=== PATIENT | male | born 1960 | race Caucasian/White ===

== ENCOUNTER 2025-05-04 22:10 | Emergency (ER) | payer MEDICAID, SELFPAY ==
--- OUTSIDE RECORDS SUMMARY | 2025-04-23 20:11 | XMS_ITS | Encounter Summary ---
Author Organization [facility] Address [address] [place] [address] Care Team Providers Care Physician Ophthalmologist Name Role Phone Physician, No Pcp Primary Care Provider Unavaila ble Reason for Visit * Reason Comments Urinary Retention Left AMA from room 5 61 about 2 hours ago. Now back for same complaint. * Auth/Cert (Routine) Specialty Diagnoses / Procedures Referred By Ashlee alexandra Referred To Contact Diagnoses Urinary retention Obstructive uropathy Procedures . Cresencio Farias MD [address] [place] [id number] Phone: tel: fax: [facility] [address] [place] [phone] Phone: tel: Referral ID Status Reason Start Date Expiration Date Visits Re quested Visits Authorized [id number] 1 1 Encounter Details Date Type Department Care Team (Latest Contact Info) Description 04/23/2025 8:11 PM EST - 05/04/2025 5:00 PM [facility] Hospital Encounter [facility] [address] [place] [phone] Micki Hayes MD [address] [place] [phone] Cresencio Farias MD [address] [place] [phone] Chandan Law MD [address] [place] [address] Dave Sandra MD [address] [place] [phone] Rafita Contreras MD [address] [place] [phone] Ricardo Loredo MD [address] [place], [place] [phone] Urinary retention (Primary Dx); Obstructive uropathy; Gross hematuria; Bilateral leg edema [facility] Social History Tobacco Use Types Packs/Day Years Used Date Smoking Tobacco: Former Cigarettes Smokeless Tobacco: Never Alcohol Use Standard Drinks/Week Comments Not Currently 0 (1 standard drink = 0.6 oz pur e alcohol) Housing Instability Answer Date Recorde d Are you worried that in the next 2 months you may not have stable housing? Patient declined 03/22/2025 Food Access & Nutrition Answer Date Rec orded Do you have access to a vari ety of food including fruits and vegetables? Patient declined 03/22/2025 Health Literacy Answer Date Recorded How often do you need to hav e someone help you when you read instructions, pamphlets, or other written material from your doctor or pharmacy? Patient declined 03/22/2025 Caregiver: How often do you need to have someone help you when you read instructions, pamphlets, or other written material from your doctor or pharmacy? Not on file Financial Risk Answer Date Recorded How hard is it for you to pa y for the very basics like food, housing, medical care, and air conditioning / heating? Patient declined 03/22/2025 Transportation Answer Date Recorded Has the lack of transportati on kept you from meetings, work, or from getting things needed for daily living? Patient declined 03/22/2025 Has the lack of transportati on kept you from medical appointments or from getting medications? Patient declined 03/22/2025 Social Isolation Answer Date Recorded How often do you feel lonely or isolated from those around you? Patient declined 03/22/2025 Food Risk Answer Date Recorded Within the past 12 months we worried whether our food would run out before we got money to buy more. Patient declined 025 Within the past 12 months th e food we bought just didn't last and we didn't have money to get more. Patient declined 02/25 Dependent Care Answer Date Recorded Do you need help finding or paying for care for your loved ones. For example, child care associate or elderly care for an older adult? Patient declined 03/22/2025 Education Answer Date Recorded Do you think completing more education or training, like finishing a GED, going to college, or learning a trade, would be helpful for you? Patient declined 03/22/2025 Employment and Income Answer Date Recor ded During the last four weeks, have you been actively looking for work? Patient declined 03/22/2025 Living Situation Answer Date Recorded What is your living situation? Unrecognized valu e 03/22/2025 Interpersonal Safety Answer Date Record ed Physical Abuse Unrecognized value 04/24/2025 Verbal Abuse Unrecognized value 04/24/2025 Sex and Gender Information Value Date Recorded Sex Assigned at Not on file Legal Sex Male 11:44 PM EST Gender Identity Not on file Sexual Orientation Not on file documented as of this encounter Last Filed Vital Signs Vital Sign Reading Time Taken Comments Blood Pressure 97/66 05/04/2025 3:21 PM EST Pulse 81 05/04/2025 3:21 PM EST Temperature 36.5 C (97.7 F) 05/04/2025 3:21 PM EST Respiratory Rate 16 05/04/2025 3:21 PM EST Oxygen Saturation 100% 05/04/2025 3:21 PM EST Inhaled Oxygen Concentration - - Weight 85.9 kg (189 lb 4.8 oz) 05/03/2025 6:00 A M EST Height 177.8 cm (5' 10 ) 04/23/2025 6:42 PM EST Body Mass Index 27.16 04/23/2025 6:42 PM EST documented in this encounter Functional Status * Calculated C-SSRS Risk Score (Lifetime/Recent) Answer Date of Assessment Author No Risk Indicated 04/24/2025 2:02 AM Jaz Schmidt RN * [place] Suicide Severity Rating Scale (Screener/Recent Self-Report) Question Answer Date of Assessment Author 1. Wish to be (Past 1 Month) No 025 2:02 AM Jaz Schmidt, ROLY 2. Non-Specific Active Suici prema Thoughts (Past 1 Month) No 04/24/2025 2:02 AM Galina Schmidt RN 6. Suicidal Behavior (Lifetime) No 5 2:02 AM Jaz Schmidt RN documented as of this encounter Discharge Summaries * Ricardo Loredo MD - 05/04/2025 12:41 PM EST Images from the original note were not included. [place] DISCHARGE SUMMARY Patient Information [facility] : 1960 [64 y.o.] Admitting Provider Cresencio Farias MD Discharge Provider Ricardo Loredo MD, Ricardo Loredo MD Primary Care Physician No Pcp Physician Admission Date 04/23/2025 Discharge Date 05/04/2025 Summary of Hospital Problems Primary Discharge Diagnosis: Obstructive uropathy Complicated UTI Discharge Destination: SNF Code Status at Discharge: Full Code - Default Hospital Course Summary LOS: 9 days 63-year-old male with a past medical history as above who presented to the hospital secondary to obstructive uropathy with bilateral hydronephrosis, patient was initially seen in the ED and left AGAINST MEDICAL ADVICE but returned soon after due to persistent retention. # CKD stage IV. Patient has advanced CKD presumably due to chronic obstruction, patient has refusedFoley catheter, has a history of BPH for which urology has seen the patient, currently he has been compliant with self-catheterization 4 times a day, patient has been extensively counseled about importance of compliance with this approach. Renal function remains close to baseline no clear evidence of BALWINDER. Patient has concomitant metabolic acidosis due to tubular dysfunction. Renal function has been monitored given ongoing diuresis, remains stable, patient seen by PT and recommended rehab # Complicated UTI. Patient has evidence of acute cystitis, culture showing ESBL E. coli, ceftriaxone has been discontinued, start renally adjusted meropenem, discussed with ID, recommended 7 days of carbapenem, given poor renal function and mild QTc prolongation not a candidate for other therapies.He has completed his treatment on 05/02/2025 # Obstructive uropathy secondary to BPH, he has bilateral hydronephrosis, patient absolutely refuses Dill catheter, he was seen by urology, he will follow-up with them as an outpatient, recommended continue straight cath 4 times a day. # Acute on chronic congestive heart failure with severe systolic dysfunction. Patient presented with evidence of volume overload, adequate diuresis, weight coming down, . Limited options for guideline directed medical therapy, volume status has improved and he has no signs of pulmonary congestion, started low- dose beta-patrick. Peripheral edema improving. Patient is stable for discharge on bumetanide and low-dose carvedilol, treatment can be optimized as an outpatient, he appears to be close toeuvolemia # Right lower extremity DVT. Patient was on Eliquis for recurrent DVT, patient has evidence of right thigh hematoma and question of bleeding in the left kidney, patient has refused IVC filter. Patient is at high risk for venous thrombolic event, he refuses to consider workup for PE, encourage ambulation, patient has been made fully aware of the risk of catastrophic thromboembolic phenomena. # Thigh hematoma, stable, H&H without significant change. No signs of expansion. # Dyspnea. The patient reported an episode of dyspnea at rest on 04/27/25, he denies any chest pain or palpitations, he has some intermittent cough, no acute changes, he stated this shortness of breath has been going on and off intermittently, at that time symptoms worsened and he demanded to get some supplemental oxygen for comfort despite having normal O2 saturation on room air, despite nasal cannula he continued to have shortness of breath and requested a mask, he was provided a shovel mask by respiratory therapy and he felt better, the episode lasted about 2 or 3 hours. Resolved without intervention. EKG showed sinus tachycardia with PVCs and nonspecific ST-T wave changes, chest x-ray shows some nonspecific patchy opacities in the bases and possibly a small pleural effusion, no significant changes when compared to prior study. The patient was made aware of the risk of PE, he is not on anticoagulation, he has documented lower extremity DVT of his right popliteal and has multiple comorbidities putting him at risk for venous thromboembolism. He has been offered IVC filter that he declined. His anticoagulation was discontinued because of suspected left renal bleed and left thigh hematoma, the patient states he would not take anticoagulation anyway. He is confident that his symptoms are not associated to venous thromboembolism, the patient was offered VQ scan that he declined. .His symptoms after he had a shovel mask placed by respiratory therapy are resolved, patient insist that he does not want any further workup to rule out PE. No new symptoms after initial event resolved. # Goals of care discussion. During this admission, given the multiple refusal to interventions and his hesitancy to consider renal replacement therapy should renal function worsened as well as refusing chronic indwelling Dill catheter I offer him to discuss goals of care, he is not interested in changing his CODE STATUS, he continues to be a full code, patient is hopeful that his medical issues will eventually improve, he does not want to discuss palliative approach or hospice services at thistime. He states his healthcare proxy his brother Michel who is currently going through stressful lifeevents as he recently lost his house in a fire and his also recently . He does not want him to be contacted and did not provide contact information. Update 05/04/25 : Patient cleared for SNF discharge. Will likely less than 4 weeks SNF stay. Outpatient follow-up with PCP and nephrology upon discharge. Follow-Up Instructions and Recommendations [facility] [address] [facility] [phone] Primary care provider (PCP) No Pcp Physician Discharge Procedure Orders Discharge Diet: Cardiac Heart Healthy Diet (Low Cholesterol / Low Fat / No Added Salt) Order Specific Question Answer Comments Discharge diet you should follow at home Cardiac Heart Healthy Diet (Low Cholesterol / Low Fat / NoAdded Salt) No strenuous activity Primary care provider (PCP) Order Specific Question Answer Comments Follow-Up as Needed Follow-Up as Needed There are no outpatient Patient Instructions on file for this admission. Discharge Medications Your medication list START taking these medications Instructions Last Dose Given Next Dose Due bumetanide 1 mg tablet Commonly known as: BUMEX Start taking on: May 05, 2025 Take 1 tablet (1 mg total) by mouth 1 (one) time each day. carvediloL 3.125 mg tablet Commonly known as: COREG Take 1 tablet (3.125 mg total) by mouth 2 (two) times a day with meals. finasteride 5 mg tablet Commonly known as: PROSCAR Start taking on: May 05, 2025 Take 1 tablet (5 mg total) by mouth 1 (one) time each day. Do not crush, chew, or split. senna 8.6 mg tablet Commonly known as: SENOKOT Take 2 tablets (17.2 mg total) by mouth 2 (two) times a day. sodium bicarbonate 650 mg tablet Take 1 tablet (650 mg total) by mouth 2 (two) times a day. CONTINUE taking these medications Instructions Last Dose Given Next Dose Due apixaban 5 mg tablet Commonly known as: ELIQUIS Take 1 tablet (5 mg total) by mouth 2 (two) times a day. tamsulosin 0.4 mg 24 hr capsule Commonly known as: FLOMAX Take 2 capsules (0.8 mg total) by mouth 1 (one) time each day. Capsules should be taken 30 minutes following the same meal each day. STOP taking these medications furosemide 20 mg tablet Commonly known as: LASIX Where to Get Your Medications Information about where to get these medications is not yet available Ask your nurse or doctor about these medications bumetanide 1 mg tablet carvediloL 3.125 mg tablet finasteride 5 mg tablet senna 8.6 mg tablet sodium bicarbonate 650 mg tablet Vitals Visit Vitals BP 109/77 Pulse 67 Temp 36.1 ??C (97 ??F) Resp 18 Temp (24hrs), Av.1 ??C (97 ??F), Min:35.9 ??C (96.6 ??F), Max:36.3 ??C (97.3 ??F) Body mass index is 27.16 kg/m??. No results found for: PTWT , PTHT Greater than 30 minutes spent preparing this discharge, evaluating patient, discussing care plan with nursing and ICC. documented in this encounter Medications at Time of Discharge apixaban (ELIQUIS) 5 mg tabletIndications :deep venous thrombosis Take 1 tablet (5 mg total) by mouth 2 (two) times a day. bumetanide (BUMEX) 1 mg tablet Take 1 tablet (1 mg total) by mouth 1 (one) time each day. 05/05/2025 6 carvediloL (COREG) 3.125 mg tablet Take 1 tablet (3.125 mg total) by mouth 2 (two) times a day with meals. 05/04/2025 6 finasteride (PROSCAR) 5 mg tablet Take 1 tablet (5 mg total) by mouth 1 (one) time each day. Do not crush, chew, or split. 05/05/2025 6 senna (SENOKOT) 8.6 mg tablet Take 2 tablets (17.2 mg total) by mouth 2 (two) times a day. 05/04/2025 sodium bicarbonate 650 mg tablet Take 1 tablet (650 mg total) by mouth 2 (two) times a day. 05/04/2025 tamsulosin (FLOMAX) 0.4 mg 24 hr capsule Take 2 capsules (0.8 mg total) by mouth 1 (one) time each day. Capsules should be taken 30 minutes following the same meal each day. documented as of this encounter Ordered Prescriptions Prescription Sig Dispense Quantity Refills Last Filled Start Date End Date sodium bicarbonate 650 mg tablet Take 1 tablet (650 mg total) by mouth 2 (two) times a day. 05/04/2025 senna (SENOKOT) 8.6 mg tablet Take 2 tablets (17.2 mg total) by mouth 2 (two) times a day. 05/04/2025 finasteride (PROSCAR) 5 mg tablet Take 1 tablet (5 mg total) by mouth 1 (one) time each day. Do not crush, chew, or split. 05/05/2025 6 carvediloL (COREG) 3.125 mg tablet Take 1 tablet (3.125 mg total) by mouth 2 (two) times a day with meals. 05/04/2025 6 bumetanide (BUMEX) 1 mg tablet Take 1 tablet (1 mg total) by mouth 1 (one) time each day. 05/05/2025 6 documented in this encounter Discharge Disposition Disposition Code Departure Means Destination Comment s [facility] documented in this encounter Progress Notes * YASSINE Romo - 05/04/2025 3:09 PM EST Secondary to documentation on 04-30-25 it was this writers understanding MDS was forwarded to [facility]/ Nursing Screening Unit. Today determined MDS not completed/forwarded. This social service assistant completed MDS and presented to ICC/RN for signature as required. Spoke with [facility], nursing reviewer who is informed we await approval enabling patient to dc to next level of care. [facility] arranged for 5pm in the event approval received. Unit /ICC updated. Message forwarded to liaison --await response. * Jean Claude Ford MD - 05/04/2025 10:35 AM EST Images from the original note were not included. Progress Note CHIEF COMPLAINT F/u CKD SUBJECTIVE Seen and examined MEDICAL HISTORY Medical History[1] MEDICATIONS MEDSSCHEDULED[2] MEDSPRN[3] MEDSCONTINUOUS[4] OBJECTIVE Vital signs in last 24 hours: Visit Vitals BP 109/77 Pulse 67 Temp 36.1 ??C (97 ??F) Resp 18 Intake/Output last 24 hours: Intake/Output Summary (Last 24 hours) at 05/04/2025 1035 Last data filed at 05/04/2025 0800 Gross per 24 hour Intake 960 ml Output 600 ml Net 360 ml Weights: Admission Weight: Weight: 86.6 kg (191 lb) Wt Readings from Last 3 Encounters: 05/03/25 85.9 kg (189 lb 4.8 oz) 04/23/25 86.7 kg (191 lb 3.2 oz) 04/16/25 83.9 kg (185 lb) Physical Exam: General: No acute distress HEENT: Normocephalic, atraumatic, anicteric Cardiovascular: S1 S2 normal Respiratory: unlabored Gl: soft non-distended Extremities: No cyanosis Neurological: Alert Integumentary: no rash Psych: Calm, cooperative LABS Results from last 7 days Lab Units 05/03/25 0553 05/02/25 0622 05/01/25 0711 WBC AUTO K/mcL 9.1 10.8 9.5 HEMOGLOBIN g/dL 10.4* 10.6* 10.7* HEMATOCRIT % 33.1* 33.7* 34.7* MCV FL 81.7 82.4 82.4 PLATELETS K/mcL 301 302 301 Results from last 7 days Lab Units 05/02/25 0622 05/01/25 0711 04/30/25 0704 CREATININE mg/dL 3.48* 3.47* 3.35* BUN mg/dL 98* 95* 92* SODIUM mmol/L 131* 134 135 POTASSIUM mmol/L 4.8 4.6 4.2 CHLORIDE mmol/L 99 102 102 CO2 mmol/L 18* 18* 19* Phosphorus Date Value Ref Range Status 05/02/2025 6.9 (H) 2.5 - 4.5 mg/dL Final 05/01/2025 6.1 (H) 2.5 - 4.5 mg/dL Final 04/30/2025 5.9 (H) 2.5 - 4.5 mg/dL Final No results found for: IRON , TIBC , FERRITIN No results found for: COLORUA , CLARITYUA , SPECGRAVUA , PHUA , PROTUA , GLUCOSEUA , KETONESUA , BILIRUBINUA , BLOODUA , UROBILINOGUA , NITRITEUA IMPRESSION and PLAN CKD 4 Metabolic acidosis Hydronephrosis HFrEF Scr stable at baseline CKD due to obstructive uropathy in the setting of outlet obstruction of the urinary bladder secondary to prostatomegaly CT scan of the abdomen had previously showed marked urinary bladder distention with associated severe hydronephrosis and moderate hydroureter Unknown baseline kidney function although suspect chronic obstructive uropathy Back in 2022 he had presented with difficulty passing urine and hematuria Per urology prior note: unwilling to have any testing, catheterization, workup, or discussion Patient refuses Dill and agreeable to straight cath himself Metabolic acidosis due to tubular dysfunction HFrEF with LVEF 28% REC Sodium bicarbonate 650 mg bid C/w bumetanide C/w tamsulosin Straight cath per patient Follow kidney function and electrolytes Jean Claude Ford MD [1] Past Medical History: Diagnosis Date DVT (deep venous thrombosis) ([facility] V24, [facility] V28) Hypertension [2] bumetanide, 1 mg, oral, Daily carvediloL, 3.125 mg, oral, BID with meals finasteride, 5 mg, oral, Daily polyetheylene glycol, 17 g, oral, Nightly senna, 2 tablet, oral, BID sodium bicarbonate, 650 mg, oral, BID sodium chloride, 10 mL, intravenous, BID tamsulosin, 0.8 mg, oral, Nightly [3] PRN medications: acetaminophen, LORazepam, naloxone, ondansetron (ZOFRAN- ODT) disintegrating tablet OR ondansetron, Insert peripheral IV AND Maintain IV access AND Saline lock IV AND sodium chloride AND sodium chloride [4] * YASSINE Romo - 05/04/2025 9:34 AM EST Per attending patient stable for transfer at 2pm to [facility]. Transport arrangedwith [place] liaison and confirmed. Transfer is contingent on [facility] MDS approval submitted 05-03-25. Liaison communicated with [facility] whose intention it was to review screen this am allowing pt to be considered for next level of care. Nursing and ICC to be informed of plan at am rounds. It is noted patient has declined family communication. Social work to verify with patient chooses destination be shared with family. To follow. * YASSINE Romo - 05/03/2025 2:[address] Parish [facility] Per Gabby acosta; MDS approval anticipated in am per her conversation with [facility]/ nursing. To follow. * Linda Hatch PT - 05/03/2025 11:30 AM EST [facility] Physical Therapy Treatment PT Discharge Recommendations: longterm facility placement Staff Recommendations for safe patient handling: stand by assist, rwalker Precautions Medical Precautions: Fall Risk, Contact Safety Interventions: Call agrawal within reach RUE Weight Bearing Status: Full LUE Weight Bearing Status: Full RLE Weight Bearing Status: Full LLE Weight Bearing Status: Full History of Present Illness: Patient is a 64 y.o. male admitted to [facility] on 04/23/2025 with: Problem List[1] Modified Woods Scale: 3=Moderate disability. Requires some help, but able to walk unassisted. Fall prevention education provided including use of call light in hospital, use of appropriate assistive device, safe mobility techniques, and safety measures at home. Continue PT as per POC. Subjective You dont have to worry about my balance Objective 05/03/25 1130 PT Last Visit PT Received On 05/03/25 General Family/Caregiver Present No PT Time Calculation PT Start Time 1130 PT Stop Time 1200 PT Time Calculation (min) 30 min Precautions Medical Precautions Fall Risk;Contact Safety Interventions Call agrawal within reach RUE Weight Bearing Status Full LUE Weight Bearing Status Full RLE Weight Bearing Status Full LLE Weight Bearing Status Full Vital Signs Heart Rate 72 SpO2 100 % Oxygen Therapy O2 Flow Rate (L/min) 1.5 L/min Pain Assessment Pain Assessment No/denies pain Cognition Overall Cognitive Status WFL Activity Tolerance Endurance Tolerates 10 - 20 min exercise with multiple rests Activity Tolerance Comments pt fatigued quickly after ambulating 20 ft Static Sitting Balance Static Sitting-Level of Assistance Independent Static Standing Balance Static Standing-Level of Assistance Standby assistance Static Standing-Balance Support Right upper extremity supported;Left upper extremity supported Dynamic Standing Balance Dynamic Standing-Level of Assistance Standby assistance Dynamic Standing-Balance Ambulation Dynamic Standing-Balance Support Right upper extremity supported;Left upper extremity supported Transfers Sit to Stand Assistance Close supervision Chair/Bed to Chair/Bed Transfer Assistance Standby assistance Ambulation Walking Assistance Standby assistance Device Rolling walker Distance Ambulated (ft) 20 Comments pt completed ambulating 20 ft, but stated that was enough exercise for now Procedures Procedures Therapeutic Activity Therapeutic Activity Therapeutic Activity Time Entry 30 Therapeutic Activity 1 pt in bed at outset of visit; moved supine-sitting independently , and movedsit to stand without difficulty; assistance given to manage long 02 tubing; pt ambulated with rwalker x 20 f t in room before sitting down; sba given and occasional assistance with 02 tubing ; offered to place commode over toilet to raise the seat height but pt prefers using commode. Pt not interested in further actiivty , stating fatigue PT Assessment PT Assessment Results Decreased endurance;Decreased mobility;Impaired gait;Impaired balance Prognosis Good Evaluation/Treatment Tolerance Patient limited by fatigue Medical Staff Made Aware Yes Plan Treatment/Interventions Functional transfer training;LE strengthening/ROM;Endurance training;Patient/family training;Equipment eval/education;Gait training;Compensatory technique education;Continued e valuation;Balance training PT Plan Skilled PT PT Frequency 2-5 days per week PT Discharge Recommendations longterm facility placement PT - Evaluation Status Complete Procedure/Treatment: Procedures Procedures: Therapeutic Activity Therapeutic Activity Therapeutic Activity Time Entry: 30 Therapeutic Activity 1: pt in bed at outset of visit; moved supine-sitting independently , and moved sit to stand without difficulty; assistance given to manage long 02 tubing; pt ambulated with rwalker x 20 f t in room before sitting down; sba given and occasional assistance with 02 tubing ; offered to place commode over toilet to raise the seat height but pt prefers using commode. Pt not interested in further actiivty , stating fatigue Patient left sitting up in bed. RN notified of pt. status, location, response to treatment, and therapy recommendations. Physical Therapy Assessment/Plan PT Assessment PT Assessment Results: Decreased endurance, Decreased mobility, Impaired gait, Impaired balance Prognosis: Good Evaluation/Treatment Tolerance: Patient limited by fatigue Medical Staff Made Aware: Yes Plan Treatment/Interventions: Functional transfer training, LE strengthening/ROM, Endurance training, Patient/family training, Equipment eval/education, Gait training, Compensatory technique education, Continued evaluation, Balance training PT Plan: Skilled PT PT Frequency: 2-5 days per week PT Duration of Sessions: 15-30 min per session PT Treatments per day: 1 time per day PT Discharge Recommendations: longterm facility placement PT - Evaluation Status: Complete Physical Therapy Goals/Education Encounter Problems Encounter Problems (Active) Template: Physical Therapy Problem: PT Short Term Goals Dates: Start: 04/29/25 Goal: Pt will ambulate up to 100ft with RW with Supervision Dates: Start: 04/29/25 Expected End: 05/06/25 Encounter Problems (Resolved) There are no resolved problems. Education Documentation Home Exercise Program, taught by Linda Hatch PT at 05/03/2025 2:55 PM. Learner: Patient Readiness: Acceptance Method: Explanation Response: Verbalizes Understanding Comment: pt educated in importance of physical actiivty Mobility Training, taught by Linda Hatch PT at 05/03/2025 2:55 PM. Learner: Patient Readiness: Acceptance Method: Explanation Response: Verbalizes Understanding Comment: pt educated in importance of physical actiivty Education Comments No comments found. Linda Hatch PT [1] Patient Active Problem List Diagnosis ARF (acute renal failure) (CMS/[facility] V24) Left leg pain Urinary retention Obstructive uropathy * Ricardo Loredo MD - 05/03/2025 11:29 AM EST Images from the original note were not included. ROSS PROGRESS NOTE Date: 05/03/2025 Author: Ricardo Loredo MD Patient ID: Gallito Heart is a 64 y.o. male : 1960 MR#: [id number] SUBJECTIVE Subjective Patient seen and examined by bedside Remains non compliant Nephrology following - appreciate recommendations Allergies Patient has no known allergies. Current Medications: MEDSSCHEDULED[1] MEDSCONTINUOUS[2] MEDSPRN[3] OBJECTIVE Vitals: 05/02/25201205/03/25 0315 05/03/25 0600 05/03/25 08 BP: 98/84 105/86 111/87 BP Location: Right arm Right arm Right arm Patient Position: Sitting Sitting Pulse: 78 75 72 Resp: 16 18 16 Temp: 36.4 ??C (97.5 ??F) 36.5 ??C (97.7 ??F) 36.5 ??C (97.7 ??F) TempSrc: Oral Oral Oral SpO2: 100% 100% 100% Weight: 85.9 kg (189 lb 4.8 oz) Height: Physical Exam General : Pt lying in bed in no acute distress Head : NC/AT Resp : CTA B/L, no audible wheezing CVS : RRR, no audible murmurs GI : Abd distended, NT Neuro : Alert and oriented x 3 LABS HEMATOLOGY Lab Results Component Value Date WBC 9.1 05/03/2025 HGB 10.4 (L) 05/03/2025 HCT 33.1 (L) 05/03/2025 MCV 81.7 05/03/2025 PLT 301 05/03/2025 CHEMISTRY Lab Results Component Value Date GLUCOSE 95 05/02/2025 NA 131 (L) 05/02/2025 K 4.8 05/02/2025 CO2 18 (L) 05/02/2025 CL 99 05/02/2025 BUN 98 (H) 05/02/2025 CREATININE 3.48 (H) 05/02/2025 EGFR 19 (L) 05/02/2025 CALCIUM 7.7 (L) 05/02/2025 MG 1.9 05/02/2025 PHOS 6.9 (H) 05/02/2025 ANIONGAP 14 (H) 05/02/2025 Imaging: XR Chest 1 View Narrative: PROCEDURE: AP chest radiograph. HISTORY: SOB, pulmonary edema suspected. COMPARISON: 04/15/2025. FINDINGS: Mildly hypoventilatory inspiratory effort. Patchy linear opacities at the bases, left greater than right, more extensive than on the previous study. Slight blunting of the right costophrenic angle, pleural thickening versus a trace pleural effusion. Stable mild cardiac enlargement. Mild degenerative changes of the spine and shoulders. Impression: Patchy opacities at both bases appears slightly more prominent than on the previous study. Trace right pleural effusion or pleural thickening. -------- FINAL REPORT -------- Dictated By: Uche Ham Dictated Date: 04/27/2025 12:51 ET Assigned Physician: Uche Ham Reviewed and Electronically Signed By: Uche Ham Signed Date: 04/27/2025 12:56 ET Workstation ID: [id number] Transcribed By: Self Edit Transcribed Date: 04/27/2025 12:51 ET ASSESSMENT & PLAN 63-year-old male with a past medical history as above who presented to the hospital secondary to obstructive uropathy with bilateral hydronephrosis, patient was initially seen in the ED and left AGAINST MEDICAL ADVICE but returned soon after due to persistent retention. # CKD stage IV. Patient has advanced CKD presumably due to chronic obstruction, patient has refusedFoley catheter, has a history of BPH for which urology has seen the patient, currently he has been compliant with self-catheterization 4 times a day, patient has been extensively counseled about importance of compliance with this approach. Renal function remains close to baseline no clear evidence of BALWINDER. Patient has concomitant metabolic acidosis due to tubular dysfunction. Renal function has been monitored given ongoing diuresis, remains stable, patient seen by PT and recommended rehab, awaiting placement. # Complicated UTI. Patient has evidence of acute cystitis, culture showing ESBL E. coli, ceftriaxone has been discontinued, start renally adjusted meropenem, discussed with ID, recommended 7 days of carbapenem, given poor renal function and mild QTc prolongation not a candidate for other therapies.He has completed his treatment on 05/02/2025 # Obstructive uropathy secondary to BPH, he has bilateral hydronephrosis, patient absolutely refuses Dill catheter, he was seen by urology, he will follow-up with them as an outpatient, recommended continue straight cath 4 times a day. # Acute on chronic congestive heart failure with severe systolic dysfunction. Patient presented with evidence of volume overload, adequate diuresis, weight coming down, . Limited options for guideline directed medical therapy, volume status has improved and he has no signs of pulmonary congestion, started low- dose beta-patrick. Peripheral edema improving. Patient is stable for discharge on bumetanide and low-dose carvedilol, treatment can be optimized as an outpatient, he appears to be close toeuvolemia # Right lower extremity DVT. Patient was on Eliquis for recurrent DVT, patient has evidence of right thigh hematoma and question of bleeding in the left kidney, patient has refused IVC filter. Patient is at high risk for venous thrombolic event, he refuses to consider workup for PE, encourage ambulation, patient has been made fully aware of the risk of catastrophic thromboembolic phenomena. # Thigh hematoma, stable, H&H without significant change. No signs of expansion. # Dyspnea. The patient reported an episode of dyspnea at rest on 04/27/25, he denies any chest pain or palpitations, he has some intermittent cough, no acute changes, he stated this shortness of breath has been going on and off intermittently, at that time symptoms worsened and he demanded to get some supplemental oxygen for comfort despite having normal O2 saturation on room air, despite nasal cannula he continued to have shortness of breath and requested a mask, he was provided a shovel mask by respiratory therapy and he felt better, the episode lasted about 2 or 3 hours. Resolved without intervention. EKG showed sinus tachycardia with PVCs and nonspecific ST-T wave changes, chest x-ray abe ws some nonspecific patchy opacities in the bases and possibly a small pleural effusion, no significant changes when compared to prior study. The patient was made aware of the risk of PE, he is not on anticoagulation, he has documented lower extremity DVT of his right popliteal and has multiple comorbidities putting him at risk for venous thromboembolism. He has been offered IVC filter that he declined. His anticoagulation was discontinued because of suspected left renal bleed and left thigh hematoma, the patient states he would not take anticoagulation anyway. He is confident that his symptoms are not associated to venous thromboembolism, the patient was offered VQ scan that he declined. .His symptoms after he had a shovel mask placed by respiratory therapy are resolved, patient insist that he does not want any further workup to rule out PE. No new symptoms after initial event resolved. # Goals of care discussion. During this admission, given the multiple refusal to interventions and his hesitancy to consider renal replacement therapy should renal function worsened as well as refusing chronic indwelling Dill catheter I offer him to discuss goals of care, he is not interested in changing his CODE STATUS, he continues to be a full code, patient is hopeful that his medical issues will eventually improve, he does not want to discuss palliative approach or hospice services at thistime. He states his healthcare proxy his brother Michel who is currently going through stressful lifeevents as he recently lost his house in a fire and his also recently . He does not want him to be contacted and did not provide contact information. This dictation was performed using voice recognition software. Word substitution may have occurred and may have gone unnoticed and uncorrected. [1] bumetanide, 1 mg, oral, Daily carvediloL, 3.125 mg, oral, BID with meals finasteride, 5 mg, oral, Daily polyetheylene glycol, 17 g, oral, Nightly senna, 2 tablet, oral, BID sodium bicarbonate, 650 mg, oral, BID sodium chloride, 10 mL, intravenous, BID tamsulosin, 0.8 mg, oral, Nightly [2] [3] PRN medications: acetaminophen, LORazepam, naloxone, ondansetron (ZOFRAN- ODT) disintegrating tablet OR ondansetron, Insert peripheral IV AND Maintain IV access AND Saline lock IV AND sodium chloride AND sodium chloride * Jean Claude Ford MD - 05/03/2025 11:12 AM EST Images from the original note were not included. Progress Note CHIEF COMPLAINT F/u CKD SUBJECTIVE Seen and examined He is upset about his food MEDICAL HISTORY Medical History[1] MEDICATIONS MEDSSCHEDULED[2] MEDSPRN[3] MEDSCONTINUOUS[4] OBJECTIVE Vital signs in last 24 hours: Visit Vitals BP 111/87 (BP Location: Right arm) Pulse 72 Temp 36.5 ??C (97.7 ??F) (Oral) Resp 16 Intake/Output last 24 hours: Intake/Output Summary (Last 24 hours) at 05/03/2025 1112 Last data filed at 05/03/2025 1000 Gross per 24 hour Intake 605 ml Output 875 ml Net -270 ml Weights: Admission Weight: Weight: 86.6 kg (191 lb) Wt Readings from Last 3 Encounters: 05/03/25 85.9 kg (189 lb 4.8 oz) 04/23/25 86.7 kg (191 lb 3.2 oz) 04/16/25 83.9 kg (185 lb) Physical Exam: General: No acute distress HEENT: Normocephalic, atraumatic, anicteric Cardiovascular: S1 S2 normal Respiratory: unlabored Gl: soft non-distended Extremities: No cyanosis Neurological: Alert Integumentary: no rash Psych: Calm, cooperative LABS Results from last 7 days Lab Units 05/03/25 0553 05/02/25 0622 05/01/25 0711 WBC AUTO K/mcL 9.1 10.8 9.5 HEMOGLOBIN g/dL 10.4* 10.6* 10.7* HEMATOCRIT % 33.1* 33.7* 34.7* MCV FL 81.7 82.4 82.4 PLATELETS K/mcL 301 302 301 Results from last 7 days Lab Units 05/02/25 0622 05/01/25 0711 04/30/25 0704 CREATININE mg/dL 3.48* 3.47* 3.35* BUN mg/dL 98* 95* 92* SODIUM mmol/L 131* 134 135 POTASSIUM mmol/L 4.8 4.6 4.2 CHLORIDE mmol/L 99 102 102 CO2 mmol/L 18* 18* 19* Phosphorus Date Value Ref Range Status 05/02/2025 6.9 (H) 2.5 - 4.5 mg/dL Final 05/01/2025 6.1 (H) 2.5 - 4.5 mg/dL Final 04/30/2025 5.9 (H) 2.5 - 4.5 mg/dL Final No results found for: IRON , TIBC , FERRITIN No results found for: COLORUA , CLARITYUA , SPECGRAVUA , PHUA , PROTUA , GLUCOSEUA , KETONESUA , BILIRUBINUA , BLOODUA , UROBILINOGUA , NITRITEUA IMPRESSION and PLAN CKD 4 Metabolic acidosis Hydronephrosis HFrEF Scr stable probably his baseline CKD due to obstructive uropathy in the setting of outlet obstruction of the urinary bladder secondary to prostatomegaly CT scan of the abdomen had previously showed marked urinary bladder distention with associated severe hydronephrosis and moderate hydroureter Unknown baseline kidney function although suspect chronic obstructive uropathy Back in 2022 he had presented with difficulty passing urine and hematuria Per urology prior note: unwilling to have any testing, catheterization, workup, or discussion Patient refuses Dill and agreeable to straight cath himself Metabolic acidosis due to tubular dysfunction HFrEF with LVEF 28% REC Sodium bicarbonate 650 mg bid C/w bumetanide C/w tamsulosin Straight cath Follow kidney function and electrolytes Jean Claude Ford MD [1] Past Medical History: Diagnosis Date DVT (deep venous thrombosis) ([facility] V24, [facility] V28) Hypertension [2] bumetanide, 1 mg, oral, Daily carvediloL, 3.125 mg, oral, BID with meals finasteride, 5 mg, oral, Daily polyetheylene glycol, 17 g, oral, Nightly senna, 2 tablet, oral, BID sodium chloride, 10 mL, intravenous, BID tamsulosin, 0.8 mg, oral, Nightly [3] PRN medications: acetaminophen, LORazepam, naloxone, ondansetron (ZOFRAN- ODT) disintegrating tablet OR ondansetron, Insert peripheral IV AND Maintain IV access AND Saline lock IV AND sodium chloride AND sodium chloride [4] * Cari Norman RN - 05/03/2025 10:17 AM EST This RN provided straight catheterization kit to patient , Patient refused to straight catheterize himself. This RN provided education to patient and offered to straight catheterize , patient refused. Patient states : I'll do it when I'm ready. Additional education provided on Q6 hour straight catheterization. * Jean Claude Garrett RN - 05/02/2025 6:26 PM EST Goals: Identify possible barriers to meeting goals/advancing plan of care: Awaiting rehab placement Stability of the patient: Moderately Stable - Low risk of patient condition declining or worsening End of Shift Summary: Patient breathing mor comfortably this shift. Encouraged q6h straight cathing, encouraged patient to chose the interval of times that work best for him d/t fatigue after meals. Remains uninterested in F/C option despite frequency of straight caths. * YASSINE Briscoe - 05/02/2025 4:16 PM EST Rim Technician- CM Progress Note Patient continues to require acute level hospital care. HELADIO: 05/03-05/04 Barriers: [place] Medicaid screen Disposition: SNF- [facility] and network systems analyst requested that this investigative writer discuss discharge disposition and process with patient. Patient awareand voiced understanding, no questions and appreciated information. Case management social media manager will remain available to assess, support, provide advocacy and assist with discharge planning as appropriate. * Rafita Contreras MD - 05/02/2025 3:06 PM EST Gallito Reganestrada [birth year] 64 y.o. [id number] Rafita Contreras, * INTERVAL HISTORY: No events overnight PAST MEDICAL HISTORY:Hypertension, CKD stage IV, BPH, history of lower extremity cellulitis, history of DVT of the lower extremity x 2, chronic systolic heart failure, severe mitral regurgitation, anemia of chronic disease, history of alcohol abuse, noncompliance. ED TRIAGE REPORT: He was inpatient here for urinary retention due to BPH but left AMA today because he wanted chap stick and some inhaler and couldn't get any. He has checked back in to continue histreatment. He states that he was getting catheterized every 6 hours. He states that he doesn't feellike his bladder is full. A bladder scan was just done and he has greater than 499 currently. He isrefusing to be straight cathed. ASSESSMENT/PLAN: 63-year-old male with a past medical history as above who presented to the hospital secondary to obstructive uropathy with bilateral hydronephrosis, patient was initially seen in theED and left AGAINST MEDICAL ADVICE but returned soon after due to persistent retention. # CKD stage IV. Patient has advanced CKD presumably due to chronic obstruction, patient has refusedFoley catheter, has a history of BPH for which urology has seen the patient, currently he has been compliant with self-catheterization 4 times a day, patient has been extensively counseled about importance of compliance with this approach. Renal function remains close to baseline no clear evidence of BALWINDER. Patient has concomitant metabolic acidosis due to tubular dysfunction. Renal function has been monitored given ongoing diuresis, remains stable, patient seen by PT and recommended rehab, awaiting placement. # Complicated UTI. Patient has evidence of acute cystitis, culture showing ESBL E. coli, ceftriaxone has been discontinued, start renally adjusted meropenem, discussed with ID, recommended 7 days of carbapenem, given poor renal function and mild QTc prolongation not a candidate for other therapies.He has completed his treatment on 05/02/2025 # Obstructive uropathy secondary to BPH, he has bilateral hydronephrosis, patient absolutely refuses Dill catheter, he was seen by urology, he will follow-up with them as an outpatient, recommended continue straight cath 4 times a day. # Acute on chronic congestive heart failure with severe systolic dysfunction. Patient presented with evidence of volume overload, adequate diuresis, weight coming down, . Limited options for guideline directed medical therapy, volume status has improved and he has no signs of pulmonary congestion, started low- dose beta-patrick. Peripheral edema improving. Patient is stable for discharge on bumetanide and low-dose carvedilol, treatment can be optimized as an outpatient, he appears to be close toeuvolemia # Right lower extremity DVT. Patient was on Eliquis for recurrent DVT, patient has evidence of right thigh hematoma and question of bleeding in the left kidney, patient has refused IVC filter. Patient is at high risk for venous thrombolic event, he refuses to consider workup for PE, encourage ambulation, patient has been made fully aware of the risk of catastrophic thromboembolic phenomena. # Thigh hematoma, stable, H&H without significant change. No signs of expansion. # Dyspnea. The patient reported an episode of dyspnea at rest on 04/27/25, he denies any chest pain or palpitations, he has some intermittent cough, no acute changes, he stated this shortness of breath has been going on and off intermittently, at that time symptoms worsened and he demanded to get some supplemental oxygen for comfort despite having normal O2 saturation on room air, despite nasal cannula he continued to have shortness of breath and requested a mask, he was provided a shovel mask by respiratory therapy and he felt better, the episode lasted about 2 or 3 hours. Resolved without intervention. EKG showed sinus tachycardia with PVCs and nonspecific ST-T wave changes, chest x-ray abe ws some nonspecific patchy opacities in the bases and possibly a small pleural effusion, no significant changes when compared to prior study. The patient was made aware of the risk of PE, he is not on anticoagulation, he has documented lower extremity DVT of his right popliteal and has multiple comorbidities putting him at risk for venous thromboembolism. He has been offered IVC filter that he declined. His anticoagulation was discontinued because of suspected left renal bleed and left thigh hematoma, the patient states he would not take anticoagulation anyway. He is confident that his symptoms are not associated to venous thromboembolism, the patient was offered VQ scan that he declined. .His symptoms after he had a shovel mask placed by respiratory therapy are resolved, patient insist that he does not want any further workup to rule out PE. No new symptoms after initial event resolved. # Goals of care discussion. During this admission, given the multiple refusal to interventions and his hesitancy to consider renal replacement therapy should renal function worsened as well as refusing chronic indwelling Dill catheter I offer him to discuss goals of care, he is not interested in changing his CODE STATUS, he continues to be a full code, patient is hopeful that his medical issues will eventually improve, he does not want to discuss palliative approach or hospice services at thistime. He states his healthcare proxy his brother Michel who is currently going through stressful lifeevents as he recently lost his house in a fire and his also recently . He does not want him to be contacted and did not provide contact information. Disposition: Social work following, RESULTS: CBC. Results from last 7 days Lab Units 05/02/25 0622 05/01/25 0711 04/30/25 0704 WBC AUTO K/mcL 10.8 9.5 8.3 HEMOGLOBIN g/dL 10.6* 10.7* 9.8* HEMATOCRIT % 33.7* 34.7* 30.2* MCV FL 82.4 82.4 80.7 PLATELETS K/mcL 302 301 271 LYMPHS PCT AUTO % 19.1 20.2 20.3 MONO PCT AUTO % 11.9 12.9 12.0 EOS PCT AUTO % 1.2 1.6 0.8 Coag Results from last 7 days Lab Units 04/26/25 0649 INR 1.4 Anti-Xa Hematology No lab exists for component: LACTATEDEHYD BMP Results from last 7 days Lab Units 05/02/25 0622 05/01/25 0711 04/30/25 0704 SODIUM mmol/L 131* 134 135 POTASSIUM mmol/L 4.8 4.6 4.2 CHLORIDE mmol/L 99 102 102 CO2 mmol/L 18* 18* 19* ANION GAP 14* 14* 14* BUN mg/dL 98* 95* 92* CREATININE mg/dL 3.48* 3.47* 3.35* CALCIUM mg/dL 7.7* 8.3* 7.9* MAGNESIUM mg/dL 1.9 2.0 1.8* PHOSPHORUS mg/dL 6.9* 6.1* 5.9* Cardiac LFT/other Metabolic No lab exists for component: FREET3 , SEDRATEESR , CRPHIGHLYSEN , LDLCHOL Glucose. Results from last 7 days Lab Units 05/02/25 0622 05/01/25 0711 04/30/25 0704 04/29/25 0718 04/28/25 0557 04/27/25 0644 04/26/25 0649 GLUCOSE mg/dL 95 92 89 94 89 89 95 Scheduled Medications PRN Medications IV Medications bumetanide, 1 mg, Daily carvediloL, 3.125 mg, BID with meals finasteride, 5 mg, Daily meropenem, 500 mg, q12h polyetheylene glycol, 17 g, Nightly senna, 2 tablet, BID sodium chloride, 10 mL, BID tamsulosin, 0.8 mg, Nightly acetaminophen, 650 mg, q6h PRN LORazepam, 0.5 mg, q12h PRN naloxone, 0.04 mg, PRN ondansetron (ZOFRAN-ODT) disintegrating tablet, 4 mg, q8h PRN Or ondansetron, 4 mg, q8h PRN sodium chloride, 10 mL, PRN SUBJECTIVE : Shortness of breath with activity which is his baseline, no other complaints, he reports he has ambulated in the room. Having regular bowel movements including today. No overt bleeding. OBJECTIVE: Vitals: 05/02/25 0437 05/02/25 0600 05/02/25 0749 05/02/25 1453 BP: 98/81 106/88 (!) 111/90 BP Location: Right arm Patient Position: Lying Pulse: 65 69 78 Resp: 18 18 20 Temp: 36.3 ??C (97.4 ??F) 36 ??C (96.8 ??F) 36.2 ??C (97.2 ??F) TempSrc: Temporal SpO2: 100% 100% 100% Weight: 86.1 kg (189 lb 14.4 oz) Height: Temp (24hrs), Av.3 ??C (97.3 ??F), Min:36 ??C (96.8 ??F), Max:36.4 ??C (97.6 ??F) Intake/Output Summary (Last 24 hours) at 05/02/2025 1507 Last data filed at 05/02/2025 1207 Gross per 24 hour Intake 600 ml Output 1275 ml Net -675 ml Wt Readings from Last 1 Encounters: 05/02/25 0600 86.1 kg (189 lb 14.4 oz) 04/30/25 0600 85.6 kg (188 lb 12.8 oz) 04/30/25 0500 85.6 kg (188 lb 12.8 oz) 04/29/25 0500 84.2 kg (185 lb 9.6 oz) 04/27/25 0600 82.9 kg (182 lb 12.8 oz) 04/26/25 06 84.5 kg (186 lb 3.2 oz) 04/25/25 06 85.7 kg (189 lb) 04/24/25 0600 86.8 kg (191 lb 6.4 oz) 04/23/25 1842 86.6 kg (191 lb) PHYSICAL EXAM: Gen: Alert,, anxious. Not in acute distress CV -RRR no MGR Lungs -CTAB, good air movement, no increased work of breathing Abd - Soft, non-tender, non-distended Extremities - No LE edema, left thigh palpable hematoma, stable, ecchymosis present. Neuro - AO x3, speech is clear, face is symmetric Imaging: XR Chest 1 View Narrative: PROCEDURE: AP chest radiograph. HISTORY: SOB, pulmonary edema suspected. COMPARISON: 04/15/2025. FINDINGS: Mildly hypoventilatory inspiratory effort. Patchy linear opacities at the bases, left greater than right, more extensive than on the previous study. Slight blunting of the right costophrenic angle, pleural thickening versus a trace pleural effusion. Stable mild cardiac enlargement. Mild degenerative changes of the spine and shoulders. Impression: Patchy opacities at both bases appears slightly more prominent than on the previous study. Trace right pleural effusion or pleural thickening. -------- FINAL REPORT -------- Dictated By: Uche Ham Dictated Date: 04/27/2025 12:51 ET Assigned Physician: Uche Ham Reviewed and Electronically Signed By: Uche Ham Signed Date: 04/27/2025 12:56 ET Workstation ID: [id number] Transcribed By: Self Edit Transcribed Date: 04/27/2025 12:51 ET [x] Code status: Full Code - Default [x] VTE Prophylaxis: Pharmacological contraindicated given hematoma and renal bleed. [x] Lines, tubes, drains: Straight catheterization intermittently Health Care proxy with Phone number: Patient refused to provide contact information for his brotherwho he states he is the healthcare proxy. * Jean Claude Ford MD - 05/02/2025 3:05 PM EST Images from the original note were not included. Progress Note CHIEF COMPLAINT F/u CKD SUBJECTIVE Seen and examined MEDICAL HISTORY Medical History[1] MEDICATIONS MEDSSCHEDULED[2] MEDSPRN[3] MEDSCONTINUOUS[4] OBJECTIVE Vital signs in last 24 hours: Visit Vitals BP (!) 111/90 Pulse 78 Temp 36.2 ??C (97.2 ??F) Resp 20 Intake/Output last 24 hours: Intake/Output Summary (Last 24 hours) at 05/02/2025 1505 Last data filed at 05/02/2025 1207 Gross per 24 hour Intake 600 ml Output 1275 ml Net -675 ml Weights: Admission Weight: Weight: 86.6 kg (191 lb) Wt Readings from Last 3 Encounters: 05/02/25 86.1 kg (189 lb 14.4 oz) 04/23/25 86.7 kg (191 lb 3.2 oz) 04/16/25 83.9 kg (185 lb) Physical Exam: General: No acute distress HEENT: Normocephalic, atraumatic, anicteric Cardiovascular: S1 S2 normal Respiratory: unlabored Gl: soft non-distended Extremities: No cyanosis Neurological: Alert Integumentary: no rash Psych: Calm, cooperative LABS Results from last 7 days Lab Units 05/02/25 0622 05/01/25 0711 04/30/25 0704 WBC AUTO K/mcL 10.8 9.5 8.3 HEMOGLOBIN g/dL 10.6* 10.7* 9.8* HEMATOCRIT % 33.7* 34.7* 30.2* MCV FL 82.4 82.4 80.7 PLATELETS K/mcL 302 301 271 Results from last 7 days Lab Units 05/02/25 0622 05/01/25 0711 04/30/25 0704 CREATININE mg/dL 3.48* 3.47* 3.35* BUN mg/dL 98* 95* 92* SODIUM mmol/L 131* 134 135 POTASSIUM mmol/L 4.8 4.6 4.2 CHLORIDE mmol/L 99 102 102 CO2 mmol/L 18* 18* 19* Phosphorus Date Value Ref Range Status 05/02/2025 6.9 (H) 2.5 - 4.5 mg/dL Final 05/01/2025 6.1 (H) 2.5 - 4.5 mg/dL Final 04/30/2025 5.9 (H) 2.5 - 4.5 mg/dL Final No results found for: IRON , TIBC , FERRITIN No results found for: COLORUA , CLARITYUA , SPECGRAVUA , PHUA , PROTUA , GLUCOSEUA , KETONESUA , BILIRUBINUA , BLOODUA , UROBILINOGUA , NITRITEUA IMPRESSION and PLAN CKD 4 Metabolic acidosis Hydronephrosis HFrEF Scr stable CKD due to obstructive uropathy in the setting of outlet obstruction of the urinary bladder secondary to prostatomegaly CT scan of the abdomen had previously showed marked urinary bladder distention with associated severe hydronephrosis and moderate hydroureter Unknown baseline kidney function although suspect chronic obstructive uropathy Back in 2022 he had presented with difficulty passing urine and hematuria Per urology prior note: unwilling to have any testing, catheterization, workup, or discussion Patient refuses Dill and agreeable to straight cath himself Metabolic acidosis due to tubular dysfunction HFrEF with LVEF 28% REC C/w bumetanide C/w tamsulosin Educate patient he will end up on dialysis in the next 6-12 months if he refuses intervention Follow kidney function and electrolytes Jean Claude Ford MD [1] Past Medical History: Diagnosis Date DVT (deep venous thrombosis) ([facility] V24, [facility] V28) Hypertension [2] bumetanide, 1 mg, oral, Daily carvediloL, 3.125 mg, oral, BID with meals finasteride, 5 mg, oral, Daily meropenem, 500 mg, intravenous, q12h polyetheylene glycol, 17 g, oral, Nightly senna, 2 tablet, oral, BID sodium chloride, 10 mL, intravenous, BID tamsulosin, 0.8 mg, oral, Nightly [3] PRN medications: acetaminophen, LORazepam, naloxone, ondansetron (ZOFRAN- ODT) disintegrating tablet OR ondansetron, Insert peripheral IV AND Maintain IV access AND Saline lock IV AND sodium chloride AND sodium chloride [4] * Nevin García - 05/02/2025 1:15 PM EST SPIRITUAL CARE Date/Time:05/02/2025 at 1:15 PM EST 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 of Visit: 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 Reason for Visit: Spiritual/Emotional Support and Spiritual Assessment Time Spent: 15 Minutes Location: [address] [place] [address] Sacramental Encounters: Sacrament of Sick-Anointing: Anointed Spiritual Distress Assessment: Spiritual Distress Assessment at beginning of visit Meaning - Overall Life Balance: Some evidence of unmet spiritual need Transcendence: No evidence of unmet spiritual need Values - Acknowledgement: No evidence of unmet spiritual need Values - Control: No evidence of unmet spiritual need Psycho-Social Identity: No evidence of unmet spiritual need SDAT Beginning of Visit Average Score: 0.2 Spiritual Distress Assessment at end of visit Meaning - Overall Life Balance: Some evidence of unmet spiritual need Transcendence: No evidence of unmet spiritual need Values - Acknowledgement: No evidence of unmet spiritual need Values - Control: No evidence of unmet spiritual need Psycho-Social Identity: No evidence of unmet spiritual need SDAT End of Visit Average Score: 0.2 Spiritual Assessment/Distress Spiritual Care Assessment: Assessment: [place], was awake, alert, lying down in the bed resting at the time of visit. Voiced feeling much better compared to time of admission. Voiced being well care for by caregiver and well supported by his brother. Hopeful thing continue to go well. Shayla hindu is Jewish, expressed desire to receive sacrament of anointing of the sick, prayed for good health. Thankful for the visit. Intervention: NE Spiritual Care Interventions : provided support, explored hope, listened empathically, and provided prayer Outcomes: expressed gratitude and expressed peace Plan of Care: Visit as needed *Reference: Spiritual Distress Assessment Tool: The SDAT is a clinical tool used by chaplains to identify unmet spiritual and emotional needs that can impact Goals of Care in the following categories: Spiritual Distress Assessment Legend Spiritual Needs Related Questions Meaning Are you having difficulties coping with what is happening to your now? Does your hospitalization have any repercussions on the way you live usually? Transcendence Do you have a particular hindu, shayla, or spirituality? Is your hindu/spirituality/shayla challenged by what is happening to you now? Values Do you think that the health professionals caring for you know you well enough? Do you feel that you are participating in the decisions made about your care? Psycho-Social Identity Do you have any worries or difficulties regarding your family or other persons close to you? Do you feel lonely? Do you have links to your shayla community? SCALE 0= no evidence of unmet spiritual needs 1= some evidence of unmet spiritual needs 2= substantial evidence of unmet spiritual needs 3= evidence of severe unmet spiritual needs * Rafita Contreras MD - 05/01/2025 5:13 PM EST [facility] 04/23/2025 1960 64 y.o. [id number] Rafita Contreras, * INTERVAL HISTORY: No events overnight PAST MEDICAL HISTORY:Hypertension, CKD stage IV, BPH, history of lower extremity cellulitis, history of DVT of the lower extremity x 2, chronic systolic heart failure, severe mitral regurgitation, anemia of chronic disease, history of alcohol abuse, noncompliance. ED TRIAGE REPORT: He was inpatient here for urinary retention due to BPH but left AMA today because he wanted chap stick and some inhaler and couldn't get any. He has checked back in to continue histreatment. He states that he was getting catheterized every 6 hours. He states that he doesn't feellike his bladder is full. A bladder scan was just done and he has greater than 499 currently. He isrefusing to be straight cathed. ASSESSMENT/PLAN: 63-year-old male with a past medical history as above who presented to the hospital secondary to obstructive uropathy with bilateral hydronephrosis, patient was initially seen in theED and left AGAINST MEDICAL ADVICE but returned soon after due to persistent retention. # CKD stage IV. Patient has advanced CKD presumably due to chronic obstruction, patient continues to refuse Dill catheter, has a history of BPH for which urology has seen the patient, currently he has been compliant with self- catheterization 4 times a day, patient has been extensively counseled about importance of compliance with this approach. Renal function remains close to baseline no clear evidence of BALWINDER. Continue to monitor closely given ongoing diuresis for CHF. Continue diuretics, tolerating well. # Complicated UTI. Patient has evidence of acute cystitis, culture showing ESBL E. coli, ceftriaxone has been discontinued, start renally adjusted meropenem, discussed with ID, needs 7 days of carbapenem, given poor renal function and mild QTc prolongation not a candidate for other therapies. He will and his treatment on 05/02/2025 # Obstructive uropathy secondary to BPH, he has bilateral hydronephrosis, patient continues to refuse Dill catheter, he was seen by urology, he will follow-up with them as an outpatient, recommendedcontinue straight cath 4 times a day, he continues to refuse Dill. # Acute on chronic congestive heart failure with severe systolic dysfunction. Patient presented with evidence of volume overload, adequate diuresis, weight coming down, . Limited options for guideline directed medical therapy, volume status has improved and he has no signs of pulmonary congestion, started low- dose beta-patrick. Peripheral edema improving # Right lower extremity DVT. Patient was on Eliquis for recurrent DVT, patient has evidence of right thigh hematoma and question of bleeding in the left kidney, patient has refused IVC filter. Patient is at high risk for venous thrombolic event, he refuses to consider workup for PE, encourage ambulation, patient has been made fully aware of the risk of catastrophic thromboembolic phenomena. # Thigh hematoma, stable, H&H without significant change. No signs of expansion. # Dyspnea. The patient reported an episode of dyspnea at rest on 04/27/25, he denies any chest pain or palpitations, he has some intermittent cough, no acute changes, he stated this shortness of breath has been going on and off intermittently, at that time symptoms worsened and he demanded to get some supplemental oxygen for comfort despite having normal O2 saturation on room air, despite nasal cannula he continued to have shortness of breath and requested a mask, he was provided a shovel mask by respiratory therapy and he felt better, the episode lasted about 2 or 3 hours. Resolved without intervention. EKG showed sinus tachycardia with PVCs and nonspecific ST-T wave changes, chest x-ray abe ws some nonspecific patchy opacities in the bases and possibly a small pleural effusion, no significant changes when compared to prior study. The patient was made aware of the risk of PE, he is not on anticoagulation, he has documented lower extremity DVT of his right popliteal and has multiple comorbidities putting him at risk for venous thromboembolism. He has been offered IVC filter that he declined. His anticoagulation was discontinued because of suspected left renal bleed and left thigh hematoma, the patient states he would not take anticoagulation anyway. He is confident that his symptoms are not associated to venous thromboembolism, the patient was offered VQ scan that he declined. .His symptoms after he had a shovel mask placed by respiratory therapy are resolved, patient insist that he does not want any further workup to rule out PE. No new symptoms after initial event resolved. # Goals of care discussion. During this admission, given the multiple refusal to interventions and his hesitancy to consider renal replacement therapy should renal function worsened as well as refusing chronic indwelling Dill catheter I offer him to discuss goals of care, he is not interested in changing his CODE STATUS, he continues to be a full code, patient is hopeful that his medical issues will eventually improve, he does not want to discuss palliative approach or hospice services at thistime. He states his healthcare proxy his brother Michel who is currently going through stressful lifeevents as he recently lost his house in a fire and his also recently . He does not want him to be contacted and did not provide contact information. Disposition: Need to complete 7 days of IV antibiotics. RESULTS: CBC. Results from last 7 days Lab Units 05/01/25 0711 04/30/25 0704 04/29/25 0718 WBC AUTO K/mcL 9.5 8.3 11.1* HEMOGLOBIN g/dL 10.7* 9.8* 11.0* HEMATOCRIT % 34.7* 30.2* 35.0* MCV FL 82.4 80.7 82.4 PLATELETS K/mcL 301 271 337 LYMPHS PCT AUTO % 20.2 20.3 18.9 MONO PCT AUTO % 12.9 12.0 11.6 EOS PCT AUTO % 1.6 0.8 0.6 Coag Results from last 7 days Lab Units 04/26/25 0649 INR 1.4 Anti-Xa Hematology No lab exists for component: LACTATEDEHYD BMP Results from last 7 days Lab Units 05/01/25 0711 04/30/25 0704 04/29/25 0718 SODIUM mmol/L 134 135 136 POTASSIUM mmol/L 4.6 4.2 4.4 CHLORIDE mmol/L 102 102 101 CO2 mmol/L 18* 19* 21 ANION GAP 14* 14* 14* BUN mg/dL 95* 92* 92* CREATININE mg/dL 3.47* 3.35* 3.68* CALCIUM mg/dL 8.3* 7.9* 8.2* MAGNESIUM mg/dL 2.0 1.8* 1.8* PHOSPHORUS mg/dL 6.1* 5.9* 5.9* Cardiac LFT/other Results from last 7 days Lab Units 04/25/25 0707 ALT unit/L 63* AST unit/L 99* ALK PHOS unit/L 327* BILIRUBIN TOTAL mg/dL 0.6 TOTAL PROTEIN g/dL 5.8* ALBUMIN g/dL 3.1* Metabolic No lab exists for component: FREET3 , SEDRATEESR , CRPHIGHLYSEN , LDLCHOL Glucose. Results from last 7 days Lab Units 05/01/25 0711 04/30/25 0704 04/29/25 0718 04/28/25 0557 04/27/25 0644 04/26/25 0649 04/25/25 0707 GLUCOSE mg/dL 92 89 94 89 89 95 104* Scheduled Medications PRN Medications IV Medications bumetanide, 1 mg, Daily carvediloL, 3.125 mg, BID with meals finasteride, 5 mg, Daily meropenem, 500 mg, q12h polyetheylene glycol, 17 g, Nightly senna, 2 tablet, BID sodium chloride, 10 mL, BID tamsulosin, 0.8 mg, Nightly acetaminophen, 650 mg, q6h PRN LORazepam, 0.5 mg, q12h PRN naloxone, 0.04 mg, PRN ondansetron (ZOFRAN-ODT) disintegrating tablet, 4 mg, q8h PRN Or ondansetron, 4 mg, q8h PRN sodium chloride, 10 mL, PRN SUBJECTIVE : Shortness of breath with activity which is his baseline, no other complaints, he reports he has ambulated in the room. Having regular bowel movements. No bleeding. OBJECTIVE: Vitals: 04/30/25 1930 05/01/25 0258 05/01/25 0800 05/01/25 1435 BP: (!) 121/94 100/83 106/84 (!) 110/91 BP Location: Patient Position: Pulse: 89 90 84 Resp: 16 16 19 Temp: 36.8 ??C (98.3 ??F) 36.5 ??C (97.7 ??F) 36.4 ??C (97.5 ??F) TempSrc: SpO2: 100% 100% 100% 98% Weight: Height: Temp (24hrs), Av.6 ??C (97.8 ??F), Min:36.4 ??C (97.5 ??F), Max:36.8 ??C (98.3 ??F) Intake/Output Summary (Last 24 hours) at 05/01/2025 1713 Last data filed at 05/01/2025 1633 Gross per 24 hour Intake 883 ml Output 1625 ml Net -742 ml Wt Readings from Last 1 Encounters: 04/30/25 0600 85.6 kg (188 lb 12.8 oz) 04/30/25 0500 85.6 kg (188 lb 12.8 oz) 04/29/25 0500 84.2 kg (185 lb 9.6 oz) 04/27/25 0600 82.9 kg (182 lb 12.8 oz) 04/26/25 0600 84.5 kg (186 lb 3.2 oz) 04/25/25 0600 85.7 kg (189 lb) 04/24/25 0600 86.8 kg (191 lb 6.4 oz) 04/23/25 1842 86.6 kg (191 lb) PHYSICAL EXAM: Gen: Alert,, anxious. Not in acute distress CV -RRR no MGR Lungs -CTAB, good air movement, no increased work of breathing Abd - Soft, non-tender, non-distended Extremities - No LE edema Neuro - AO x3, speech is clear, face is symmetric Imaging: XR Chest 1 View Narrative: PROCEDURE: AP chest radiograph. HISTORY: SOB, pulmonary edema suspected. COMPARISON: 04/15/2025. FINDINGS: Mildly hypoventilatory inspiratory effort. Patchy linear opacities at the bases, left greater than right, more extensive than on the previous study. Slight blunting of the right costophrenic angle, pleural thickening versus a trace pleural effusion. Stable mild cardiac enlargement. Mild degenerative changes of the spine and shoulders. Impression: Patchy opacities at both bases appears slightly more prominent than on the previous study. Trace right pleural effusion or pleural thickening. -------- FINAL REPORT -------- Dictated By: Uche Ham Dictated Date: 04/27/2025 12:51 ET Assigned Physician: Uche Ham Reviewed and Electronically Signed By: Uche Ham Signed Date: 04/27/2025 12:56 ET Workstation ID: [id number] Transcribed By: Self Edit Transcribed Date: 04/27/2025 12:51 ET [x] Code status: Full Code - Default [x] VTE Prophylaxis: Pharmacological contraindicated given hematoma and renal bleed. [x] Lines, tubes, drains: Straight catheterization intermittently Health Care proxy with Phone number: * Jean Claude Ford MD - 05/01/2025 3:43 PM EST Images from the original note were not included. Progress Note CHIEF COMPLAINT F/u CKD SUBJECTIVE Seen and examined MEDICAL HISTORY Medical History[1] MEDICATIONS MEDSSCHEDULED[2] MEDSPRN[3] MEDSCONTINUOUS[4] OBJECTIVE Vital signs in last 24 hours: Visit Vitals BP (!) 110/91 Pulse 84 Temp 36.4 ??C (97.5 ??F) Resp 19 Intake/Output last 24 hours: Intake/Output Summary (Last 24 hours) at 05/01/2025 1543 Last data filed at 05/01/2025 1151 Gross per 24 hour Intake 283 ml Output 1400 ml Net -1117 ml Weights: Admission Weight: Weight: 86.6 kg (191 lb) Wt Readings from Last 3 Encounters: 04/30/25 85.6 kg (188 lb 12.8 oz) 04/23/25 86.7 kg (191 lb 3.2 oz) 04/16/25 83.9 kg (185 lb) Physical Exam: General: No acute distress HEENT: Normocephalic, atraumatic, anicteric Cardiovascular: S1 S2 normal Respiratory: unlabored Gl: soft non-distended Extremities: No cyanosis Neurological: Alert Integumentary: no rash Psych: Calm, cooperative LABS Results from last 7 days Lab Units 05/01/25 0711 04/30/25 0704 04/29/25 0718 WBC AUTO K/mcL 9.5 8.3 11.1* HEMOGLOBIN g/dL 10.7* 9.8* 11.0* HEMATOCRIT % 34.7* 30.2* 35.0* MCV FL 82.4 80.7 82.4 PLATELETS K/mcL 301 271 337 Results from last 7 days Lab Units 05/01/25 0711 04/30/25 0704 04/29/25 0718 CREATININE mg/dL 3.47* 3.35* 3.68* BUN mg/dL 95* 92* 92* SODIUM mmol/L 134 135 136 POTASSIUM mmol/L 4.6 4.2 4.4 CHLORIDE mmol/L 102 102 101 CO2 mmol/L 18* 19* 21 Phosphorus Date Value Ref Range Status 05/01/2025 6.1 (H) 2.5 - 4.5 mg/dL Final 04/30/2025 5.9 (H) 2.5 - 4.5 mg/dL Final 04/29/2025 5.9 (H) 2.5 - 4.5 mg/dL Final No results found for: IRON , TIBC , FERRITIN No results found for: COLORUA , CLARITYUA , SPECGRAVUA , PHUA , PROTUA , GLUCOSEUA , KETONESUA , BILIRUBINUA , BLOODUA , UROBILINOGUA , NITRITEUA IMPRESSION and PLAN CKD 4 Metabolic acidosis Hydronephrosis HFrEF Scr stable CKD due to obstructive uropathy in the setting of outlet obstruction of the urinary bladder secondary to prostatomegaly CT scan of the abdomen had previously showed marked urinary bladder distention with associated severe hydronephrosis and moderate hydroureter Unknown baseline kidney function although suspect chronic obstructive uropathy Back in 2022 he had presented with difficulty passing urine and hematuria Per urology prior note: unwilling to have any testing, catheterization, workup, or discussion Patient refuses Dill and agreeable to straight cath himself Metabolic acidosis due to tubular dysfunction HFrEF with LVEF 28% REC C/w bumetanide C/w tamsulosin Educate patient he will end up on dialysis in the next 6-12 months as he refuses intervention Follow kidney function and electrolytes Jean Claude Ford MD [1] Past Medical History: Diagnosis Date DVT (deep venous thrombosis) ([facility] V24, [facility] V28) Hypertension [2] bumetanide, 1 mg, oral, Daily carvediloL, 3.125 mg, oral, BID with meals finasteride, 5 mg, oral, Daily meropenem, 500 mg, intravenous, q12h polyetheylene glycol, 17 g, oral, Nightly senna, 2 tablet, oral, BID sodium chloride, 10 mL, intravenous, BID tamsulosin, 0.8 mg, oral, Nightly [3] PRN medications: acetaminophen, LORazepam, naloxone, ondansetron (ZOFRAN- ODT) disintegrating tablet OR ondansetron, Insert peripheral IV AND Maintain IV access AND Saline lock IV AND sodium chloride AND sodium chloride [4] * Rafita Contreras MD - 04/30/2025 6:10 PM EST [facility] 04/23/2025 1960 64 y.o. [id number] Rafita Contreras, * INTERVAL HISTORY: No events overnight PAST MEDICAL HISTORY:Hypertension, CKD stage IV, BPH, history of lower extremity cellulitis, history of DVT of the lower extremity x 2, chronic systolic heart failure, severe mitral regurgitation, anemia of chronic disease, history of alcohol abuse, noncompliance. ED TRIAGE REPORT: He was inpatient here for urinary retention due to BPH but left AMA today because he wanted chap stick and some inhaler and couldn't get any. He has checked back in to continue histreatment. He states that he was getting catheterized every 6 hours. He states that he doesn't feellike his bladder is full. A bladder scan was just done and he has greater than 499 currently. He isrefusing to be straight cathed. ASSESSMENT/PLAN: 63-year-old male with a past medical history as above who presented to the hospital secondary to obstructive uropathy with bilateral hydronephrosis, patient was initially seen in theED and left AGAINST MEDICAL ADVICE but returned soon after due to persistent retention. # CKD stage IV. Patient has advanced CKD presumably due to chronic obstruction, patient continues to refuse Dill catheter, has a history of BPH for which urology has seen the patient, currently he has been compliant with self- catheterization 4 times a day, patient has been extensively counseled about importance of compliance with this approach. Renal function remains close to baseline no clear evidence of BALWINDER. Continue to monitor closely given ongoing diuresis for CHF. I&O has been negative consistently and there is concern about postobstructive diuresis given regular straight catheterization. Nephrology hydrated. Last 24-hour holding Bumex that he tolerated well. Will hold diuretic today and resume tomorrow 05/01/2025. Anion gap metabolic acidosis has improved without intervention, continue to monitor. # Complicated UTI. Patient has evidence of acute cystitis, culture showing ESBL E. coli, ceftriaxone has been discontinued, start renally adjusted meropenem, discussed with ID, needs 7 days of carbapenem, given poor renal function and mild QTc prolongation not a candidate for other therapies. He will and his treatment on 05/02/2025 # Obstructive uropathy secondary to BPH, he has bilateral hydronephrosis, patient continues to refuse Dill catheter, he was seen by urology, he will follow-up with them as an outpatient, recommendedcontinue straight cath 4 times a day, he continues to refuse Dill. # Acute on chronic congestive heart failure with severe systolic dysfunction. Patient presented with evidence of volume overload, adequate diuresis, weight coming down, . Limited options for guideline directed medical therapy, volume status has improved and he has no signs of pulmonary congestion, will start low- dose beta-patrick. # Right lower extremity DVT. Patient was on Eliquis for recurrent DVT, patient has evidence of right thigh hematoma and question of bleeding in the left kidney, patient has refused IVC filter. Patient is at high risk for venous thrombolic event, he refuses to consider workup for PE, encourage ambulation, patient has been made fully aware of the risk of catastrophic thromboembolic phenomena. # Right thigh hematoma, stable, H&H without significant change. No signs of expansion. # Dyspnea. The patient reported an episode of dyspnea at rest on 04/27/25, he denies any chest pain or palpitations, he has some intermittent cough, no acute changes, he stated this shortness of breath has been going on and off intermittently, at that time symptoms worsened and he demanded to get some supplemental oxygen for comfort despite having normal O2 saturation on room air, despite nasal cannula he continued to have shortness of breath and requested a mask, he was provided a shovel mask by respiratory therapy and he felt better, the episode lasted about 2 or 3 hours. Resolved without intervention. EKG showed sinus tachycardia with PVCs and nonspecific ST-T wave changes, chest x-ray abe ws some nonspecific patchy opacities in the bases and possibly a small pleural effusion, no significant changes when compared to prior study. The patient was made aware of the risk of PE, he is not on anticoagulation, he has documented lower extremity DVT of his right popliteal and has multiple comorbidities putting him at risk for venous thromboembolism. He has been offered IVC filter that he declined. His anticoagulation was discontinued because of suspected left renal bleed and left thigh hematoma, the patient states he would not take anticoagulation anyway. He is confident that his symptoms are not associated to venous thromboembolism, the patient was offered VQ scan that he declined. .His symptoms after he had a shovel mask placed by respiratory therapy are resolved, patient insist that he does not want any further workup to rule out PE. No new symptoms after initial event resolved. # Goals of care discussion. During this admission, given the multiple refusal to interventions and his hesitancy to consider renal replacement therapy should renal function worsened as well as refusing chronic indwelling Dill catheter I offer him to discuss goals of care, he is not interested in changing his CODE STATUS, he continues to be a full code, patient is hopeful that his medical issues will eventually improve, he does not want to discuss palliative approach or hospice services at thistime. He states his healthcare proxy his brother Michel who is currently going through stressful lifeevents as he recently lost his house in a fire and his also recently . He does not want him to be contacted and did not provide contact information. Disposition: Need to complete 7 days of IV antibiotics. RESULTS: CBC. Results from last 7 days Lab Units 04/30/25 0704 04/29/25 0718 04/28/25 0600 WBC AUTO K/mcL 8.3 11.1* 9.9 HEMOGLOBIN g/dL 9.8* 11.0* 10.6* HEMATOCRIT % 30.2* 35.0* 32.7* MCV FL 80.7 82.4 81.5 PLATELETS K/mcL 271 337 299 LYMPHS PCT AUTO % 20.3 18.9 17.7 MONO PCT AUTO % 12.0 11.6 12.2 EOS PCT AUTO % 0.8 0.6 0.8 Coag Results from last 7 days Lab Units 04/26/25 0649 INR 1.4 Anti-Xa Hematology Results from last 7 days Lab Units 04/24/25 0647 VITAMIN B 12 pcg/mL 1,231* BMP Results from last 7 days Lab Units 04/30/25 0704 04/29/25 0718 04/28/25 0557 04/27/25 0644 SODIUM mmol/L 135 136 137 138 POTASSIUM mmol/L 4.2 4.4 4.2 4.1 CHLORIDE mmol/L 102 101 103 103 CO2 mmol/L 19* 21 20* 20* ANION GAP 14* 14* 14* 15* BUN mg/dL 92* 92* 87* 83* CREATININE mg/dL 3.35* 3.68* 3.71* 3.58* CALCIUM mg/dL 7.9* 8.2* 8.1* 8.3* MAGNESIUM mg/dL 1.8* 1.8* -- 1.8* PHOSPHORUS mg/dL 5.9* 5.9* -- 5.4* Cardiac LFT/other Results from last 7 days Lab Units 04/25/25 0707 ALT unit/L 63* AST unit/L 99* ALK PHOS unit/L 327* BILIRUBIN TOTAL mg/dL 0.6 TOTAL PROTEIN g/dL 5.8* ALBUMIN g/dL 3.1* Metabolic Results from last 7 days Lab Units 04/24/25 0647 CRP mg/dL 3.33* Glucose. Results from last 7 days Lab Units 04/30/25 0704 04/29/25 0718 04/28/25 0557 04/27/25 0644 04/26/25 0649 04/25/25 0707 04/24/25 0647 GLUCOSE mg/dL 89 94 89 89 95 104* 117* Scheduled Medications PRN Medications IV Medications [START ON 05/01/2025] bumetanide, 1 mg, Daily finasteride, 5 mg, Daily magnesium oxide, 400 mg, BID meropenem, 500 mg, q12h polyetheylene glycol, 17 g, Nightly senna, 2 tablet, BID sodium chloride, 10 mL, BID tamsulosin, 0.8 mg, Nightly acetaminophen, 650 mg, q6h PRN LORazepam, 0.5 mg, q12h PRN naloxone, 0.04 mg, PRN ondansetron (ZOFRAN-ODT) disintegrating tablet, 4 mg, q8h PRN Or ondansetron, 4 mg, q8h PRN sodium chloride, 10 mL, PRN SUBJECTIVE : Shortness of breath with activity which is his baseline, no other complaints, he reports he has ambulated in the room. Having regular bowel movements. No bleeding. OBJECTIVE: Vitals: 04/30/25 0500 04/30/25 0600 04/30/25 0821 04/30/25 1535 BP: (!) 123/97 (!) 115/99 BP Location: Right arm Right arm Patient Position: Lying Lying Pulse: 94 101 Resp: 16 17 Temp: 36.3 ??C (97.3 ??F) 36.1 ??C (97 ??F) TempSrc: Temporal Temporal SpO2: 97% 100% Weight: 85.6 kg (188 lb 12.8 oz) 85.6 kg (188 lb 12.8 oz) Height: Temp (24hrs), Av.3 ??C (97.4 ??F), Min:36.1 ??C (97 ??F), Max:36.6 ??C (97.8 ??F) Intake/Output Summary (Last 24 hours) at 04/30/2025 1810 Last data filed at 04/30/2025 1253 Gross per 24 hour Intake 1678.33 ml Output 850 ml Net 828.33 ml Wt Readings from Last 1 Encounters: 04/30/25 0600 85.6 kg (188 lb 12.8 oz) 04/30/25 0500 85.6 kg (188 lb 12.8 oz) 04/29/25 0500 84.2 kg (185 lb 9.6 oz) 04/27/25 06 82.9 kg (182 lb 12.8 oz) 04/26/25 06 84.5 kg (186 lb 3.2 oz) 04/25/25 06 85.7 kg (189 lb) 04/24/25 06 86.8 kg (191 lb 6.4 oz) 04/23/25 1842 86.6 kg (191 lb) PHYSICAL EXAM: Gen: Alert,, anxious. Not in acute distress CV -RRR no MGR Lungs -CTAB, good air movement, no increased work of breathing Abd - Soft, non-tender, non-distended Extremities - No LE edema Neuro - AO x3, speech is clear, face is symmetric Imaging: XR Chest 1 View Narrative: PROCEDURE: AP chest radiograph. HISTORY: SOB, pulmonary edema suspected. COMPARISON: 04/15/2025. FINDINGS: Mildly hypoventilatory inspiratory effort. Patchy linear opacities at the bases, left greater than right, more extensive than on the previous study. Slight blunting of the right costophrenic angle, pleural thickening versus a trace pleural effusion. Stable mild cardiac enlargement. Mild degenerative changes of the spine and shoulders. Impression: Patchy opacities at both bases appears slightly more prominent than on the previous study. Trace right pleural effusion or pleural thickening. -------- FINAL REPORT -------- Dictated By: Uche Ham Dictated Date: 04/27/2025 12:51 ET Assigned Physician: Uche Ham Reviewed and Electronically Signed By: Uche Ham Signed Date: 04/27/2025 12:56 ET Workstation ID: [id number] Transcribed By: Self Edit Transcribed Date: 04/27/2025 12:51 ET [x] Code status: Full Code - Default [x] VTE Prophylaxis: Pharmacological contraindicated given hematoma and renal bleed. [x] Lines, tubes, drains: Straight catheterization intermittently Health Care proxy with Phone number: * Liana Willard RN - 04/30/2025 4:54 PM EST Goals: Problem: Cognitive: Geraldine Mcdaniel Fall Risk Goal: Medications 04/30/20251653 by Liana Fajardo RN Outcome: Progressing Identify possible barriers to meeting goals/advancing plan of care: Per ID pt to be on IV meropenemuntil 05/02/25 and pending SNF placement Stability of the patient: Moderately Stable - Low risk of patient condition declining or worsening End of Shift Summary: patient during day shift had SOB, anxiousness and was hyperventilating, INDUSTRIAL TRUCK MECHANIC evaluated patient and noted as patient has no history of COPD/ Asthma/wheezing, no respiratory tx provided, patient was educated to do purse lip breathing as tolerated by INDUSTRIAL TRUCK MECHANIC for anxiousness. Patient agrees and understands as discussed and performed as educated during episode of panic mode.Patient refused prn lorazepam during day shift. * Louisa Chappell, OT - 04/30/2025 2:28 PM EST [facility] Occupational Therapy Evaluation DATE: Wednesday April 30, 2025 TIME IN: 1000 TIME OUT: 1030 Pt: [facility] ROOM: [address] [place], [place] [address] Discharge Recommendation: longterm facility vs FOH or respite care Equipment Recommendation: none Staff recommendations for safe patient handling: Supervision Modified Eduardo Scale Score: 0=No symptoms Assessment: Patient is a 64 y.o. male presenting for OT evaluation following admission due to obstructive uropathy. During today's skilled acute care OT evaluation, pt demonstrated the following deficits: pt is able to perform bed mobility indep for supine to EOB and sit to supine. Pt able to dresshimself and perform oral hygiene while standing at the sink. Pt has normal AROM of BUE and adequatestrength throughout. Pt currently requires no assistance for ADLs and supervision level for functional transfers/mobility. OT Time Calculation OT Start Time: 1000 OT Stop Time: 1030 OT Time Calculation (min): 30 min History of Present Illness: Patient is a 64 y.o. male admitted to [facility] on 04/23/2025. Occupational Therapy evaluation and treatment ordered to assess ADL independence, safety, and functional mobility for discharge planning. Problem List[1] Medical History[2] Surgical History[3] Subjective I am homeless. Patient agreeable to engage in OT evaluation and treatment. Objective Patient was identified by name and x2. Hearing: Intact Speech: Intact Vision: Vision: Intact - 04/30/25 1000 OT Last Visit OT Received On 04/30/25 General Family/Caregiver Present No OT Time Calculation OT Start Time 1000 OT Stop Time 1030 OT Time Calculation (min) 30 min Precautions Medical Precautions Fall Risk Safety Interventions Call agrawal within reach;Side rails up x2;ID band on RUE Weight Bearing Status Full LUE Weight Bearing Status Full RLE Weight Bearing Status Full LLE Weight Bearing Status Full Vital Signs Patient Identification Yes Oxygen Therapy Oxygen Therapy None (Room air) Pain Assessment Pain Assessment No/denies pain Pain Score 0 - No pain Home Living Type of Home Homeless Home Adaptive Equipment None Prior Function Level of [place] Independent with mobility and functional transfers Ambulation Status Community ambulator Prior Device Use No prior device use Which is your dominant hand? Right ADL/IADL History Dressing Independent Eating Independent Toileting Independent (uses open public restrooms) ADL Eating Assistance Independent Grooming Assistance Independent Oral Hygiene Assistance Independent Bathing Assistance Modified independent (sink bathing) UE Dressing Assistance Independent LE Dressing Assistance Modified independent Footwear Assistance Modified independent Toileting Assistance Independent Bed Mobility Sitting to Lying Assistance Supervision Lying to Sitting Assistance Supervision Functional Transfers Sit to Stand Assistance Standby assistance Toilet Transfer Assistance Supervision Functional Mobility Walking Assistance Standby assistance Device No device Distance Ambulated (ft) 20 Activity Tolerance Endurance Endurance does not limit participation in activity Static Sitting Balance Static Sitting-Level of Assistance Independent Static Standing Balance Static Standing-Level of Assistance Supervision Cognition Orientation Level Oriented X4 Following Commands Follows multistep commands with increased time;Follows multistep commands with repetition Safety Judgment Decreased awareness of need for assistance;Decreased awareness of need for safety Proprioception Proprioception No apparent deficits Sensation Light Touch No apparent deficits Hand Function Gross Grasp Functional Hand Function Description gross grasp strong bilaterally Coordination Coordination Functional RUE Assessment RUE Assessment Within Functional Limits RUE Assessment Comments grossly 4+/5 throughout muscle groups LUE Assessment LUE Assessment Within Functional Limits LUE Assessment Comments grossly 4+/5 throughout all muscle groups OT Assessment OT Assessment Results Decreased ADL status Prognosis Good Evaluation/Treatment Tolerance Patient tolerated treatment well Plan OT Plan No skilled OT OT - Evaluation Status Complete OT Discharge Recommendations (FOH/Medical Respite) OT Evaluation Time Entry OT Evaluation (Low) Time Entry 30 ADDITIONAL COMMENTS: Chart reviewed. RN clears pt for session. Pt agrees to participate and received supine with HOB elevated and tray table and call light within reach. All lines in place. No family or guests present during session. Medical precautions observed appropriately. Initiated education on Role of OT, Transfer Safety, ADL Techniques and Safety , and Discharge Recommendation. Pt verbalized understanding. EXIT STATUS: Session ended with patient supine with HOB elevated, tray table and call light within reach, and RNmade aware. Needs in reach. RN made aware. OT Goals Pt seen for OT eval and treatment session to assess ADL and functional status. See above for details of evaluation/treatment session. OT Assessment OT Assessment Results: Decreased ADL status Prognosis: Good Evaluation/Treatment Tolerance: Patient tolerated treatment well Plan OT Plan: No skilled OT OT - Evaluation Status: Complete OT Discharge Recommendations: (FOH/Medical Respite) Encounter Problems Encounter Problems (Active) There are no active problems. Encounter Problems (Resolved) There are no resolved problems. Education Documentation No documentation found. Education Comments No comments found. Louisa Chappell OT [1] Patient Active Problem List Diagnosis ARF (acute renal failure) ([facility] V24) Left leg pain Urinary retention Obstructive uropathy [2] Past Medical History: Diagnosis Date DVT (deep venous thrombosis) ([facility] V24, [facility] V28) Hypertension [3] History reviewed. No pertinent surgical history. * Abraham May MD - 04/30/2025 1:58 PM EST Images from the original note were not included. Progress Note CHIEF COMPLAINT F/u SUBJECTIVE Patient is sleepy but arousable Good urine output with straight cath-1.4 L Patient on isolation MEDICAL HISTORY Medical History[1] MEDICATIONS MEDSSCHEDULED[2] MEDSPRN[3] MEDSCONTINUOUS[4] OBJECTIVE Vital signs in last 24 hours: Visit Vitals BP (!) 123/97 (BP Location: Right arm, Patient Position: Lying) Pulse 94 Temp 36.3 ??C (97.3 ??F) (Temporal) Resp 16 Intake/Output last 24 hours: Intake/Output Summary (Last 24 hours) at 04/30/2025 1358 Last data filed at 04/30/2025 1253 Gross per 24 hour Intake 2246.66 ml Output 850 ml Net 1396.66 ml Weights: Admission Weight: Weight: 86.6 kg (191 lb) Wt Readings from Last 3 Encounters: 04/30/25 85.6 kg (188 lb 12.8 oz) 04/23/25 86.7 kg (191 lb 3.2 oz) 04/16/25 83.9 kg (185 lb) Physical Exam: General: No acute distress HEENT: Normocephalic, atraumatic, anicteric Cardiovascular: S1 S2 normal Respiratory: unlabored Gl: soft non-distended Extremities: No cyanosis Neurological: Alert Integumentary: no rash Psych: Calm, cooperative LABS Results from last 7 days Lab Units 04/30/25 0704 04/29/25 0718 04/28/25 0600 WBC AUTO K/mcL 8.3 11.1* 9.9 HEMOGLOBIN g/dL 9.8* 11.0* 10.6* HEMATOCRIT % 30.2* 35.0* 32.7* MCV FL 80.7 82.4 81.5 PLATELETS K/mcL 271 337 299 Results from last 7 days Lab Units 04/30/25 0704 04/29/25 0718 04/28/25 0557 CREATININE mg/dL 3.35* 3.68* 3.71* BUN mg/dL 92* 92* 87* SODIUM mmol/L 135 136 137 POTASSIUM mmol/L 4.2 4.4 4.2 CHLORIDE mmol/L 102 101 103 CO2 mmol/L 19* 21 20* Phosphorus Date Value Ref Range Status 04/30/2025 5.9 (H) 2.5 - 4.5 mg/dL Final 04/29/2025 5.9 (H) 2.5 - 4.5 mg/dL Final 04/27/2025 5.4 (H) 2.5 - 4.5 mg/dL Final No results found for: IRON , TIBC , FERRITIN No results found for: COLORUA , CLARITYUA , SPECGRAVUA , PHUA , PROTUA , GLUCOSEUA , KETONESUA , BILIRUBINUA , BLOODUA , UROBILINOGUA , NITRITEUA IMPRESSION and PLAN 64 year old male with history of hypertension, 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 CT without contrast :KIDNEYS/URETERS: Mild bilateral hydronephrosis and hydroureter. No renal or ureteral calculi. Hyperdensity in the lower pole calyces and left renal pelvis, new from prior. 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 His baseline creatinine is about 3-4 He was seen in [facility] early Mar for similar issue: heart failure exacerbation and urinary retention Recs: Creatinine currently around 3.3 baseline about 3-4) Was on IV Lasix then p.o. Bumex but it is on hold as he has postobstructive diuresis Will start p.o. Bumex 1 mg daily in a.m. ON meds for BPH Patient refuse dill and managed to straight cath himself today Earlier this week patient was informed that he has stage IV CKD at baseline and if he does not haveany definitive correction for his bladder outlet obstruction and if he does not perform straight cath every 6 hourly as recommended his creatinine will continue to worsen and he might end up on renalreplacement therapy. He understands the concept but still does not want to have any intervention done other than straight cath I discussed with him again on Saturday about renal replacement therapy that he will end up on at some point down the road> patient states that he does not want to go on dialysis PICC line can be placed in the dominant arm-discussed with the medical team and IV team Daily weight Monitor output Abraham May MD [1] Past Medical History: Diagnosis Date DVT (deep venous thrombosis) ([facility] V24, [facility] V28) Hypertension [2] [Held by provider] bumetanide, 1 mg, oral, Daily finasteride, 5 mg, oral, Daily magnesium oxide, 400 mg, oral, BID meropenem, 500 mg, intravenous, q12h polyetheylene glycol, 17 g, oral, Nightly senna, 2 tablet, oral, BID sodium chloride, 10 mL, intravenous, BID tamsulosin, 0.8 mg, oral, Nightly [3] PRN medications: acetaminophen, LORazepam, naloxone, ondansetron (ZOFRAN- ODT) disintegrating tablet OR ondansetron, Insert peripheral IV AND Maintain IV access AND Saline lock IV AND sodium chloride AND sodium chloride [4] * Chiara Syed LCSW - 04/30/2025 12:58 PM EST Pt has a bed offer from [facility] will need elder screen done sw will fax screen to [facility] will start auth sw following * Liana Willard RN - 04/29/2025 7:17 PM EST Goals: Problem: Sensory: Acute Pain Goal: Pain level will improve or be tolerable 04/29/2025 1917 by Liana Fajardo RN Outcome: Progressing 04/29/2025 0917 by Liana Fajardo RN Outcome: Progressing Identify possible barriers to meeting goals/advancing plan of care: abnormal Kidney function and patient will end Ab IV meropenem per ID on 05/02/25 and not candidate for alt med for Tx plan. Stability of the patient: Moderately Stable - Low risk of patient condition declining or worsening End of Shift Summary: patient was seen today by dr May and was ordered cont IVF LR 100 ml/hr and to be ended at 04/30/25 around 0730am. Patient BS was 475 and refused self straight cath around 1830 and states will do later with night nurse. Patient is forgetful sometime. Patient had dyspnea during day shift, VS and O 2 Sat WNL as documented in Flowsheet, ROSS aware, Ativan was ordered and given- see MAR. Patient also had PT eval today. Patient had multiple BM with unmanned equipment operator nurse. Patient is on 1500 FR. Patient IV line was leaking so needs IV line- RN at night informed. * Rafita Contreras MD - 04/29/2025 4:42 PM EST [facility] 04/23/2025 1960 64 y.o. [id number] Rafita Contreras, * INTERVAL HISTORY: No events overnight PAST MEDICAL HISTORY:Hypertension, CKD stage IV, BPH, history of lower extremity cellulitis, history of DVT of the lower extremity x 2, chronic systolic heart failure, severe mitral regurgitation, anemia of chronic disease, history of alcohol abuse, noncompliance. ED TRIAGE REPORT: He was inpatient here for urinary retention due to BPH but left AMA today because he wanted chap stick and some inhaler and couldn't get any. He has checked back in to continue histreatment. He states that he was getting catheterized every 6 hours. He states that he doesn't feellike his bladder is full. A bladder scan was just done and he has greater than 499 currently. He isrefusing to be straight cathed. ASSESSMENT/PLAN: 63-year-old male with a past medical history as above who presented to the hospital secondary to obstructive uropathy with bilateral hydronephrosis, patient was initially seen in theED and left AGAINST MEDICAL ADVICE but returned soon after due to persistent retention. # CKD stage IV. Patient has advanced CKD presumably due to chronic obstruction, patient continues to refuse Dill catheter, has a history of BPH for which urology has seen the patient, currently he has been compliant with self- catheterization 4 times a day, patient has been extensively counseled about importance of compliance with this approach. Renal function remains close to baseline no clear evidence of BALWINDER. Continue to monitor closely given ongoing diuresis for CHF. YARA has been negative consistently and there is concern about postobstructive diuresis given compliance with straight catheterization. Nephrology started hydration for the next 24 hours. Hold Bumex today. Anion gap metabolicacidosis has improved without intervention, continue to monitor. # Complicated UTI. Patient has evidence of acute cystitis, culture showing ESBL E. coli, ceftriaxone has been discontinued, start renally adjusted meropenem, discussed with ID, needs 7 days of carbapenem, given poor renal function and mild QTc prolongation not a candidate for other therapies. He will and his treatment on 05/02/2025 # Obstructive uropathy secondary to BPH, he has bilateral hydronephrosis, patient continues to refuse Dill catheter, he was seen by urology, he will follow-up with them as an outpatient, recommendedcontinue straight cath 4 times a day, he continues to refuse Dill. # Acute on chronic congestive heart failure with severe systolic dysfunction. Patient presented with evidence of volume overload, adequate diuresis, weight coming down, I&O's -5.4L. Limited options for guideline directed medical therapy, once he is euvolemic can start low-dose beta-patrick # Right lower extremity DVT. Patient was on Eliquis for recurrent DVT, patient has evidence of right thigh hematoma and question of bleeding in the left kidney, patient has refused IVC filter. Patient is at high risk for venous thrombolic event, he refuses to consider workup for PE, encourage ambulation, patient has been made fully aware of the risk of catastrophic thromboembolic phenomena. # Right thigh hematoma, stable, H&H without significant change. No signs of expansion. # Dyspnea. The patient reported an episode of dyspnea at rest on 04/27/25, he denies any chest pain or palpitations, he has some intermittent cough, no acute changes, he stated this shortness of breath has been going on and off intermittently, at that time symptoms worsened and he demanded to get some supplemental oxygen for comfort despite having normal O2 saturation on room air, despite nasal cannula he continued to have shortness of breath and requested a mask, he was provided a shovel mask by respiratory therapy and he felt better, the episode lasted about 2 or 3 hours. Resolved without intervention. EKG showed sinus tachycardia with PVCs and nonspecific ST-T wave changes, chest x-ray abe ws some nonspecific patchy opacities in the bases and possibly a small pleural effusion, no significant changes when compared to prior study. The patient was made aware of the risk of PE, he is not on anticoagulation, he has documented lower extremity DVT of his right popliteal and has multiple comorbidities putting him at risk for venous thromboembolism. He has been offered IVC filter that he declined. His anticoagulation was discontinued because of suspected left renal bleed and left thigh hematoma, the patient states he would not take anticoagulation anyway. He is confident that his symptoms are not associated to venous thromboembolism, the patient was offered VQ scan that he declined. .His symptoms after he had a shovel mask placed by respiratory therapy are resolved, patient insist that he does not want any further workup to rule out PE. Today the patient is feeling better, confirmed that he does not want to have more workup. # Goals of care discussion. During this admission, given the multiple refusal to interventions and his hesitancy to consider renal replacement therapy should renal function worsened as well as refusing chronic indwelling Dill catheter I offer him to discuss goals of care, he is not interested in changing his CODE STATUS, he continues to be a full code, patient is hopeful that his medical issues will eventually improve, he does not want to discuss palliative approach or hospice services at thistime. He states his healthcare proxy his brother Michel who is currently going through stressful lifeevents as he recently lost his house in a fire and his also recently . He does not want him to be contacted and did not provide contact information. Disposition: Need to complete 7 days of IV antibiotics. RESULTS: CBC. Results from last 7 days Lab Units 04/29/25 0718 04/28/25 0600 04/27/25 0644 WBC AUTO K/mcL 11.1* 9.9 8.9 HEMOGLOBIN g/dL 11.0* 10.6* 10.6* HEMATOCRIT % 35.0* 32.7* 33.6* MCV FL 82.4 81.5 82.2 PLATELETS K/mcL 337 299 326 LYMPHS PCT AUTO % 18.9 17.7 19.8 MONO PCT AUTO % 11.6 12.2 12.2 EOS PCT AUTO % 0.6 0.8 1.5 Coag Results from last 7 days Lab Units 04/26/25 0649 INR 1.4 Anti-Xa Hematology Results from last 7 days Lab Units 04/24/25 0647 VITAMIN B 12 pcg/mL 1,231* BMP Results from last 7 days Lab Units 04/29/25 0718 04/28/25 0557 04/27/25 0644 04/26/25 0649 SODIUM mmol/L 136 137 138 137 POTASSIUM mmol/L 4.4 4.2 4.1 4.3 CHLORIDE mmol/L 101 103 103 104 CO2 mmol/L 21 20* 20* 17* ANION GAP 14* 14* 15* 16* BUN mg/dL 92* 87* 83* 79* CREATININE mg/dL 3.68* 3.71* 3.58* 3.51* CALCIUM mg/dL 8.2* 8.1* 8.3* 8.2* MAGNESIUM mg/dL 1.8* -- 1.8* 1.8* PHOSPHORUS mg/dL 5.9* -- 5.4* 5.3* Cardiac Results from last 7 days Lab Units 04/23/25 0600 BNP pcg/mL 2,137* LFT/other Results from last 7 days Lab Units 04/25/25 0707 ALT unit/L 63* AST unit/L 99* ALK PHOS unit/L 327* BILIRUBIN TOTAL mg/dL 0.6 TOTAL PROTEIN g/dL 5.8* ALBUMIN g/dL 3.1* Metabolic Results from last 7 days Lab Units 04/24/25 0647 CRP mg/dL 3.33* Glucose. Results from last 7 days Lab Units 04/29/25 0718 04/28/25 0557 04/27/25 0644 04/26/25 0649 04/25/25 0707 04/24/25 0647 04/23/25 0600 GLUCOSE mg/dL 94 89 89 95 104* 117* 94 Scheduled Medications PRN Medications IV Medications [Held by provider] bumetanide, 1 mg, Daily finasteride, 5 mg, Daily lactated Ringer's, 100 mL/hr, See admin instructions meropenem, 500 mg, q12h polyetheylene glycol, 17 g, Nightly senna, 2 tablet, BID sodium chloride, 10 mL, BID tamsulosin, 0.8 mg, Nightly acetaminophen, 650 mg, q6h PRN LORazepam, 0.5 mg, q12h PRN naloxone, 0.04 mg, PRN ondansetron (ZOFRAN-ODT) disintegrating tablet, 4 mg, q8h PRN Or ondansetron, 4 mg, q8h PRN sodium chloride, 10 mL, PRN SUBJECTIVE : Shortness of breath with activity which is his baseline, no other complaints, he reports he has ambulated in the room. Having regular bowel movements. No bleeding. OBJECTIVE: Vitals: 04/29/25 0500 04/29/25 0745 04/29/25 1516 04/29/25 1530 BP: (!) 108/93 (!) 122/96 BP Location: Patient Position: Sitting Pulse: 99 103 104 Resp: Temp: 36.4 ??C (97.6 ??F) 36.7 ??C (98 ??F) TempSrc: Temporal SpO2: 100% 99% 100% Weight: 84.2 kg (185 lb 9.6 oz) Height: Temp (24hrs), Av.6 ??C (97.8 ??F), Min:36.4 ??C (97.5 ??F), Max:36.7 ??C (98 ??F) Intake/Output Summary (Last 24 hours) at 04/29/2025 1642 Last data filed at 04/29/2025 1500 Gross per 24 hour Intake 1563.33 ml Output 1333 ml Net 230.33 ml Wt Readings from Last 1 Encounters: 04/29/25 0500 84.2 kg (185 lb 9.6 oz) 04/27/25 0600 82.9 kg (182 lb 12.8 oz) 04/26/25 0600 84.5 kg (186 lb 3.2 oz) 04/25/25 0600 85.7 kg (189 lb) 04/24/25 0600 86.8 kg (191 lb 6.4 oz) 04/23/25 1842 86.6 kg (191 lb) PHYSICAL EXAM: Gen: Alert,, anxious. Not in acute distress CV -RRR no MGR Lungs -CTAB, good air movement, no increased work of breathing Abd - Soft, non-tender, non-distended Extremities - No LE edema Neuro - AO x3, speech is clear, face is symmetric Imaging: XR Chest 1 View Narrative: PROCEDURE: AP chest radiograph. HISTORY: SOB, pulmonary edema suspected. COMPARISON: 04/15/2025. FINDINGS: Mildly hypoventilatory inspiratory effort. Patchy linear opacities at the bases, left greater than right, more extensive than on the previous study. Slight blunting of the right costophrenic angle, pleural thickening versus a trace pleural effusion. Stable mild cardiac enlargement. Mild degenerative changes of the spine and shoulders. Impression: Patchy opacities at both bases appears slightly more prominent than on the previous study. Trace right pleural effusion or pleural thickening. -------- FINAL REPORT -------- Dictated By: Uche Ham Dictated Date: 04/27/2025 12:51 ET Assigned Physician: Uche Ham Reviewed and Electronically Signed By: Uche Ham Signed Date: 04/27/2025 12:56 ET Workstation ID: [id number] Transcribed By: Self Edit Transcribed Date: 04/27/2025 12:51 ET [x] Code status: Full Code - Default [x] VTE Prophylaxis: Pharmacological contraindicated given hematoma and renal bleed. [x] Lines, tubes, drains: Straight catheterization intermittently Health Care proxy with Phone number: * Coral Apodaca, PT - 04/29/2025 2:23 PM EST [facility] Physical Therapy Evaluation & Treatment PT Discharge Recommendations: longterm facility placement Staff Recommendations for safe patient handlin person CG with emerson , can safely amb to bathroom AM-PAC 6 Clicks Scoring Form: Unable: 1 A Lot: 2 A Little: 3 None: 4 How much difficulty does the patient currently have? Turning over in bed (including adjustment of bedclothes, sheets, and blankets) [] [] [] [x] Sitting down on and standing up from a chair with arms (wheelchair, bedside commode etc [] [] [] [x] Moving from lying on back to sitting on the side of the bed [] [] [] [x] How much help from another person does the patient currently need? Moving to and from a bed to a chair ( including a wheelchair) [] [] [x] [] To walk in hospital room [] [] [x] [] Climbing 3-5 steps with a railing [x] [] [] [] Score: 19 /24 A score of 19 but pt is only able to amb about 5 ft before he fatigues and unable to negotiate stairs at this time Precautions Medical Precautions: Fall Risk Safety Interventions: Call agrawal within reach, Side rails up x2 RUE Weight Bearing Status: Full LUE Weight Bearing Status: Full RLE Weight Bearing Status: Full LLE Weight Bearing Status: Full Fall prevention education provided including use of call light in hospital, use of appropriate assistive device, safe mobility techniques, and safety measures at home. PT Received On: 04/29/25 PT Start Time: 1030 PT Stop Time: 1115 PT Time Calculation (min): 45 min General Family/Caregiver Present: No Precautions Medical Precautions: Fall Risk Safety Interventions: Call agrawal within reach, Side rails up x2 RUE Weight Bearing Status: Full LUE Weight Bearing Status: Full RLE Weight Bearing Status: Full LLE Weight Bearing Status: Full Cognition Overall Cognitive Status: Within Functional Limits Arousal/Alertness: Appropriate responses to stimuli Orientation Level: Oriented X4 Following Commands: Follows one step commands consistently Safety Judgment: Good awareness of safety precautions Awareness of Errors: Good awareness of errors made Hearing: Intact Vision: Intact Speech: Intact Integumentary: NT History of Present Illness: Patient is a 64 y.o. male admitted to [facility] on 04/23/2025. Problem List[1] Medical History[2] Surgical History[3] Social History Home Living Environment: Home Living Type of Home: Homeless Prior Function Level of [place]: Independent with mobility and functional transfers Ambulation Status: Community ambulator Which is your dominant hand?: Right Prior Function Comments: pt states he hasnt been able to walk more than a few steps but unable to say when this started, above infor was entered by [employer] on 02/2025 General Assessment 04/29/25 1030 PT Last Visit PT Received On 04/29/25 General Family/Caregiver Present No PT Time Calculation PT Start Time 1030 PT Stop Time 1115 PT Time Calculation (min) 45 min Precautions Medical Precautions Fall Risk Safety Interventions Call agrawal within reach;Side rails up x2 RUE Weight Bearing Status Full LUE Weight Bearing Status Full RLE Weight Bearing Status Full LLE Weight Bearing Status Full Vital Signs Patient Identification Yes Oxygen Therapy Oxygen Therapy None (Room air) Pain Assessment Pain Assessment No/denies pain Pain Score 0 - No pain Cognition Overall Cognitive Status WFL Arousal/Alertness Appropriate responses to stimuli Orientation Level Oriented X4 Following Commands Follows one step commands consistently Safety Judgment Good awareness of safety precautions Awareness of Errors Good awareness of errors made Home Living Type of Home Homeless Prior Function Level of [place] Independent with mobility and functional transfers Ambulation Status Community ambulator Prior Function Comments pt states he hasnt been able to walk more than a few steps but unable to say when this started, above infor was entered by [employer] on 02/2025 Activity Tolerance Endurance Tolerates 10 - 20 min exercise with multiple rests Sensation Light Touch No apparent deficits Coordination Coordination Functional Postural Control Postural Control WFL Static Sitting Balance Static Sitting-Level of Assistance Supervision Static Standing Balance Static Standing-Level of Assistance Standby assistance Bed Mobility Rolling Left and Right Assistance Standby assistance Rolling Left and Right Deficit Steadying;Verbal cueing Lying to Sitting Assistance Standby assistance Lying to Sitting Deficit Steadying;Verbal cueing;Supervision/safety awareness;Increased time to complete Transfers Sit to Stand Assistance Standby assistance Sit to Stand Deficit Steadying;Verbal cueing;Supervision/safety awareness;Increased time to complete Chair/Bed to Chair/Bed Transfer Assistance Contact guard;Standby assistance Chair/Bed to Chair/Bed Transfer Deficit Steadying;Verbal cueing;Supervision/safety awareness;Increased time to complete Transfer Comments was able to transfer from bed and bedside chair with SBA Ambulation Walking Assistance Standby assistance;Contact guard Walking Deficit Verbal cueing;Steadying;Supervision/safety awareness;Increased time to complete;Limited endurance;LE weakness Device Rolling walker Distance Ambulated (ft) 8 (and 10 ft in room) Comments pt self limiting and very anxious repeating self to make sure were on the same page for the plan RUE Assessment RUE Assessment Within Functional Limits LUE Assessment LUE Assessment Within Functional Limits RLE Assessment RLE Assessment Within Functional Limits RLE Assessment Comments /5 LLE Assessment LLE Assessment Within Functional Limits LLE Assessment Comments 3/5 PT Assessment PT Assessment Results Decreased strength;Decreased range of motion;Decreased endurance;Impaired balance;Impaired gait;Decreased mobility Prognosis Good Evaluation/Treatment Tolerance Patient limited by fatigue Medical Staff Made Aware Yes Plan Treatment/Interventions Functional transfer training;LE strengthening/ROM;Bed mobility;Gait training PT Plan Skilled PT PT Frequency 2-5 days per week PT Duration of Sessions 15-30 min per session PT Treatments per day 1 time per day PT Discharge Recommendations longterm facility placement PT - Evaluation Status Complete PT Evaluation Time Entry PT Evaluation (Moderate) Time Entry 45 Treatment performed during evaluation: None performed ADDITIONAL COMMENTS: Chart reviewed. RN clears pt for session. Pt agrees to participate and presented in bed upon PT arrival. All lines in place. Gait belt utilized throughout treatment to maximize safety. Medical precautions observed appropriately. Initiated education on the importance of PT, bed mobility safety, Transfer Safety, Ambulation Safety , Therapy Plan of Care, Home Safety, Energy Conservations strategies, and importance of OOB activity . Pt verbalized understanding. EXIT STATUS: Session ended with patient in chair, tray table and call light within reach, and RN made aware. Physical Therapy Assessment/Plan [facility] is a 64 y.o. male admitted to [facility] on 04/23/2025 for Urinary retention [R33.9] Obstructive uropathy [N13.9] . Pt presents with decreased BLE strength, balance deficits, decreasedactivity tolerance, and far below functional baseline. Pt performed bed mobility Contact guard, Bedrail and HOB elevated, Transfers with Stand by assist and Contact guard, FWW and ambulates Contact guard with FWW 8 and 10 ft with a seated rest in between. Pt will benefit from skilled acute PT during hospital stay to improve the deficits listed above and optimize function. PT recommends longterm facility placement when medically stable for safe discharge and to optimize functional mobility and independence. Goals Encounter Problems Encounter Problems (Active) Template: Physical Therapy Problem: PT Short Term Goals Dates: Start: 04/29/25 Goal: Pt will ambulate up to 100ft with RW with Supervision Dates: Start: 04/29/25 Expected End: 05/06/25 Encounter Problems (Resolved) There are no resolved problems. Education Documentation Home Exercise Program, taught by Coral Apodaca PT at 04/29/2025 2:22 PM. Learner: Patient Readiness: Eager Method: Explanation, Demonstration Response: Demonstrated Understanding, Verbalizes Understanding, Needs Reinforcement Comment: pt was introduced and did seated therex AP, LAQ 10 x Mobility Training, taught by Coral Apodaca PT at 04/29/2025 2:22 PM. Learner: Patient Readiness: Eager Method: Explanation, Demonstration Response: Demonstrated Understanding, Verbalizes Understanding, Needs Reinforcement Comment: pt was introduced and did seated therex AP, LAQ 10 x Education Comments No comments found. Coral Apodaca PT [1] Patient Active Problem List Diagnosis ARF (acute renal failure) ([facility] V24) Left leg pain Urinary retention Obstructive uropathy [2] Past Medical History: Diagnosis Date DVT (deep venous thrombosis) ([facility] V24, [facility] V28) Hypertension [3] History reviewed. No pertinent surgical history. * Chiara Syed LCSW - 04/29/2025 12:44 PM EST Sw met with the pt at the bedside the pt was alert and oriented pt has been staying on the streets [facility] stated pt needs a HLOC due to medical necessity referrals [facility] pt will be ready to d/c within the next 24 hours pt is not a candidate for medical respite as he does not have a rehab able condition there are no available alf beds sw will continue to follow for d/c planning * Abraham May MD - 04/29/2025 11:29 AM EST Images from the original note were not included. Progress Note CHIEF COMPLAINT F/u SUBJECTIVE Patient awake and very communicative Good urine output with straight cath Patient on isolation MEDICAL HISTORY Medical History[1] MEDICATIONS MEDSSCHEDULED[2] MEDSPRN[3] MEDSCONTINUOUS[4] OBJECTIVE Vital signs in last 24 hours: Visit Vitals BP (!) 108/93 Pulse 99 Temp 36.4 ??C (97.6 ??F) Resp 20 Intake/Output last 24 hours: Intake/Output Summary (Last 24 hours) at 04/29/2025 1129 Last data filed at 04/29/2025 0600 Gross per 24 hour Intake 680 ml Output 1683 ml Net -1003 ml Weights: Admission Weight: Weight: 86.6 kg (191 lb) Wt Readings from Last 3 Encounters: 04/29/25 84.2 kg (185 lb 9.6 oz) 04/23/25 86.7 kg (191 lb 3.2 oz) 04/16/25 83.9 kg (185 lb) Physical Exam: General: No acute distress HEENT: Normocephalic, atraumatic, anicteric Cardiovascular: S1 S2 normal Respiratory: unlabored Gl: soft non-distended Extremities: No cyanosis Neurological: Alert Integumentary: no rash Psych: Calm, cooperative LABS Results from last 7 days Lab Units 04/29/25 0718 04/28/25 0600 04/27/25 0644 WBC AUTO K/mcL 11.1* 9.9 8.9 HEMOGLOBIN g/dL 11.0* 10.6* 10.6* HEMATOCRIT % 35.0* 32.7* 33.6* MCV FL 82.4 81.5 82.2 PLATELETS K/mcL 337 299 326 Results from last 7 days Lab Units 04/29/25 0718 04/28/25 0557 04/27/25 0644 CREATININE mg/dL 3.68* 3.71* 3.58* BUN mg/dL 92* 87* 83* SODIUM mmol/L 136 137 138 POTASSIUM mmol/L 4.4 4.2 4.1 CHLORIDE mmol/L 101 103 103 CO2 mmol/L 21 20* 20* Phosphorus Date Value Ref Range Status 04/29/2025 5.9 (H) 2.5 - 4.5 mg/dL Final 04/27/2025 5.4 (H) 2.5 - 4.5 mg/dL Final 04/26/2025 5.3 (H) 2.5 - 4.5 mg/dL Final No results found for: IRON , TIBC , FERRITIN No results found for: COLORUA , CLARITYUA , SPECGRAVUA , PHUA , PROTUA , GLUCOSEUA , KETONESUA , BILIRUBINUA , BLOODUA , UROBILINOGUA , NITRITEUA IMPRESSION and PLAN 64 year old male with history of hypertension, 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 He was diagnosied with occlusive right popliteal DVT and eliquis was held with a possible bleeding into his left kidney and patient refuse IVC. CT without contrast :KIDNEYS/URETERS: Mild bilateral hydronephrosis and hydroureter. No renal or ureteral calculi. Hyperdensity in the lower pole calyces and left renal pelvis, new from prior. 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 His baseline creatinine is about 3-4 He was seen in [facility] early Mar for similar issue: heart failure exacerbation and urinary retention Recs: Creatinine currently around 3.6 baseline about 3-4) Off IV Lasix Patient in significant negative balance and could have postobstructive diuresis- will hold off on Bumex Will give LR 100 mL/h ON meds for BPH Patient refuse dill and managed to straight cath himself today Earlier this week patient was informed that he has stage IV CKD at baseline and if he does not haveany definitive correction for his bladder outlet obstruction and if he does not perform straight cath every 6 hourly as recommended his creatinine will continue to worsen and he might end up on renalreplacement therapy. He understands the concept but still does not want to have any intervention done other than straight cath I discussed with him again on Saturday about renal replacement therapy that he will end up on at some point down the road> patient states that he does not want to go on dialysis PICC line can be placed in the dominant arm-discussed with the medical team and IV team Daily weight Monitor output Abraham May MD [1] Past Medical History: Diagnosis Date DVT (deep venous thrombosis) ([facility] V24, [facility] V28) Hypertension [2] bumetanide, 1 mg, oral, Daily finasteride, 5 mg, oral, Daily meropenem, 500 mg, intravenous, q12h polyetheylene glycol, 17 g, oral, Nightly senna, 2 tablet, oral, BID sodium chloride, 10 mL, intravenous, BID tamsulosin, 0.8 mg, oral, Nightly [3] PRN medications: acetaminophen, naloxone, ondansetron (ZOFRAN-ODT) disintegrating tablet ORondansetron, Insert peripheral IV AND Maintain IV access AND Saline lock IV AND sodium chloride AND sodium chloride [4] * Cari Norman RN - 04/28/2025 5:11 PM EST Goals: Patient will successfully straight catheterize himself Q6h this shift. Patient successfully straight catheterized himself twice this shift Identify possible barriers to meeting goals/advancing plan of care: 1500 fluids restriction/knowledge deficit despite reoccurring education. IV ABX Stability of the patient: Moderately Stable - Low risk of patient condition declining or worsening End of Shift Summary: Patient awake, AOX4, VSS BP runs soft/provider aware. Disposition? Call agrawal within reach, patient pivots to commode safely during shift, or standby with walker during ambulation.0/10 pain reported and no PRN's provided this shift. * Rafita Contreras MD - 04/28/2025 3:45 PM EST [facility] 04/23[birth year]2025 1960 64 y.o. [id number] Rafita Contreras, * INTERVAL HISTORY: No events overnight PAST MEDICAL HISTORY:Hypertension, CKD stage IV, BPH, history of lower extremity cellulitis, history of DVT of the lower extremity x 2, chronic systolic heart failure, severe mitral regurgitation, anemia of chronic disease, history of alcohol abuse, noncompliance. ED TRIAGE REPORT: He was inpatient here for urinary retention due to BPH but left AMA today because he wanted chap stick and some inhaler and couldn't get any. He has checked back in to continue histreatment. He states that he was getting catheterized every 6 hours. He states that he doesn't feellike his bladder is full. A bladder scan was just done and he has greater than 499 currently. He isrefusing to be straight cathed. ASSESSMENT/PLAN: 63-year-old male with a past medical history as above who presented to the hospital secondary to obstructive uropathy with bilateral hydronephrosis, patient was initially seen in theED and left AGAINST MEDICAL ADVICE but returned soon after due to persistent retention. # Dyspnea. The patient reported an episode of dyspnea at rest on 04/27/25, he denies any chest pain or palpitations, he has some intermittent cough, no acute changes, he stated this shortness of breath has been going on and off intermittently, at that time symptoms worsened and he demanded to get some supplemental oxygen for comfort despite having normal O2 saturation on room air, despite nasal cannula he continued to have shortness of breath and requested a mask, he was provided a shovel mask by respiratory therapy and he felt better, the episode lasted about 2 or 3 hours. Resolved without intervention. EKG showed sinus tachycardia with PVCs and nonspecific ST-T wave changes, chest x-ray abe ws some nonspecific patchy opacities in the bases and possibly a small pleural effusion, no significant changes when compared to prior study. The patient was made aware of the risk of PE, he is not on anticoagulation, he has documented lower extremity DVT of his right popliteal and has multiple comorbidities putting him at risk for venous thromboembolism. He has been offered IVC filter that he declined. His anticoagulation was discontinued because of suspected left renal bleed and left thigh hematoma, the patient states he would not take anticoagulation anyway. He is confident that his symptoms are not associated to venous thromboembolism, the patient was offered VQ scan that he declined. Florencio nails is also quite anxious and he was offered anxiety medication that he also declined. His symptoms after he had a shovel mask placed by respiratory therapy are resolved, patient insist that he does not want any further workup to rule out PE. Today the patient is feeling better, confirmed that hedoes not want to have more workup. # CKD stage IV. Patient has advanced CKD presumably due to chronic obstruction, patient continues to refuse Dill catheter, has a history of BPH for which urology has seen the patient, currently he has been compliant with self- catheterization 4 times a day, patient has been extensively counseled about importance of compliance with this approach. Renal function remains close to baseline no clear evidence of BALWINDER. Continue to monitor closely given ongoing diuresis for CHF. Anion gap metabolic acidosis has improved without intervention, continue to monitor. # Complicated UTI. Patient has evidence of acute cystitis, culture showing ESBL E. coli, ceftriaxone has been discontinued, start renally adjusted meropenem, discussed with ID, needs 7 days of carbapenem, given poor renal function and mild QTc prolongation not a candidate for other therapies. He will and his treatment on 05/02/2025 # Obstructive uropathy secondary to BPH, he has bilateral hydronephrosis, patient continues to refuse Dill catheter, he was seen by urology, he will follow-up with them as an outpatient, recommendedcontinue straight cath 4 times a day, he continues to refuse Dill. # Acute on chronic congestive heart failure with severe systolic dysfunction. Patient presented with evidence of volume overload, adequate diuresis, weight coming down, I&O's -4.6 L. Limited options for guideline directed medical therapy, once he is euvolemic can start low-dose beta-patrick # Right lower extremity DVT. Patient was on Eliquis for recurrent DVT, patient has evidence of right thigh hematoma and question of bleeding in the left kidney, patient has refused IVC filter. Patient is at high risk for venous thrombolic event, he refuses to consider workup for PE, encourage ambulation, patient has been made fully aware of the risk of catastrophic thromboembolic phenomena. # Right thigh hematoma, stable, H&H without significant change. No signs of expansion. # Goals of care discussion. During this admission, given the multiple refusal to interventions and his hesitancy to consider renal replacement therapy should renal function worsened as well as refusing chronic indwelling Dill catheter I offer him to discuss goals of care, he is not interested in changing his CODE STATUS, he continues to be a full code, patient is hopeful that his medical issues will eventually improve, he does not want to discuss palliative approach or hospice services at thistime. He states his healthcare proxy his brother Michel who is currently going through stressful lifeevents as he recently lost his house in a fire and his also recently . He does not want him to be contacted and did not provide contact information. Disposition: Need to complete 7 days of IV antibiotics. RESULTS: CBC. Results from last 7 days Lab Units 04/28/25 0600 04/27/25 0644 04/26/25 0649 WBC AUTO K/mcL 9.9 8.9 7.1 HEMOGLOBIN g/dL 10.6* 10.6* 10.8* HEMATOCRIT % 32.7* 33.6* 35.4* MCV FL 81.5 82.2 86.3 PLATELETS K/mcL 299 326 311 LYMPHS PCT AUTO % 17.7 19.8 23.7 MONO PCT AUTO % 12.2 12.2 11.4 EOS PCT AUTO % 0.8 1.5 1.3 Coag Results from last 7 days Lab Units 04/26/25 0649 INR 1.4 Anti-Xa Hematology Results from last 7 days Lab Units 04/24/25 0647 VITAMIN B 12 pcg/mL 1,231* BMP Results from last 7 days Lab Units 04/28/25 0557 04/27/25 0644 04/26/25 0649 04/25/25 0707 SODIUM mmol/L 137 138 137 138 POTASSIUM mmol/L 4.2 4.1 4.3 4.5 CHLORIDE mmol/L 103 103 104 106 CO2 mmol/L 20* 20* 17* 18* ANION GAP 14* 15* 16* 14* BUN mg/dL 87* 83* 79* 75* CREATININE mg/dL 3.71* 3.58* 3.51* 3.38* CALCIUM mg/dL 8.1* 8.3* 8.2* 8.3* MAGNESIUM mg/dL -- 1.8* 1.8* 1.7* PHOSPHORUS mg/dL -- 5.4* 5.3* 4.7* Cardiac Results from last 7 days Lab Units 04/23/25 0600 BNP pcg/mL 2,137* LFT/other Results from last 7 days Lab Units 04/25/25 0707 04/22/25 0630 ALT unit/L 63* 21 AST unit/L 99* 32 ALK PHOS unit/L 327* 233* BILIRUBIN TOTAL mg/dL 0.6 0.6 BILIRUBIN DIRECT mg/dL -- 0.3 TOTAL PROTEIN g/dL 5.8* 5.5* ALBUMIN g/dL 3.1* 3.1* Metabolic Results from last 7 days Lab Units 04/24/25 0647 CRP mg/dL 3.33* Glucose. Results from last 7 days Lab Units 04/28/25 0557 04/27/25 0644 04/26/25 0649 04/25/25 0707 04/24/25 0647 04/23/25 0600 04/22/25 0630 GLUCOSE mg/dL 89 89 95 104* 117* 94 104* Scheduled Medications PRN Medications IV Medications bumetanide, 1 mg, Daily finasteride, 5 mg, Daily meropenem, 500 mg, q12h polyetheylene glycol, 17 g, Nightly senna, 2 tablet, BID sodium chloride, 10 mL, BID tamsulosin, 0.8 mg, Nightly acetaminophen, 650 mg, q6h PRN naloxone, 0.04 mg, PRN ondansetron (ZOFRAN-ODT) disintegrating tablet, 4 mg, q8h PRN Or ondansetron, 4 mg, q8h PRN sodium chloride, 10 mL, PRN SUBJECTIVE : Patient feeling better, shortness of breath with activity which is his baseline, no other complaints, he wants to eat and did not transfer more questions OBJECTIVE: Vitals: 04/28/25 0800 04/28/25 0817 04/28/25 0856 04/28/25 1519 BP: (!) 124/99 123/89 (!) 108/93 BP Location: Right arm Left arm Patient Position: Lying Lying Pulse: 95 108 Resp: 20 24 Temp: 36.3 ??C (97.3 ??F) 36.4 ??C (97.5 ??F) TempSrc: Oral Temporal SpO2: 100% 100% 100% Weight: Height: Temp (24hrs), Av.3 ??C (97.3 ??F), Min:36.1 ??C (97 ??F), Max:36.4 ??C (97.5 ??F) Intake/Output Summary (Last 24 hours) at 04/28/2025 1545 Last data filed at 04/28/2025 1400 Gross per 24 hour Intake 1165 ml Output 1750 ml Net -585 ml Wt Readings from Last 1 Encounters: 04/27/25 0600 82.9 kg (182 lb 12.8 oz) 04/26/25 06 84.5 kg (186 lb 3.2 oz) 04/25/25 0600 85.7 kg (189 lb) 04/24/25 06 86.8 kg (191 lb 6.4 oz) 04/23/25 1842 86.6 kg (191 lb) PHYSICAL EXAM: Gen: Alert,, anxious. Wearing nasal cannula. Comfortable CV -RRR no MGR Lungs -CTAB, good air movement, no increased work of breathing Abd - Soft, non-tender, non-distended Extremities - No LE edema Neuro - AO x3, speech is clear, face is symmetric Imaging: XR Chest 1 View Narrative: PROCEDURE: AP chest radiograph. HISTORY: SOB, pulmonary edema suspected. COMPARISON: 04/15/2025. FINDINGS: Mildly hypoventilatory inspiratory effort. Patchy linear opacities at the bases, left greater than right, more extensive than on the previous study. Slight blunting of the right costophrenic angle, pleural thickening versus a trace pleural effusion. Stable mild cardiac enlargement. Mild degenerative changes of the spine and shoulders. Impression: Patchy opacities at both bases appears slightly more prominent than on the previous study. Trace right pleural effusion or pleural thickening. -------- FINAL REPORT -------- Dictated By: Uche Ham Dictated Date: 04/27/2025 12:51 ET Assigned Physician: Uche Ham Reviewed and Electronically Signed By: Uche Ham Signed Date: 04/27/2025 12:56 ET Workstation ID: [id number] Transcribed By: Self Edit Transcribed Date: 04/27/2025 12:51 ET [x] Code status: Full Code - Default [x] VTE Prophylaxis: Pharmacological contraindicated given hematoma and cranial bleed. [x] Lines, tubes, drains: Straight catheterization intermittently Health Care proxy with Phone number: * Abraham May MD - 04/28/2025 12:15 PM EST Images from the original note were not included. Progress Note CHIEF COMPLAINT F/u SUBJECTIVE Patient was sleepy and did not want to be disturbed Good urine output with straight cath Patient on isolation MEDICAL HISTORY Medical History[1] MEDICATIONS MEDSSCHEDULED[2] MEDSPRN[3] MEDSCONTINUOUS[4] OBJECTIVE Vital signs in last 24 hours: Visit Vitals BP 123/89 Pulse 95 Temp 36.3 ??C (97.3 ??F) (Oral) Resp 20 Intake/Output last 24 hours: Intake/Output Summary (Last 24 hours) at 04/28/2025 1215 Last data filed at 04/28/2025 0859 Gross per 24 hour Intake 1085 ml Output 1400 ml Net -315 ml Weights: Admission Weight: Weight: 86.6 kg (191 lb) Wt Readings from Last 3 Encounters: 04/27/25 82.9 kg (182 lb 12.8 oz) 04/23/25 86.7 kg (191 lb 3.2 oz) 04/16/25 83.9 kg (185 lb) Physical Exam: General: No acute distress HEENT: Normocephalic, atraumatic, anicteric Cardiovascular: S1 S2 normal Respiratory: unlabored Gl: soft non-distended Extremities: No cyanosis Neurological: Alert Integumentary: no rash Psych: Calm, cooperative LABS Results from last 7 days Lab Units 04/28/25 0600 04/27/25 0644 04/26/25 0649 WBC AUTO K/mcL 9.9 8.9 7.1 HEMOGLOBIN g/dL 10.6* 10.6* 10.8* HEMATOCRIT % 32.7* 33.6* 35.4* MCV FL 81.5 82.2 86.3 PLATELETS K/mcL 299 326 311 Results from last 7 days Lab Units 04/28/25 0557 04/27/25 0644 04/26/25 0649 CREATININE mg/dL 3.71* 3.58* 3.51* BUN mg/dL 87* 83* 79* SODIUM mmol/L 137 138 137 POTASSIUM mmol/L 4.2 4.1 4.3 CHLORIDE mmol/L 103 103 104 CO2 mmol/L 20* 20* 17* Phosphorus Date Value Ref Range Status 04/27/2025 5.4 (H) 2.5 - 4.5 mg/dL Final 04/26/2025 5.3 (H) 2.5 - 4.5 mg/dL Final 04/25/2025 4.7 (H) 2.5 - 4.5 mg/dL Final No results found for: IRON , TIBC , FERRITIN No results found for: COLORUA , CLARITYUA , SPECGRAVUA , PHUA , PROTUA , GLUCOSEUA , KETONESUA , BILIRUBINUA , BLOODUA , UROBILINOGUA , NITRITEUA IMPRESSION and PLAN 64 year old male with history of hypertension, 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 He was diagnosied with occlusive right popliteal DVT and eliquis was held with a possible bleeding into his left kidney and patient refuse IVC. CT without contrast :KIDNEYS/URETERS: Mild bilateral hydronephrosis and hydroureter. No renal or ureteral calculi. Hyperdensity in the lower pole calyces and left renal pelvis, new from prior. 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 Bumex 1 mg daily ON meds for BPH Patient refuse dill and managed to straight cath himself today On Saturday I informed patient that he has stage IV CKD at baseline and if he does not have any definitive correction for his bladder outlet obstruction and if he does not perform straight cath every 6hourly as recommended his creatinine will continue to worsen and he might end up on renal replacement therapy. He understands the concept but still does not want to have any intervention done other than straight cath I discussed with him again on Saturday about renal replacement therapy that he will end up on at some point down the road> patient states that he does not want to go on dialysis PICC line can be placed in the dominant arm-discussed with the medical team and IV team Daily weight Monitor output Abraham May MD [1] Past Medical History: Diagnosis Date DVT (deep venous thrombosis) ([facility] V24, [facility] V28) Hypertension [2] bumetanide, 1 mg, oral, Daily finasteride, 5 mg, oral, Daily meropenem, 500 mg, intravenous, q12h polyetheylene glycol, 17 g, oral, Nightly senna, 2 tablet, oral, BID sodium chloride, 10 mL, intravenous, BID tamsulosin, 0.8 mg, oral, Nightly [3] PRN medications: acetaminophen, naloxone, ondansetron (ZOFRAN-ODT) disintegrating tablet ORondansetron, Insert peripheral IV AND Maintain IV access AND Saline lock IV AND sodium chloride AND sodium chloride [4] * Rafita Contreras MD - 04/27/2025 3:36 PM EST Gallito Sly 04/23/2025 1960 64 y.o. [id number] Rafita Contreras, * INTERVAL HISTORY: No events overnight PAST MEDICAL HISTORY:Hypertension, CKD stage IV, BPH, history of lower extremity cellulitis, history of DVT of the lower extremity x 2, chronic systolic heart failure, severe mitral regurgitation, anemia of chronic disease, history of alcohol abuse, noncompliance. ED TRIAGE REPORT: He was inpatient here for urinary retention due to BPH but left AMA today because he wanted chap stick and some inhaler and couldn't get any. He has checked back in to continue histreatment. He states that he was getting catheterized every 6 hours. He states that he doesn't feellike his bladder is full. A bladder scan was just done and he has greater than 499 currently. He isrefusing to be straight cathed. ASSESSMENT/PLAN: 63-year-old male with a past medical history as above who presented to the hospital secondary to obstructive uropathy with bilateral hydronephrosis, patient was initially seen in theED and left AGAINST MEDICAL ADVICE but returned soon after due to persistent retention. # Dyspnea. The patient reported an episode of dyspnea at rest, he denies any chest pain or palpitations, he has some intermittent cough, no acute changes, he states this shortness of breath has been going on and off intermittently, this time symptoms have worsened and he demanded to get some supplemental oxygen for comfort despite having normal O2 saturation on room air, despite nasal cannula he continues to have shortness of breath and requested a mask, he was provided a shovel mask by respiratory therapy and he felt better, the episode lasted about 2 or 3 hours. Resolved without intervention. EKG showed sinus tachycardia with PVCs and nonspecific ST-T wave changes, chest x-ray shows some nonspecific patchy opacities in the bases and possibly a small pleural effusion, no significant changes when compared to prior study. The patient was made aware of the risk of PE, he is not on anticoagulation, he has documented lower extremity DVT of his right popliteal and has multiple comorbidities putting him at risk for venous thromboembolism. He has been offered IVC filter that he declined. His anticoagulation was discontinued because of suspected left renal bleed and left thigh hematoma, the patient states he would not take anticoagulation anyway. He is confident that his symptoms are not associated to venous thromboembolism, the patient was offered VQ scan that he declined. Patient isalso quite anxious and he was offered anxiety medication that he also declined. His symptoms after he had a shovel mask placed by respiratory therapy are resolved, patient insist that he does not want any further workup to rule out PE. # CKD stage IV. Patient has advanced CKD presumably due to chronic obstruction, patient continues to refuse Dill catheter, has a history of BPH for which urology has seen the patient, currently he has been compliant with self- catheterization 4 times a day, patient has been extensively counseled about importance of compliance with this approach. Renal function remains close to baseline no clear evidence of BALWINDER. Continue to monitor closely given ongoing diuresis for CHF. I spoke to Dr. May, he will review the case to see if he is a candidate for oral bicarbonate given his underlying metabolicacidosis. # Complicated UTI. Patient has evidence of acute cystitis, culture showing ESBL E. coli, ceftriaxone has been discontinued, start renally adjusted meropenem, discussed with ID, needs 7 days of carbapenem, given poor renal function and mild QTc prolongation not a candidate for other therapies. # Obstructive uropathy secondary to BPH, he has bilateral hydronephrosis, patient continues to refuse Dlil catheter, he was seen by urology, he will follow-up with them as an outpatient, recommendedcontinue straight cath 4 times a day if continues to refuse Dill. # Acute on chronic congestive heart failure with severe systolic dysfunction. Patient presented with evidence of volume overload, adequate diuresis, weight coming down, I&O's -4.4 L. Limited options for guideline directed medical therapy, once he is euvolemic and start low-dose beta-patrick # Right lower extremity DVT. Patient was on Eliquis for recurrent DVT, patient has evidence of right thigh hematoma and question of bleeding in the left kidney, patient has refused IVC filter. Patient is at high risk for venous thrombolic event, he refuses to consider workup for PE, encourage ambulation, patient has been made fully aware of the risk of catastrophic thromboembolic phenomena. # Right thigh hematoma, stable, H&H without significant change. No signs of expansion. # Goals of care discussion. Today again, given the multiple refusal to interventions and his hesitancy to consider renal replacement therapy should renal function worsened as well as refusing chronicindwelling Dill catheter I offer him to discuss goals of care, he is not interested in changing his CODE STATUS, he continues to be a full code, patient is hopeful that his medical issues will eventually improve, he does not want to discuss palliative approach or hospice services at this time. He states his healthcare proxy his brother who is currently going through stressful life events as he recently lost his house in a fire and his also recently . He does not want him to be contacted and did not provide contact information. Disposition: Need to complete 7 days of IV antibiotics. RESULTS: CBC. Results from last 7 days Lab Units 04/27/25 0644 04/26/25 0649 04/25/25 0707 WBC AUTO K/mcL 8.9 7.1 7.7 HEMOGLOBIN g/dL 10.6* 10.8* 10.7* HEMATOCRIT % 33.6* 35.4* 33.5* MCV FL 82.2 86.3 83.5 PLATELETS K/mcL 326 311 350 LYMPHS PCT AUTO % 19.8 23.7 25.0 MONO PCT AUTO % 12.2 11.4 12.7 EOS PCT AUTO % 1.5 1.3 1.8 Coag Results from last 7 days Lab Units 04/26/25 0649 INR 1.4 Anti-Xa Hematology Results from last 7 days Lab Units 04/24/25 0647 VITAMIN B 12 pcg/mL 1,231* BMP Results from last 7 days Lab Units 04/27/25 0644 04/26/25 0649 04/25/25 0707 SODIUM mmol/L 138 137 138 POTASSIUM mmol/L 4.1 4.3 4.5 CHLORIDE mmol/L 103 104 106 CO2 mmol/L 20* 17* 18* ANION GAP 15* 16* 14* BUN mg/dL 83* 79* 75* CREATININE mg/dL 3.58* 3.51* 3.38* CALCIUM mg/dL 8.3* 8.2* 8.3* MAGNESIUM mg/dL 1.8* 1.8* 1.7* PHOSPHORUS mg/dL 5.4* 5.3* 4.7* Cardiac Results from last 7 days Lab Units 04/23/25 0600 BNP pcg/mL 2,137* LFT/other Results from last 7 days Lab Units 04/25/25 0707 04/22/25 0630 ALT unit/L 63* 21 AST unit/L 99* 32 ALK PHOS unit/L 327* 233* BILIRUBIN TOTAL mg/dL 0.6 0.6 BILIRUBIN DIRECT mg/dL -- 0.3 TOTAL PROTEIN g/dL 5.8* 5.5* ALBUMIN g/dL 3.1* 3.1* Metabolic Results from last 7 days Lab Units 04/24/25 0647 CRP mg/dL 3.33* Glucose. Results from last 7 days Lab Units 04/27/25 0644 04/26/25 0649 04/25/25 0707 04/24/25 0647 04/23/25 0600 04/22/25 0630 GLUCOSE mg/dL 89 95 104* 117* 94 104* Scheduled Medications PRN Medications IV Medications [START ON 04/28/2025] bumetanide, 1 mg, Daily finasteride, 5 mg, Daily meropenem, 500 mg, q12h polyetheylene glycol, 17 g, Nightly senna, 2 tablet, BID sodium chloride, 10 mL, BID tamsulosin, 0.8 mg, Nightly acetaminophen, 650 mg, q6h PRN naloxone, 0.04 mg, PRN ondansetron (ZOFRAN-ODT) disintegrating tablet, 4 mg, q8h PRN Or ondansetron, 4 mg, q8h PRN sodium chloride, 10 mL, PRN SUBJECTIVE : Patient reported an episode of shortness of breath at rest, he feels that nasal cannula is not providing enough air , he is demanding to have a mask to have more respiratory support despite having anormal saturation and no evidence of increased work of breathing. No chest pain nor palpitations. No nausea or vomiting. Appetite is fair. Has been compliant with self-catheterization. Peripheral edema improving. Weight continues to trend down. OBJECTIVE: Vitals: 04/27/25 0600 04/27/25 1100 04/27/25 1207 04/27/25 1306 BP: 104/87 BP Location: Patient Position: Pulse: 108 Resp: 22 Temp: 37.1 ??C (98.8 ??F) TempSrc: Tympanic SpO2: 99% 100% 96% Weight: 82.9 kg (182 lb 12.8 oz) Height: Temp (24hrs), Av.6 ??C (97.9 ??F), Min:36.3 ??C (97.4 ??F), Max:37.1 ??C (98.8 ??F) Intake/Output Summary (Last 24 hours) at 04/27/2025 1536 Last data filed at 04/27/2025 1010 Gross per 24 hour Intake 450 ml Output 2300 ml Net -1850 ml Wt Readings from Last 1 Encounters: 04/27/25 06 82.9 kg (182 lb 12.8 oz) 04/26/25 06 84.5 kg (186 lb 3.2 oz) 04/25/25 06 85.7 kg (189 lb) 04/24/25 06 86.8 kg (191 lb 6.4 oz) 04/23/25 1842 86.6 kg (191 lb) PHYSICAL EXAM: Gen: Alert,, anxious. Wearing nasal cannula. CV -RRR no MGR Lungs -CTAB, good air movement, no increased work of breathing Abd - Soft, non-tender, non-distended Extremities - No LE edema Neuro - AO x3, speech is clear, face is symmetric Imaging: XR Chest 1 View Narrative: PROCEDURE: AP chest radiograph. HISTORY: SOB, pulmonary edema suspected. COMPARISON: 04/15/2025. FINDINGS: Mildly hypoventilatory inspiratory effort. Patchy linear opacities at the bases, left greater than right, more extensive than on the previous study. Slight blunting of the right costophrenic angle, pleural thickening versus a trace pleural effusion. Stable mild cardiac enlargement. Mild degenerative changes of the spine and shoulders. Impression: Patchy opacities at both bases appears slightly more prominent than on the previous study. Trace right pleural effusion or pleural thickening. -------- FINAL REPORT -------- Dictated By: Uche Ham Dictated Date: 04/27/2025 12:51 ET Assigned Physician: Uche Ham Reviewed and Electronically Signed By: Uche Ham Signed Date: 04/27/2025 12:56 ET Workstation ID: [id number] Transcribed By: Self Edit Transcribed Date: 04/27/2025 12:51 ET [x] Code status: Full Code - Default [x] VTE Prophylaxis: Pharmacological contraindicated given hematoma and cranial bleed. [x] Lines, tubes, drains: Straight catheterization intermittently Health Care proxy with Phone number: * Jean Claude Garrett RN - 04/27/2025 3:04 PM EST Goals: Identify possible barriers to meeting goals/advancing plan of care: New SOB, On IV abx for ESBL Stability of the patient: Moderately Unstable - Medium risk of patient condition declining or worsening End of Shift Summary: Patient with new SOB, MD aware in to see patient, RT in to see patient - O2 shovel mask provided for comfort per MD. Improving confidence with self straight cath and understanding of regularly scheduled cathing, continues to need supervision and guidance to maintain aseptic technique. * Jean Claude Garrett RN - 04/27/2025 1:00 PM EST Patient seen by MD at bedside following increased WOB and c/o SOB. EKG done, RT in to set up O2 shovel for breathing comfort. Patient confirmed he does not want to get checked for a pulmonary embolism. When this RN asked why, he stated I don't think its very likely in my situation. People have blood clots all the time and don't get embolisms. I read up about it on the internet. I don't have any pain. I just want more air. (Patient set up with O2 via shovel with good effect) When asked what did the doctor tell you about the risks the patient stated He worries about a lot of things, I'm not worried, I'd rather play the odds. I had a blood clot 5 years ago and they wanted to do an x-ray to look for a PE, but I said no then, and nothing has come of it * Abraham May MD - 04/27/2025 12:02 PM EST Images from the original note were not included. Progress Note CHIEF COMPLAINT F/u SUBJECTIVE Patient seen and examined Good urine output with straight cath Patient on isolation MEDICAL HISTORY Medical History[1] MEDICATIONS MEDSSCHEDULED[2] MEDSPRN[3] MEDSCONTINUOUS[4] OBJECTIVE Vital signs in last 24 hours: Visit Vitals BP (!) 112/93 (BP Location: Left arm, Patient Position: Lying) Pulse 103 Temp 36.3 ??C (97.4 ??F) (Oral) Resp 16 Intake/Output last 24 hours: Intake/Output Summary (Last 24 hours) at 04/27/2025 1202 Last data filed at 04/27/2025 1010 Gross per 24 hour Intake 500 ml Output 2300 ml Net -1800 ml Weights: Admission Weight: Weight: 86.6 kg (191 lb) Wt Readings from Last 3 Encounters: 04/27/25 82.9 kg (182 lb 12.8 oz) 04/23/25 86.7 kg (191 lb 3.2 oz) 04/16/25 83.9 kg (185 lb) Physical Exam: General: No acute distress HEENT: Normocephalic, atraumatic, anicteric Cardiovascular: S1 S2 normal Respiratory: unlabored Gl: soft non-distended Extremities: No cyanosis Neurological: Alert Integumentary: no rash Psych: Calm, cooperative LABS Results from last 7 days Lab Units 04/27/25 0644 04/26/25 0649 04/25/25 0707 WBC AUTO K/mcL 8.9 7.1 7.7 HEMOGLOBIN g/dL 10.6* 10.8* 10.7* HEMATOCRIT % 33.6* 35.4* 33.5* MCV FL 82.2 86.3 83.5 PLATELETS K/mcL 326 311 350 Results from last 7 days Lab Units 04/27/25 0644 04/26/25 0649 04/25/25 0707 CREATININE mg/dL 3.58* 3.51* 3.38* BUN mg/dL 83* 79* 75* SODIUM mmol/L 138 137 138 POTASSIUM mmol/L 4.1 4.3 4.5 CHLORIDE mmol/L 103 104 106 CO2 mmol/L 20* 17* 18* Phosphorus Date Value Ref Range Status 04/27/2025 5.4 (H) 2.5 - 4.5 mg/dL Final 04/26/2025 5.3 (H) 2.5 - 4.5 mg/dL Final 04/25/2025 4.7 (H) 2.5 - 4.5 mg/dL Final No results found for: IRON , TIBC , FERRITIN No results found for: COLORUA , CLARITYUA , SPECGRAVUA , PHUA , PROTUA , GLUCOSEUA , KETONESUA , BILIRUBINUA , BLOODUA , UROBILINOGUA , NITRITEUA IMPRESSION and PLAN 64 year old male with history of hypertension, 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 He was diagnosied with occlusive right popliteal DVT and eliquis was held with a possible bleeding into his left kidney and patient refuse IVC. CT without contrast :KIDNEYS/URETERS: Mild bilateral hydronephrosis and hydroureter. No renal or ureteral calculi. Hyperdensity in the lower pole calyces and left renal pelvis, new from prior. 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 Bumex 1 mg daily ON meds for BPH Patient refuse dill and managed to straight cath himself today Yesterday I informed patient that he has stage IV CKD at baseline and if he does not have any definitive correction for his bladder outlet obstruction and if he does not perform straight cath every 6hourly as recommended his creatinine will continue to worsen and he might end up on renal replacement therapy. He understands the concept but still does not want to have any intervention done other than straight cath I discussed with him again today about renal replacement therapy that he will end up on at some point down the road> patient states that he does not want to go on dialysis PICC line can be placed in the dominant arm-discussed with the medical team and IV team Daily weight Monitor output Abraham May MD [1] Past Medical History: Diagnosis Date DVT (deep venous thrombosis) ([facility] V24, [facility] V28) Hypertension [2] finasteride, 5 mg, oral, Daily furosemide, 40 mg, intravenous, BID 02-10 meropenem, 500 mg, intravenous, q12h polyetheylene glycol, 17 g, oral, Nightly senna, 2 tablet, oral, BID sodium chloride, 10 mL, intravenous, BID tamsulosin, 0.8 mg, oral, Nightly [3] PRN medications: acetaminophen, naloxone, ondansetron (ZOFRAN-ODT) disintegrating tablet ORondansetron, Insert peripheral IV AND Maintain IV access AND Saline lock IV AND sodium chloride AND sodium chloride [4] * Vimal Castillo RN - 04/27/2025 11:42 AM EST Spoke with Dr. May nephrology this afternoon and stated it will be ok when the time comes to placea midline or picc line if needed for discharge. Dr. Wong states awaiting bed only needs 6 more days of iv antibiotic so will hold of until pt has a bed. Will continue to follow. * Jean Claude Garrett RN - 04/26/2025 6:29 PM EST Goals: Identify possible barriers to meeting goals/advancing plan of care: IV abx. +ESBL in urine Stability of the patient: Moderately Stable - Low risk of patient condition declining or worsening End of Shift Summary: ESBL precautions explained to patient. RN supporting patient to be independent with straight cath. Continues to need pointers and reassurance to keep process sterile. Performingcaths effectively. Seen by ID, IV abx changed. IV lasix given. Ok'd for additional straight caths as indicated. * Abraham May MD - 04/26/2025 10:55 AM EST Images from the original note were not included. Progress Note CHIEF COMPLAINT F/u SUBJECTIVE Patient seen and examined Getting ready to straight cath himself MEDICAL HISTORY Medical History[1] MEDICATIONS MEDSSCHEDULED[2] MEDSPRN[3] MEDSCONTINUOUS[4] OBJECTIVE Vital signs in last 24 hours: Visit Vitals BP (!) 130/94 (BP Location: Left arm, Patient Position: Lying) Pulse 104 Temp 36.3 ??C (97.4 ??F) (Temporal) Resp 16 Intake/Output last 24 hours: Intake/Output Summary (Last 24 hours) at 04/26/2025 1056 Last data filed at 04/26/2025 1010 Gross per 24 hour Intake 1190 ml Output 2100 ml Net -910 ml Weights: Admission Weight: Weight: 86.6 kg (191 lb) Wt Readings from Last 3 Encounters: 04/26/25 84.5 kg (186 lb 3.2 oz) 04/23/25 86.7 kg (191 lb 3.2 oz) 04/16/25 83.9 kg (185 lb) Physical Exam: General: No acute distress HEENT: Normocephalic, atraumatic, anicteric Cardiovascular: S1 S2 normal Respiratory: unlabored Gl: soft non-distended Extremities: No cyanosis Neurological: Alert Integumentary: no rash Psych: Calm, cooperative LABS Results from last 7 days Lab Units 04/26/25 0649 04/25/25 0707 04/24/25 0647 WBC AUTO K/mcL 7.1 7.7 8.3 HEMOGLOBIN g/dL 10.8* 10.7* 10.8* HEMATOCRIT % 35.4* 33.5* 34.9* MCV FL 86.3 83.5 84.9 PLATELETS K/mcL 311 350 344 Results from last 7 days Lab Units 04/26/25 0649 04/25/25 0707 04/24/25 0647 CREATININE mg/dL 3.51* 3.38* 3.32* BUN mg/dL 79* 75* 73* SODIUM mmol/L 137 138 139 POTASSIUM mmol/L 4.3 4.5 4.5 CHLORIDE mmol/L 104 106 106 CO2 mmol/L 17* 18* 17* Phosphorus Date Value Ref Range Status 04/26/2025 5.3 (H) 2.5 - 4.5 mg/dL Final 04/25/2025 4.7 (H) 2.5 - 4.5 mg/dL Final 03/24/2025 4.7 (H) 2.5 - 4.5 mg/dL Final No results found for: IRON , TIBC , FERRITIN No results found for: COLORUA , CLARITYUA , SPECGRAVUA , PHUA , PROTUA , GLUCOSEUA , KETONESUA , BILIRUBINUA , BLOODUA , UROBILINOGUA , NITRITEUA IMPRESSION and PLAN 64 year old male with history of hypertension, 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 He was diagnosied with occlusive right popliteal DVT and eliquis was held with a possible bleeding into his left kidney and patient refuse IVC. CT without contrast :KIDNEYS/URETERS: Mild bilateral hydronephrosis and hydroureter. No renal or ureteral calculi. Hyperdensity in the lower pole calyces and left renal pelvis, new from prior. 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 His baseline creatinine is about 3-4 He was seen in [facility] early Mar for similar issue: heart failure exacerbation and urinary retention Recs: Creatinine currently 3.5 ( baseline about 3-4) Volume overloaded, on lasix-Will change to every 12 hourly Lasix 40 mg-weight down by 2 kg since admission ON meds for BPH Patient refuse dill and managed to straight cath himself today I informed patient that he has stage IV CKD at baseline and if he does not have any definitive correction for his bladder outlet obstruction and if he does not perform straight cath every 6 hourly asrecommended his creatinine will continue to worsen and he might end up on renal replacement therapy. He understands the concept but still does not want to have any intervention done other than straigh t cath Daily weight Monitor output Abraham May MD [1] Past Medical History: Diagnosis Date DVT (deep venous thrombosis) ([facility] V24, [facility] V28) Hypertension [2] finasteride, 5 mg, oral, Daily furosemide, 40 mg, intravenous, q8h meropenem, 500 mg, intravenous, q12h polyetheylene glycol, 17 g, oral, Nightly senna, 2 tablet, oral, BID sodium chloride, 10 mL, intravenous, BID tamsulosin, 0.8 mg, oral, Nightly [3] PRN medications: acetaminophen, naloxone, ondansetron (ZOFRAN-ODT) disintegrating tablet ORondansetron, Insert peripheral IV AND Maintain IV access AND Saline lock IV AND sodium chloride AND sodium chloride [4] * Rafita Contreras MD - 04/26/2025 10:32 AM EST Gallito Reganestrada 04/23/2025 1960 64 y.o. [phone] Rafita Contreras, * INTERVAL HISTORY: Microbiology reported ESBL Klebsiella in the urine. PAST MEDICAL HISTORY:Hypertension, CKD stage IV, BPH, history of lower extremity cellulitis, history of DVT of the lower extremity x 2, chronic systolic heart failure, severe mitral regurgitation, anemia of chronic disease, history of alcohol abuse, noncompliance. ED TRIAGE REPORT: He was inpatient here for urinary retention due to BPH but left AMA today because he wanted chap stick and some inhaler and couldn't get any. He has checked back in to continue histreatment. He states that he was getting catheterized every 6 hours. He states that he doesn't feellike his bladder is full. A bladder scan was just done and he has greater than 499 currently. He isrefusing to be straight cathed. ASSESSMENT/PLAN: 63-year-old male with a past medical history as above who presented to the hospital secondary to obstructive uropathy with bilateral hydronephrosis, patient was initially seen in theED and left AGAINST MEDICAL ADVICE but returned soon after due to persistent retention. # CKD stage IV. Patient has advanced CKD presumably due to chronic obstruction, patient continues to refuse Dill catheter, has a history of BPH for which urology has seen the patient, currently he has been compliant with self- catheterization 4 times a day, patient has been extensively counseled about importance of compliance with this approach. Renal function remains close to baseline no clear evidence of BALWINDER. Continue to monitor closely given ongoing diuresis for CHF # Complicated UTI. Patient has evidence of acute cystitis, culture showing ESBL E. coli, ceftriaxone has been discontinued, start renally adjusted meropenem, discussed with ID, needs a days of carbapenem, given poor renal function and mild QTc prolongation not a candidate for other therapies. # Obstructive uropathy secondary to BPH, he has bilateral hydronephrosis, patient continues to refuse Dill catheter, he was seen by urology, he will follow-up with them as an outpatient, recommendedcontinue straight cath 4 times a day if continues to refuse Dill. # Acute on chronic congestive heart failure with severe systolic dysfunction. Patient presented with evidence of volume overload, adequate diuresis, weight coming down, I&O's -3.5 L. Limited options for guideline directed medical therapy, once he is euvolemic and start low-dose beta-patrick # Right lower extremity DVT. Patient was on Eliquis for recurrent DVT, patient has evidence of right thigh hematoma and question of bleeding in the left kidney, patient has refused IVC filter. # Right thigh hematoma, stable, H&H without significant change. No signs of expansion. # Goals of care discussion. Given the multiple refusal to interventions and his hesitancy to consider renal replacement therapy should renal function worsened as well as refusing chronic indwelling Dill catheter I offer him to discuss goals of care, he is not interested in changing his CODE STATUS, he continues to be a full code, patient is hopeful that his medical issues will eventually improve, he does not want to discuss palliative approach or hospice services at this time. Disposition: Need to arrange for IV antibiotics, ID consultation RESULTS: CBC. Results from last 7 days Lab Units 04/26/25 0649 04/25/25 0707 04/24/25 0647 WBC AUTO K/mcL 7.1 7.7 8.3 HEMOGLOBIN g/dL 10.8* 10.7* 10.8* HEMATOCRIT % 35.4* 33.5* 34.9* MCV FL 86.3 83.5 84.9 PLATELETS K/mcL 311 350 344 LYMPHS PCT AUTO % 23.7 25.0 26.3 MONO PCT AUTO % 11.4 12.7 9.2 EOS PCT AUTO % 1.3 1.8 1.6 Coag Results from last 7 days Lab Units 04/26/25 0649 INR 1.4 Anti-Xa Hematology Results from last 7 days Lab Units 04/24/25 0647 VITAMIN B 12 pcg/mL 1,231* BMP Results from last 7 days Lab Units 04/26/25 0649 04/25/25 0707 04/24/25 0647 04/23/25 0600 SODIUM mmol/L 137 138 139 140 POTASSIUM mmol/L 4.3 4.5 4.5 4.8 CHLORIDE mmol/L 104 106 106 108 CO2 mmol/L 17* 18* 17* 20* ANION GAP 16* 14* 16* 12* BUN mg/dL 79* 75* 73* 70* CREATININE mg/dL 3.51* 3.38* 3.32* 3.38* CALCIUM mg/dL 8.2* 8.3* 8.4* 8.0* MAGNESIUM mg/dL 1.8* 1.7* -- 1.9 PHOSPHORUS mg/dL 5.3* 4.7* -- -- Cardiac Results from last 7 days Lab Units 04/23/25 0600 BNP pcg/mL 2,137* LFT/other Results from last 7 days Lab Units 04/25/25 0707 04/22/25 0630 ALT unit/L 63* 21 AST unit/L 99* 32 ALK PHOS unit/L 327* 233* BILIRUBIN TOTAL mg/dL 0.6 0.6 BILIRUBIN DIRECT mg/dL -- 0.3 TOTAL PROTEIN g/dL 5.8* 5.5* ALBUMIN g/dL 3.1* 3.1* Metabolic Results from last 7 days Lab Units 04/24/25 0647 CRP mg/dL 3.33* Glucose. Results from last 7 days Lab Units 04/26/25 0649 04/25/25 0707 04/24/25 0647 04/23/25 0600 04/22/25 0630 GLUCOSE mg/dL 95 104* 117* 94 104* Scheduled Medications PRN Medications IV Medications finasteride, 5 mg, Daily furosemide, 40 mg, q8h polyetheylene glycol, 17 g, Nightly senna, 2 tablet, BID sodium chloride, 10 mL, BID tamsulosin, 0.8 mg, Nightly acetaminophen, 650 mg, q6h PRN naloxone, 0.04 mg, PRN ondansetron (ZOFRAN-ODT) disintegrating tablet, 4 mg, q8h PRN Or ondansetron, 4 mg, q8h PRN sodium chloride, 10 mL, PRN SUBJECTIVE : Pain is well-controlled, patient self catheterizing, good diuresis, no nausea or vomiting, shortness of breath with light activities, which is chronic, persistent lower extremity edema, improved compared to admission, no chest pain, no overt bleeding. OBJECTIVE: Vitals: 04/25/25 1920 04/26/25 0314 04/26/25 0600 04/26/25 0835 BP: (!) 113/95 (!) 110/92 (!) 130/94 BP Location: Left arm Left arm Left arm Patient Position: Sitting Lying Lying Pulse: 103 99 104 Resp: 18 18 16 Temp: 36.4 ??C (97.5 ??F) 36.3 ??C (97.4 ??F) TempSrc: Oral Oral Temporal SpO2: 100% 100% 100% Weight: 84.5 kg (186 lb 3.2 oz) Height: Temp (24hrs), Av.4 ??C (97.6 ??F), Min:36.3 ??C (97.4 ??F), Max:36.7 ??C (98 ??F) Intake/Output Summary (Last 24 hours) at 04/26/2025 1032 Last data filed at 04/26/2025 0953 Gross per 24 hour Intake 1190 ml Output 1200 ml Net -10 ml Wt Readings from Last 1 Encounters: 04/26/25 0600 84.5 kg (186 lb 3.2 oz) 04/25/25 0600 85.7 kg (189 lb) 04/24/25 0600 86.8 kg (191 lb 6.4 oz) 04/23/25 1842 86.6 kg (191 lb) PHYSICAL EXAM: Gen: Alert,, NAD CV -RRR no MGR Lungs -CTAB Abd - Soft, non-tender, non-distended Extremities - No LE edema Neuro - AO x3 Imaging: US Extremity Nonvascular Limited Left Narrative: INDICATION: pain Left lower extremity nonvascular limited ultrasound Comparison: US/[place]/SR - US EXT NONVASCULAR LIMITED LT - 04/22/25 15:44 EST Findings: In the medial lower left thigh there is a 5.2 x 2.5 x 6.4 cm hypoechoic collection with internal reticulations. No internal vascularity and no significant increased peripheral vascularity. Collections not significantly changed in size from prior. Impression: No change in medial lower left thigh hematoma. This document has been electronically signed by: Shashi Fleming MD on 04/25/2025 16:48:54 Vascular US duplex lower extremity venous bilateral Narrative: INDICATION: edema Venous duplex ultrasound bilateral lower extremity Comparison: US/[place]/SR - VAS US DUPLEX LOW EXT VENOUS BILAT - 04/22/25 15:21 EST Findings: There is occlusive thrombus again seen within the right popliteal vein. Otherwise, the visualized deep veins are fully compressible with normal Doppler color flow and spectral tracings. No popliteal cyst. Impression: 1. Unchanged occlusive deep vein thrombosis within the right popliteal vein. No other thrombus seen within the right leg. 2. No deep vein thrombosis in the left lower extremity. This document has been electronically signed by: Shashi Fleming MD on 04/25/2025 16:44:54 [x] Code status: Full Code - Default [x] VTE Prophylaxis: Pharmacological contraindicated given hematoma and cranial bleed. [x] Lines, tubes, drains: Straight catheterization intermittently Health Care proxy with Phone number: * YASSINE Romo - 04/25/2025 6:52 PM EST 04/25/251850 Initial Transition Plan Initial Transition Plan Usp Discharge Planning Living Arrangements Homeless Type of Residence Homeless Assistive Devices None Support Systems None Medication Coverage Has Med Coverage Under Insurance Plan Yes Medication Affordability No concerns related to payment for meds Anticipated Discharge Needs DME Needs Four wheeled walker Discipline following for SNF placement Mortgage Protection Specialist Informed Choice Informed Choice Given? Yes Transportation Transportation at discharge Other (comment) (to be determined) Noted pt is a readmission to hospital. Initial assessment completed with patient. Reports currentlyresiding on the streets due to inability to access alf due to need to complete upper bunk to access alf services. Verified there are no current alf beds available at [facility] or [place]. Per nursing, attempting to confirm pt's ability to self catheterize. In lieu of need, medical respite may need to be considered. Pt reports hx utilizing the Living Room for respite stay. Social Work to follow. * Chandan Law MD - 04/25/2025 2:39 PM EST Images from the original note were not included. ROSS PROGRESS NOTE Date: 04/25/2025 Author: Chandan Law MD Patient ID: Gallito Heart is a 64 y.o. male : 1960 MR#: [id number] SUBJECTIVE Subjective chart and EMR reviewed events noted labs and imaging reviewed patient seen and examined in room 532-2 symptoms : , as per RN: pt is too seen earlier ; pt still refusing to get Dill catheter placed andis too weak to self catheterize: was Done by Rn this am (Hansa) No hematuria On IV lasix Still leg edema' no SOB OnIV abcs for UTI Creatinine 3.3 Mag 1.7 Allergies Patient has no known allergies. Current Medications: Scheduled Medications PRN Medications IV Medications cefTRIAXone, 1 g, q24h finasteride, 5 mg, Daily furosemide, 40 mg, q8h polyetheylene glycol, 17 g, Nightly senna, 2 tablet, BID sodium chloride, 10 mL, BID tamsulosin, 0.8 mg, Nightly acetaminophen, 650 mg, q6h PRN naloxone, 0.04 mg, PRN ondansetron (ZOFRAN-ODT) disintegrating tablet, 4 mg, q8h PRN Or ondansetron, 4 mg, q8h PRN sodium chloride, 10 mL, PRN OBJECTIVE Vitals: 04/25/25 0353 04/25/25 0600 04/25/25 0829 04/25/25 0856 BP: (!) 114/96 (!) 114/92 114/84 BP Location: Left arm Right arm Patient Position: Lying Sitting Pulse: 105 106 Resp: 18 20 Temp: 36.7 ??C (98.1 ??F) 35.9 ??C (96.6 ??F) TempSrc: Temporal SpO2: 100% 100% Weight: 85.7 kg (189 lb) Height: BP: 114/84 (04/25 856) Heart Rate: 106 (04/25 829) Temp: 35.9 ??C (96.6 ??F) (04/25 829) Temp Source: Temporal (04/25 829) SpO2: 100 % (04/25 829) I/O last 3 completed shifts: In: 2006 (23.4 mL/kg) [P.O.:1986; I.V.:10 (0.1 mL/kg); IV Piggyback:10] Out: 3151 (36.8 mL/kg) [Urine:3151 (1 mL/kg/hr)] Weight: 85.7 kg I/O this shift: In: 480 [P.O.:480] Out: 1382 [Urine:1382] Physical examination Body mass index is 27.12 kg/m??. General, appears stated age , comfortable , not in apparent pain or distress,signs of muscle loss HEENT,CHAUNCEY neck, Supple chest, limited thoracic excursion, no added sounds, CVS: S1 S2 ausculated abdomen, soft NT , no suprapubic tenderness, n WAFER ABRADING MACHINE TENDER: AO3, NFD, gait not tested Extremities: ++ bilateral leg edema,no calf tenderness Skin : no rashes Psych: mood is stable and normal affect LABS HEMATOLOGY Lab Results Component Value Date WBC 7.7 04/25/2025 HGB 10.7 (L) 04/25/2025 HCT 33.5 (L) 04/25/2025 MCV 83.5 04/25/2025 PLT 350 04/25/2025 CHEMISTRY Lab Results Component Value Date GLUCOSE 104 (H) 04/25/2025 NA 138 04/25/2025 K 4.5 04/25/2025 CO2 18 (L) 04/25/2025 CL 106 04/25/2025 BUN 75 (H) 04/25/2025 CREATININE 3.38 (H) 04/25/2025 EGFR 20 (L) 04/25/2025 CALCIUM 8.3 (L) 04/25/2025 MG 1.7 (L) 04/25/2025 PHOS 4.7 (H) 04/25/2025 ANIONGAP 14 (H) 04/25/2025 Recent Results (from the past week) Culture urine Collection Time: 04/22/25 6:20 AM Specimen: Straight Catheter; Urine Result Value Ref Range Culture, Urine >=100,000 CFU/mL Klebsiella oxytoca (A) Imaging: XR Chest 2 Views Narrative: HISTORY: The patient is a 64-year-old male with urinary retention. FINDINGS: Sitting AP and lateral radiographs of the chest are obtained. Again seen are degenerativedegenerative changes of the thoracic spine, also demonstrated on the prior study performed 04/16/2025. The cardiac silhouette remains borderline enlarged. The aortic knob is calcified. An alveolar inf iltrate is present at the medial aspect of the right lung base, likely in the right lower lobe, worsened since the prior study. Again seen is a small right pleural effusion, stable in size. Mild discoid atelectasis versus linear scarring is present at the left lung, unchanged. Impression: An alveolar infiltrate consistent with pneumonia is present at the medial aspect of thebase of the right lower lobe with, worsened since 04/16/2025. Again seen is a small right pleural effusion, likely associated with the infiltrate. Mild discoid atelectasis versus linear scarring nearthe left lung base is unchanged. Code 91379 -------- FINAL REPORT -------- Dictated By: Chalino Saldaña Dictated Date: 04/23/2025 09:51 ET Assigned Physician: Chalino Saldaña Reviewed and Electronically Signed By: Chalino Saldaña Signed Date: 04/23/2025 09:56 ET Workstation ID: [id number] Transcribed By: Self Edit Transcribed Date: 04/23/2025 09:51 ET No results found for this or any previous visit. ASSESSMENT & PLAN This is a 64-year old man with history of HTN, HFrEF 28% , CKD IIIb-IV, BPH with urinary retention and bilateral hydronephrosis, recurrent R LE DVT (on Eliquis) , stage 4 CKD chronic anemia, noncompliant with medical advice ( declining a Dill insertion), housing instability.,Returned to ED few hours after leaving AMA (on 04/23/25), with same inability to pass urine. Hospital Course: BALWINDER on CKD Stage 4 creatinine currently 3.3 ( baseline creatinine around 3 Volume overloaded, on lasix ON meds for BPH Patient refuse dill and managed to straight cath himself today Daily weight Monitor output Avoid nephrotoxics Seen by renal Refusing the discussion of hemodialysis UTI/ Cystitis In setting of self catheterization Continue IV ceftriaxone urine culture: Klebsiella oxytoca Bilateral Hydronephrosis due to Obstructive uropathy due to BPH with urinary retention bilateral hydro and evidence of some bleed inside left kidney collecting system. Refusing Dill BPH/ Refusing Dill catheter Pt refusing TURP Evaluated by psychiatry for capacity. Patient has capacity Continue on tamsulosin and finasteride Nephrology consult appreciated Pt not a candidate for Prostatic artery embolization as it requires IV contrast which will futher damage his renal fuction and urology consulted-await evaluation at time of this noet Acute on chronic heart failure with reduced ejection fraction TTE performed in March 2025 showed LVEF of 28%, severe global hypokinesis, left atrium severely dilated, severe mitral regurgitation RV systolic function moderately reduced Strict I's and O's Daily weights BNP 2136 Start IV Lasix 40 IV 3 times daily Occlusive R popliteal DVT Incidentally his R LE has an occlusive R popliteal vein. Will NOT restart Eliquis given CT findings of possible bleed inside L kidney and abnormal UA with (+) blood on itm and thigh hematoma Refusing IVC filter Thigh hematoma As above Hb stable 04/25/25 Renal labs stable on LV lasix but still fluid overloaded with massive bilateral leg edema Education re straight cath by urology (refusing dill) Keep IV abcs for UTI, fup final culture IV lasix US: medial thigh hematoma , stable Repeat Venous duplex Am labs Sw re placement VTE Prophylaxis: no chem PPX due to CT findings of possible bleed inside L kidney and abnormal UA with (+) blood on and thigh hematoma Code status: Full Code - Default Disposition:pending Discussed with: pt, nursing, nephrology, urology, case Mx, SW Total time spent 35 minutes doing reviewing the electronic medical record , interviewing patient, gathering information, performing physical exam, formulating plan, explaining management plan to patient, coordinating care with RN and case managmenet, documentation and placing orders. This dictation was performed using [email or web address] speech recognition software. If you have questions, please do not hesitate to reach me on [facility] system or call our hospital at [phone] * Daria Christianson MD - 04/25/2025 2:08 PM EST Images from the original note were not included. Progress Note CHIEF COMPLAINT F/u SUBJECTIVE Patient seen and examined Breathing better MEDICAL HISTORY Medical History[1] MEDICATIONS MEDSSCHEDULED[2] MEDSPRN[3] MEDSCONTINUOUS[4] OBJECTIVE Vital signs in last 24 hours: Visit Vitals BP 114/84 (BP Location: Right arm, Patient Position: Sitting) Pulse 106 Temp 35.9 ??C (96.6 ??F) (Temporal) Resp 20 Intake/Output last 24 hours: Intake/Output Summary (Last 24 hours) at 04/25/2025 1408 Last data filed at 04/25/2025 1404 Gross per 24 hour Intake 1337 ml Output 3333 ml Net -1996 ml Weights: Admission Weight: Weight: 86.6 kg (191 lb) Wt Readings from Last 3 Encounters: 04/25/25 85.7 kg (189 lb) 04/23/25 86.7 kg (191 lb 3.2 oz) 04/16/25 83.9 kg (185 lb) Physical Exam: General: No acute distress HEENT: Normocephalic, atraumatic, anicteric Cardiovascular: S1 S2 normal Respiratory: unlabored Gl: soft non-distended Extremities: No cyanosis Neurological: Alert Integumentary: no rash Psych: Calm, cooperative LABS Results from last 7 days Lab Units 04/25/25 0707 04/24/25 0647 04/23/25 0600 WBC AUTO K/mcL 7.7 8.3 7.3 HEMOGLOBIN g/dL 10.7* 10.8* 10.3* HEMATOCRIT % 33.5* 34.9* 33.2* MCV FL 83.5 84.9 84.1 PLATELETS K/mcL 350 344 287 Results from last 7 days Lab Units 04/25/25 0707 04/24/25 0647 04/23/25 0600 CREATININE mg/dL 3.38* 3.32* 3.38* BUN mg/dL 75* 73* 70* SODIUM mmol/L 138 139 140 POTASSIUM mmol/L 4.5 4.5 4.8 CHLORIDE mmol/L 106 106 108 CO2 mmol/L 18* 17* 20* Phosphorus Date Value Ref Range Status 04/25/2025 4.7 (H) 2.5 - 4.5 mg/dL Final 03/24/2025 4.7 (H) 2.5 - 4.5 mg/dL Final 03/23/2025 5.0 (H) 2.5 - 4.5 mg/dL Final No results found for: IRON , TIBC , FERRITIN No results found for: COLORUA , CLARITYUA , SPECGRAVUA , PHUA , PROTUA , GLUCOSEUA , KETONESUA , BILIRUBINUA , BLOODUA , UROBILINOGUA , NITRITEUA IMPRESSION and PLAN 64 year old male with history of hypertension, 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 He was diagnosied with occlusive right popliteal DVT and eliquis was held with a possible bleeding into his left kidney and patient refuse IVC. CT without contrast :KIDNEYS/URETERS: Mild bilateral hydronephrosis and hydroureter. No renal or ureteral calculi. Hyperdensity in the lower pole calyces and left renal pelvis, new from prior. 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 His baseline creatinine is about 3-4 He was seen in [facility] early Mar for similar issue: heart failure exacerbation and urinary retention Recs: Creatinine currently 3.1 ( baseline about 3-4) Volume overloaded, on lasix ON meds for BPH Patient refuse dill and managed to straight cath himself today Daily weight Monitor output Daria Christianson MD [1] Past Medical History: Diagnosis Date DVT (deep venous thrombosis) ([facility] V24, CMS/HCC V28) Hypertension [2] cefTRIAXone, 1 g, intravenous, q24h finasteride, 5 mg, oral, Daily furosemide, 40 mg, intravenous, q8h polyetheylene glycol, 17 g, oral, Nightly senna, 2 tablet, oral, BID sodium chloride, 10 mL, intravenous, BID tamsulosin, 0.8 mg, oral, Nightly [3] PRN medications: acetaminophen, naloxone, ondansetron (ZOFRAN-ODT) disintegrating tablet ORondansetron, Insert peripheral IV AND Maintain IV access AND Saline lock IV AND sodium chloride AND sodium chloride [4] * Chandan Law MD - 04/24/2025 3:56 PM EST Chart and EMR reviewed overnight events reviewed case discussed with the floor nurse Symptoms are Ambulation Pt signed out AMA yeserday Returned with Balwinder , metabolic acidosis with urinary retention required straight cath , creatinine 3.2( From 3.8) Still Refusing dill O/e not in distress no suprapubic tenderness Aox3 NFD Bilateral non pitting leg edema lindsay perez; dr Meghan Wyatt psych dr Duncan Still needs education re straight cath and o be seen by urololgy Continue flomax and proscar Diuresis Am labs * Stacy Orlando RN - 04/24/2025 1:22 AM EST ED RN HANDOFF (All Prather Below Must Be Completed) Reason/Diagnosis for Admission: urinary retention, PNA Type of Admission: [x] Medsurg, [] Telemetry Already in a Hospital Bed: [] Yes / [x] No Room Considerations/Precautions (ex: fever, diarrhea, or any infectious concerns): [] Yes / [x] No Tool Checker: [] Yes / [x] No If YES, Cardiac Rhythm: [] NSR, [] SB, [] ST, [] A-FIB, [] A-Flutter, [] Pacemaker, [] 1st Degree HB, [] 2nd Degree HB, [] 3rd Degree HB Reason for Tool Checker: O2 []Yes /[x]No If YES, how many Liters: VS: Visit Vitals BP 114/89 (BP Location: Left arm, Patient Position: Sitting) Pulse 106 Temp 36.3 ??C (97.3 ??F) (Oral) Resp 20 Ht 1.778 m (70 ) Wt 86.6 kg (191 lb) SpO2 100% BMI 27.41 kg/m?? Smoking Status Former BSA 2.05 m?? Current Mental Status: A/O x [x]4, []3, []2, []1 IV Access: [] Yes / [x] No Field IV present: [] Yes / [] No Hx of Violence: [] Yes / [] No / [] Unknown Current Ambulation Status: PIVOT TO WHEELCHAIR Fall Risk:[x] Yes / [] No Yellow Bracelet Applied [x] Yes / [] No Yellow Socks Applied [x] Yes / [] No Patient Belongings inventoried and BL completed: [] Yes / [] No Patient belongings stored in the security closet: [] Yes (If Yes please supply Security bag #): [x] No Patient Medications stored in Pharmacy: [] Yes (If Yes please supply Medication Security bag #): [x] No ED Summary of Care: Left AMA morning of 04/23 after being inpatient. Came back for urinary retention. Per previous ED RN, refused straight cath initially. Was able to void 200mL of dark red urine andthen was cathed for 500mL. Bilat edema noted. Upon previous admission, of note is elevated BNP and abnormal CT scan, both from 04/23. CT Scan results: IMPRESSION: An alveolar infiltrate consistent with pneumonia is present at the medial aspect of the base of theright lower lobe with, worsened since 04/16/2025. Again seen is a small right pleural effusion, likely associated with the infiltrate. Mild discoid atelectasis versus linear scarring near the left lung base is unchanged. * Danuta Saleh RN - 04/23/2025 8:16 PM EST Pt brought back to a room from the . Pt stating they told me I could go back to my room referring to inpatient bed he recently left. Pt stating I'm not going to waste that bed' (stretcher) insisting he is to be brought back upstairs. To discuss with battery rechargerROLY Saleh RN 04/23/252018 * Micki Hayes MD - 04/23/2025 6:54 PM EST Provider Rapid Medical Exam - Initial Evaluation HPI Came back to the ED after leaving AMA today from inpatient for urinary retention. Has >500mL in bladder but declined straight cath or Dill in triage. Would prefer to wait until he is roomed and can get more comfortable. Brief Physical Exam GENERAL: Appears chronically ill and uncomfortable. HEENT: Normocephalic and atraumatic. RESP: No respiratory distress MUSCULOSKELETAL: No gross deformities. NEUROLOGIC: Awake and Alert. I have screened the patient for an acute medical condition and have placed orders for the patient'sdiagnosis and treatment. * Micki Ramirez RN - 04/23/2025 6:40 PM EST He was inpatient here for urinary retention due to BPH but left AMA today because he wanted chap stick and some inhaler and couldn't get any. He has checked back in to continue his treatment. He states that he was getting catheterized every 6 hours. He states that he doesn't feel like his bladder is full. A bladder scan was just done and he has greater than 499 currently. He is refusing to be straight cathed. * Micki Hayes MD - 04/23/2025 6:36 PM EST EMERGENCY DEPARTMENT Provider Note Room: [id number] Patient: Gallito Heart PCP: No Pcp Physician Patient : 1960 Patient Department: [facility] EMERGENCY [address] [place] [address] Dept: [phone] Triage Chief Complaint: Urinary Retention (Left AMA from room 561 about 2 hours ago. Now back for same complaint. ) History of Present Illness: 64-year-old male with housing insecurity, BPH/prostatic megaly, chronic urinary retention, obstructive uropathy presenting to the emergency department with urinary retention. Patient left our inpatient unit today AGAINST MEDICAL ADVICE because he wanted to obtain Chapstick and our facility do not have it. He returns now stating he wants to be readmitted and catheterized again. Having some lower abdominal discomfort but states it is manageable. ED Course / Medications given / MDM: 64-year-old male presenting with urinary retention after leaving AMA for the same. He appears chronically ill but in no acute distress. Declining to be straight cathed in triage despite having over 500 mL of urine in his bladder, states he can wait until he is roomed and he is not concern for bladder rupture. On reevaluation, patient is becoming more more uncomfortable, requesting to be straight cathed. Repeat bladder scan shows 667mL. I discussed with patient that we would prefer to for put christopher Dill but he absolutely declines this, tells me that there was a plan in place for him to continue to get straight cath and then to be discharged with straight cath supplies. Per chart review, declining Dill is nothing new, he was seen by psych and deemed to have capacity. My concern is that he is not currently established with urology and so will not have anyone to follow-up with to continue to obtain straight cath supplies even if we are able to provide a temporary supply. Of note, patientbecomes very agitated very quickly, accusing nursing of lying to him, accusing myself of not knowing what I am talking about, called 911 to try to obtain a ride to a different hospital. If he is amenable to straight cath, we will empty his bladder which will hopefully help with agitation. He was able to spontaneously void about 200 mL of laurie hematuria. He is amenable to straight cath. Discussedwith our hospitalist, who has accepted the patient for admission. Clinical Impressions as of 04/24/25 0450 Urinary retention Obstructive uropathy Gross hematuria Medications tamsulosin (FLOMAX) 24 hr capsule 0.8 mg (0.8 mg oral Given 04/24/25 0241) acetaminophen (TYLENOL) tablet 650 mg (has no administration in time range) cefTRIAXone (ROCEPHIN) 1 g in sterile water 10 mL IV syringe (has no administration in time range) finasteride (PROSCAR) tablet 5 mg (has no administration in time range) furosemide (LASIX) injection 40 mg (40 mg intravenous Given 04/24/25 0259) naloxone (NARCAN) injection 0.04 mg (has no administration in time range) polyethylene glycol (MIRALAX) packet 17 g (17 g oral Not Given 04/24/25 0305) senna (SENOKOT) tablet 17.2 mg (17.2 mg oral Not Given 04/24/25 0306) sodium chloride 0.9 % flush 10 mL (10 mL intravenous Given 04/24/25 0300) And sodium chloride 0.9 % flush 10 mL (has no administration in time range) ondansetron ODT (ZOFRAN-ODT) disintegrating tablet 4 mg (has no administration in time range) Or ondansetron (PF) (ZOFRAN) injection 4 mg (has no administration in time range) Clinical Impression(s): Final diagnoses: [R33.9] Urinary retention [N13.9] Obstructive uropathy [R31.0] Gross hematuria Disposition: Admit to Inpatient Physical Examination: Temp: 36.1 ??C (97 ??F) BP: 109/89 Heart Rate: 109 Resp: 16 SpO2: 100 % Nursing notes and vitals reviewed. Constitutional: Well-developed, well-nourished, appears chronically ill. Head: Normocephalic and atraumatic. Eyes: Conjunctivae and EOM are normal. Neck: Normal range of motion. No tracheal deviation present. Cardiovascular: Normal rate, extremities warm and well-perfused. Pulmonary/Chest: Effort normal. No respiratory distress. Abdominal: Nondistended. Musculoskeletal: Normal range of motion. No deformity. Neurological: Alert. GCS 15. Moving all 4 extremities equally and spontaneously. Skin: Warm and dry. Psych: Easily and frequently agitated, verbally aggressive, argumentative, and accusatory. Lab & Imaging Results: Encounter Date: 04/22/25 ECG 12 lead Result Value Ventricular Rate ECG 94 Atrial Rate 94 P-R Interval 168 QRS Duration 100 Q-T Interval 390 QTc 487 P Wave [place] 44 R [place] 28 T [place] 55 ECG Interpretation Normal sinus rhythm Prolonged QT Abnormal ECG When compared with ECG of 16-APR-2025 11:54, Nonspecific T wave abnormality no longer evident in Lateral leads Confirmed by CACHORRO MIX ([id number]) on 04/23/2025 8:27:35 AM *Note: Due to a large number of results and/or encounters for the requested time period, some results have not been displayed. A complete set of results can be found in Results Review. If an EKG was performed on today's visit and is documented above I independently interpreted/read the EKG as noted above at the time of service as above. Labs Reviewed BASIC METABOLIC PANEL CBC AND DIFFERENTIAL Narrative: The following orders were created for panel order CBC and differential. Procedure Abnormality Status --------- ------ CBC auto differential[[id number]] Please view results for these tests on the individual orders. CBC WITH AUTO DIFFERENTIAL No orders to display I personally reviewed the patient's images and agree with radiologist interpretation unless otherwise noted here or in ED course or MDM section Procedures: Procedures Current Discharge Medication List CONTINUE these medications which have NOT CHANGED Details apixaban (ELIQUIS) 5 mg tablet Take 1 tablet (5 mg total) by mouth 2 (two) times a day. furosemide (LASIX) 20 mg tablet Take 1 tablet (20 mg total) by mouth 1 (one) time each day. tamsulosin (FLOMAX) 0.4 mg 24 hr capsule Take 2 capsules (0.8 mg total) by mouth 1 (one) time each day. Capsules should be taken 30 minutes following the same meal each day. Allergies: Patient has no known allergies. Medical History[1] Surgical History[2] Social History[3] Micki Kokkinos, MD 04/23/25 6512 [1] Past Medical History: Diagnosis Date DVT (deep venous thrombosis) ([facility] V24, [facility] V28) Hypertension [2] History reviewed. No pertinent surgical history. [3] Social History Tobacco Use Smoking status: Former Types: Cigarettes Smokeless tobacco: Never Substance Use Topics Alcohol use: Not Currently Drug use: Yes Types: Marijuana/Cannabis Micki Hayes MD 04/24/25 0451 documented in this encounter H&P Notes * FLORENCIO Jenkins - 04/24/2025 1:47 AM EST Images from the original note were not included. ROSS HISTORY AND PHYSICAL Please contact author [FLORENCIO Mcfarlane] via [employer]. Patient: Gallito Heart Admission Date/Time: 04/23/2025 8:11 PM : 1960 [64 y.o.] Patient's PCP: No Pcp Physician Attending Provider: Cresencio Farias MD CHIEF COMPLAINT: Difficulty urinating - presenting later in the day after leaving AMA HPI: 64-year-old male with PMH of hypertension, CKD, prostatomegaly, BPH, HFrEF 28%, anemia of chronic disease, history of right lower extremity DVT x 2 on Eliquis, and recent admissions for obstructive uropathy with urinary retention presents to the ED after leaving AGAINST MEDICAL ADVICE earlier yesterday on 04/23. He presented again to the ED at 4 PM with ongoing symptoms. Patient has had ongoing issues with urinary output, refusing Dill catheter. He states that he is on the program , when asked what this means he states that he is okay with catheterizing and self catheterizing at home every few hours but states there is too much pain with an indwelling Dill catheter. He expresses concern with an indwelling Dill catheter regarding trauma, bleeding and pain. Of note, on his recent admission that he was found to have occlusive right popliteal DVT, Eliquis was not continued at the time due to possible bleed inside the left kidney and urine noted in his UA. There is discussion about IVCfilter which patient declined, I discussed this again with him and he states I am not subjecting myself to that, 90% chance that is all for nothing . He also states that he had a right lower extremity blood clot that was treated with Celebrex about 5 years ago, also states Some people have clots and do not even know . . He denies any fever, chills, chest pain, shortness of breath. He does report bilateral lower extremity swelling. He states he had difficulty breathing on last admission but today I do not even hear the fluid in my lungs . I discussed with patient the importance of every 4 hours bladder scans since he is on IV Lasix and we need close monitoring of his urine output in the setting of his heart failure, he seems to agree.However, when the nurse went to BladderScan him for >500 he refused to straight cath. On admission vitals are stable 117/76, pulse 102, 96% on room air, respiratory rate 16, afebrile Labs: WBC 7.3, hemoglobin 10.3, hematocrit 33.2, CO2 20, anion gap 12, BUN 70, creatinine 3.38, GFR20, magnesium 1.9. BNP 2137. PSA 1.26. UA from yesterday 04/22 showing + protein, blood, WBC >100, RBC >100. Urine culture pending. Chest x-ray from 04/23 showing an alveolar infiltrate consistent with pneumonia is present in the medial aspect of the base in the right lower lobe, worsened since 1121. Again seen is a small right pleural effusion, likely associated with an infiltrate. Mild discoid atelectasis versus linear scarring near the left lung base is unchanged. Right lower extremity US showing occlusive thrombus in the right popliteal vein Left lower extremity US showing left lower medial thigh subcutaneous hematoma measuring [address] chest without contrast showing moderate right and small left pleural effusions with adjacent atelectasis. Biatrial and biventricular dilation. Diffuse anasarca. Correlate for congestive heart failure/volume overload. CT abdomen/pelvis - Enlarged prostate with diffuse bladder wall thickening which may be related to chronic bladder outlet obstruction and/or cystitis. Distended bladder with mild bilateral hydronephrosis. Correlate for urinary retention. Hyperdensity within the left lower pole calyces and left renal pelvis compatible with blood products, new compared to 03/21/2025. ROS Negative except noted in HPI ALLERGIES: No known allergies HOME MEDICATIONS: From recent admission on 04/22 - patient left AMA earlier in the day on 04/23 Eliquis 5 mg twice a day Furosemide 20 mg daily Tamsulosin 0.8 mg at bedtime PAST MEDICAL & SURGICAL HISTORY: Hypertension CKD IIIb-IV Prostatomegaly/BPH Lower extremity cellulitis Right lower extremity DVT x 2 Biventricular heart failure with reduced LVEF at 28% on Echo from 03/2025 Severe mitral regurgitation Anemia of chronic disease Previous alcohol abuse Noncompliant with medications/ medical recommendations SOCIAL HISTORY: Homeless, usually walks independently Denies tobacco use Former heavy drinker; reports sobriety x 5 years No hx of IVDU Intermittent marijuana use FAMILY HISTORY: Father from complications of colorectal cancer PHYSICAL EXAM: GENERAL: Thin, chronically ill-appearing 64-year-old male sitting upright in bed in no acute distress HEENT: Normocephalic. EOM intact. Pupils equal round and reactive to light. Dry MM. CARDIAC: RRR. No murmur, rubs, gallops. Diffuse anasarca PULMONARY: Diminished to bilateral lower lobes. No increased work of breathing or shortness of breath. Speaking in full sentences. No significant wheeze/rales. GI: Slightly firm/distended, nontender to palpation, hypoactive bowel sounds x4. : No CVA or suprapubic tenderness. MSK: Significant bilateral lower extremity swelling up to the thighs with pitting edema. Generalized weakness. Bilateral upper extremity muscle wasting. NEURO: Sensation and light touch intact bilaterally. PSYCH: Pleasant, A&Ox3. RESULTS/IMAGING: Echocardiogram from 03/30/25 at [facility] - Severely dilated LV with an EF of 28%, with severe global hypokinesis, left atrium severely dilated. Severe mitral regurgitation, RV moderately to severely dilated with RV systolic function mild to moderately reduced. Pulmonary artery pressure is high at 45-50. ASSESSMENT AND PLAN: Bilateral obstructive uropathy due to BPH with urinary retention Complicated UTI, male Dill catheter offered but patient declined. He is agreeable to Q4h bladder scans and straight caths. - IV Ceftriaxone 1g Q24h - Finasteride 5 mg daily - Tamsulosin 0.8 mg at bedtime - Urology and Nephrology consult - Follow up urine culture - AM labs BALWINDER on CKD Elevated due to above, patient also appears to be in acute CHF/volume overload Recent creatinine from February was elevated up to 4.4 Today - BUN 70, creatinine 3.38, GFR 20 Continue IV diuretics, trend, follow up w/ renal tomorrow Acute on Chronic HFrEF Patient with bilateral moderate pleural effusions on imaging and and diffuse anasarca on exam BNP is 2137 on admission Recent echocardiogram from [facility] showing EF of 28% IV Lasix 40 mg Q8h Strict I&Os Daily weight Fluid restriction - 1500cc Occlusive R popliteal DVT On this recent admission there was concern regarding Eliquis due to possible bleed inside left kidney and blood noted in UA. There was discussion about IVC filter which was declined yesterday and today. Vascular consult Left lower medial thigh subcutaneous hematoma measuring 6 x 5 cm On recent US from 04/22. H&H stable. Left kidney bleed? CT abdomen and pelvis showed hyper density within the left lower pole calyces and left renal pelviscompatible with blood products. Hgb has remained unchanged for ~1 month in the range of 9.7-10 Nephrology consult pending, appreciate input Complicated hospitalizations Patient has been cleared by psychiatry for capacity on 04/23, however continues to decline recommended treatment and interventions resulting in complicated hospitalizations and clinical decline. Social work/case management consult FULL CODE HCP: Michel Heart (brother): [phone] PPX: Pneumoboots, holding off on chemical prophylaxis for now Case and plan discussed with: Dr. Farias Cosigned by Cresencio Farias MD at 04/25/2025 3:48 AM EST Associated attestation - Cresencio Farias MD - 04/25/2025 3:48 AM EST This is a split/shared visit with FLORENCIO Jenkins. I personally performed the medical decision making (MDM) for the care of this patient on 04/24/2025s documented below 64-year-old male with history of heart failure reduced ejection fraction LVEF 28%, hypertension, deep vein thrombosis currently on apixaban anticoagulation, chronic kidney disease stage 4, and obstructive uropathy secondary to prostatomegaly requiring straight catheterization returns to the Emergency Department requesting readmission to continue previous treatment for his acute on chronic heart failure with reduced ejection fraction and acute on chronic renal failure secondary to obstructive uropathy. After discussion with the ER provider, the patient will be placed in observation. He will resume his prior treatment with scheduled straight catheterizations (he refuses Dill repeatedly). He will receive IV furosemide for his acute on chronic heart failure. Nephrology be consulted for assistance in management of his acute on chronic renal failure. Social work has been consulted to assist in obtaining catheters for discharge and due to his housing instability. Management of additional chronic medical problems as below. Cresencio Farias MD 04/25/25 3:41 AM EST documented in this encounter Consult Notes * Kanika Sow MD - 04/26/2025 6:43 PM ESTAssociated Order(s): IP CONSULT TO INFECTIOUS DISEASES Infectious Diseases Consult 04/26/25 No ref. provider found No Pcp Physician Reason for Consultation: ESBL UTI Source of history: chart review and the patient Consult placed by: Rafita Wong MD History Of Present Illness (includes Chief Complaint): Gallito Heart is a 64 y.o. male who has a past medical history of DVT (deep venous thrombosis) ([facility] V24, [facility] V28) and Hypertension.. The patient was admitted to the hospital on 04/23/2025 for difficulty urinating difficulty urinating. The patient was recently found to have obstructive uropathy due to BPH in February and was recommended a Dill catheter as he had developed bilateral hydronephrosis and worsening BALWINDER. The patient refused this and opted for straight cath instead. He presented back to the hospital due to worsening BALWINDER and having difficulty with urinary retention on 04/22.He left AMA on 04/23 but then presented back to the ER the same day due to continued difficulty with his urination. Of note, he had refused Dill catheter at every hospitalization. His initial urine cultures were negative for 04/16. Urine culture on 04/22 positive for ESBL Klebsiella. The patient again has bilateral hydronephrosis and concerns for cystitis and enlarged prostate. He continues to refuse Dill catheter and wishes to self cath. He was started on meropenem. ID service has been consulted for management during this patient's hospital stay. Past Medical History: Medical History[1] Surgical History: Surgical History[2] Family History: Family History[3] Social History: Social History[4] Allergies: Patient has no known allergies. Home Medications: Prior to Admission medications Medication Sig Start Date End Date Taking? Authorizing Provider apixaban (ELIQUIS) 5 mg tablet Take 1 tablet (5 mg total) by mouth 2 (two) times a day. Historical Provider, furosemide (LASIX) 20 mg tablet Take 1 tablet (20 mg total) by mouth 1 (one) time each day. Historical Provider, tamsulosin (FLOMAX) 0.4 mg 24 hr capsule Take 2 capsules (0.8 mg total) by mouth 1 (one) time each day. Capsules should be taken 30 minutes following the same meal each day. Historical Provider, Current Medications: Current Medications[5] MEDSPRN[6] ROS: Review of Systems Constitutional: Negative. HENT: Negative. Respiratory: Negative. Cardiovascular: Negative. Gastrointestinal: Negative. Genitourinary: Negative. Musculoskeletal: Negative. Skin: Negative. Neurological: Negative. Vital signs for last 24 hours: Temp: 36.6 ??C (97.8 ??F) (04/26 1437) Heart Rate: 104 (04/26 1437) Resp: 16 (04/26 1437) BP: 124/96 (04/26 1437) Intake/Output this shift: I/O this shift: In: 53 [I.V.:3; IV Piggyback:50] Out: 1500 [Urine:1500] Physicial Exam Physical Exam Vitals reviewed. Constitutional: Appearance: Normal appearance. HENT: Head: Normocephalic and atraumatic. Eyes: General: No scleral icterus. Cardiovascular: Rate and Rhythm: Normal rate and regular rhythm. Heart sounds: No murmur heard. No friction rub. No gallop. Pulmonary: Effort: No respiratory distress. Breath sounds: No stridor. No wheezing or rhonchi. Abdominal: General: There is no distension. Tenderness: There is no abdominal tenderness. There is no guarding or rebound. Musculoskeletal: General: No deformity or signs of injury. Skin: Coloration: Skin is not jaundiced or pale. Neurological: Mental Status: He is alert. Results: Lab Admission on 04/23/2025 Component Date Value Sodium 04/24/2025 139 Potassium 04/24/2025 4.5 Chloride 04/24/2025 106 CO2 04/24/2025 17 (L) Anion Gap 04/24/2025 16 (H) Glucose 04/24/2025 117 (H) BUN 04/24/2025 73 (H) Creatinine 04/24/2025 3.32 (H) eGFR 04/24/2025 20 (L) BUN/Creatinine Ratio 04/24/2025 22.0 Calcium 04/24/2025 8.4 (L) WBC 04/24/2025 8.3 RBC 04/24/2025 4.10 (L) Hemoglobin 04/24/2025 10.8 (L) Hematocrit 04/24/2025 34.9 (L) MCV 04/24/2025 84.9 MCH 04/24/2025 26.3 (L) MCHC 04/24/2025 30.9 (L) RDW 04/24/2025 15.8 (H) Platelets 04/24/2025 344 MPV 04/24/2025 10.4 NRBC 04/24/2025 0.0 NRBC Absolute 04/24/2025 0.00 Neutrophils Relative 04/24/2025 62.1 Lymphocytes Relative 04/24/2025 26.3 Monocytes Relative 04/24/2025 9.2 Eosinophils Relative 04/24/2025 1.6 Basophils Relative 04/24/2025 0.6 Immature Granulocytes Re* 04/24/2025 0.2 Neutrophils Absolute 04/24/2025 5.14 Lymphocytes Absolute 04/24/2025 2.18 Monocytes Absolute 04/24/2025 0.76 Eosinophils Absolute 04/24/2025 0.13 Basophils Absolute 04/24/2025 0.05 Immature Granulocytes Ab* 04/24/2025 0.02 Vitamin B-12 04/24/2025 1,231 (H) T. Pallidum Antibodies 04/24/2025 Negative C-Reactive Protein 04/24/2025 3.33 (H) Sodium 04/25/2025 138 Potassium 04/25/2025 4.5 Chloride 04/25/2025 106 CO2 04/25/2025 18 (L) Anion Gap 04/25/2025 14 (H) Glucose 04/25/2025 104 (H) BUN 04/25/2025 75 (H) Creatinine 04/25/2025 3.38 (H) eGFR 04/25/2025 20 (L) BUN/Creatinine Ratio 04/25/2025 22.2 Calcium 04/25/2025 8.3 (L) AST (SGOT) 04/25/2025 99 (H) ALT (SGPT) 04/25/2025 63 (H) Alkaline Phosphatase 04/25/2025 327 (H) Total Protein 04/25/2025 5.8 (L) Albumin 04/25/2025 3.1 (L) Total Bilirubin 04/25/2025 0.6 Magnesium 04/25/2025 1.7 (L) Phosphorus 04/25/2025 4.7 (H) WBC 04/25/2025 7.7 RBC 04/25/2025 4.00 (L) Hemoglobin 04/25/2025 10.7 (L) Hematocrit 04/25/2025 33.5 (L) MCV 04/25/2025 83.5 MCH 04/25/2025 26.7 (L) MCHC 04/25/2025 31.9 (L) RDW 04/25/2025 15.7 (H) Platelets 04/25/2025 350 MPV 04/25/2025 10.7 NRBC 04/25/2025 0.0 NRBC Absolute 04/25/2025 0.00 Neutrophils Relative 04/25/2025 59.5 Lymphocytes Relative 04/25/2025 25.0 Monocytes Relative 04/25/2025 12.7 Eosinophils Relative 04/25/2025 1.8 Basophils Relative 04/25/2025 0.7 Immature Granulocytes Re* 04/25/2025 0.3 Neutrophils Absolute 04/25/2025 4.58 Lymphocytes Absolute 04/25/2025 1.92 Monocytes Absolute 04/25/2025 0.98 Eosinophils Absolute 04/25/2025 0.14 Basophils Absolute 04/25/2025 0.05 Immature Granulocytes Ab* 04/25/2025 0.02 Sodium 04/26/2025 137 Potassium 04/26/2025 4.3 Chloride 04/26/2025 104 CO2 04/26/2025 17 (L) Anion Gap 04/26/2025 16 (H) Glucose 04/26/2025 95 BUN 04/26/2025 79 (H) Creatinine 04/26/2025 3.51 (H) eGFR 04/26/2025 19 (L) BUN/Creatinine Ratio 04/26/2025 22.5 Calcium 04/26/2025 8.2 (L) Phosphorus 04/26/2025 5.3 (H) Magnesium 04/26/2025 1.8 (L) Protime 04/26/2025 17.9 (H) INR 04/26/2025 1.4 WBC 04/26/2025 7.1 RBC 04/26/2025 4.10 (L) Hemoglobin 04/26/2025 10.8 (L) Hematocrit 04/26/2025 35.4 (L) MCV 04/26/2025 86.3 MCH 04/26/2025 26.3 (L) MCHC 04/26/2025 30.5 (L) RDW 04/26/2025 15.7 (H) Platelets 04/26/2025 311 MPV 04/26/2025 10.4 NRBC 04/26/2025 0.0 NRBC Absolute 04/26/2025 0.00 Neutrophils Relative 04/26/2025 62.3 Lymphocytes Relative 04/26/2025 23.7 Monocytes Relative 04/26/2025 11.4 Eosinophils Relative 04/26/2025 1.3 Basophils Relative 04/26/2025 0.7 Immature Granulocytes Re* 04/26/2025 0.6 Neutrophils Absolute 04/26/2025 4.41 Lymphocytes Absolute 04/26/2025 1.68 Monocytes Absolute 04/26/2025 0.81 Eosinophils Absolute 04/26/2025 0.09 Basophils Absolute 04/26/2025 0.05 Immature Granulocytes Ab* 04/26/2025 0.04 (H) Lab Results Component Value Date URINECX >=100,000 CFU/mL Klebsiella oxytoca ESBL (A) 04/22/2025 Recent Results (from the past week) Culture urine Collection Time: 04/22/25 6:20 AM Specimen: Straight Catheter; Urine Result Value Ref Range Culture, Urine >=100,000 CFU/mL Klebsiella oxytoca ESBL (A) Susceptibility Klebsiella oxytoca ESBL - ASH Amoxicillin/Clavulanate Resistant ug/ml Ampicillin/Sulbactam Resistant ug/ml Cefoxitin Susceptible ug/ml Ceftazidime Susceptible ug/ml Ceftriaxone Resistant ug/ml Cefepime Susceptible ug/ml Meropenem Susceptible ug/ml Amikacin Susceptible ug/ml Gentamicin Susceptible ug/ml Ciprofloxacin Susceptible ug/ml Levofloxacin Susceptible ug/ml Nitrofurantoin Susceptible ug/ml Trimethoprim/Sulfamethoxazole Susceptible ug/ml Radiology: US Extremity Nonvascular Limited Left Narrative: INDICATION: pain Left lower extremity nonvascular limited ultrasound Comparison: US/[place]/SR - US EXT NONVASCULAR LIMITED LT - 04/22/25 15:44 EST Findings: In the medial lower left thigh there is a 5.2 x 2.5 x 6.4 cm hypoechoic collection with internal reticulations. No internal vascularity and no significant increased peripheral vascularity. Collections not significantly changed in size from prior. Impression: No change in medial lower left thigh hematoma. This document has been electronically signed by: Shashi Fleming MD on 04/25/2025 16:48:54 Vascular US duplex lower extremity venous bilateral Narrative: INDICATION: edema Venous duplex ultrasound bilateral lower extremity Comparison: US/[place]/SR - VAS US DUPLEX LOW EXT VENOUS BILAT - 04/22/25 15:21 EST Findings: There is occlusive thrombus again seen within the right popliteal vein. Otherwise, the visualized deep veins are fully compressible with normal Doppler color flow and spectral tracings. No popliteal cyst. Impression: 1. Unchanged occlusive deep vein thrombosis within the right popliteal vein. No other thrombus seen within the right leg. 2. No deep vein thrombosis in the left lower extremity. This document has been electronically signed by: Shashi Fleming MD on 04/25/2025 16:44:54 Assessment/Plan Gallito Heart is a 64 y.o. male who has a past medical history of DVT (deep venous thrombosis) ([facility]/HCC V24, [facility]/HCC V28) and Hypertension.. The patient was admitted to the hospital on 04/23/2025 for difficulty urinating difficulty urinating. The patient was recently found to have obstructive uropathy due to BPH in February and was recommended a Dill catheter as he had developed bilateral hydronephrosis and worsening BALWINDER. The patient refused this and opted for straight cath instead. He presented back to the hospital due to worsening BALWINDER and having difficulty with urinary retention on 04/22.He left AMA on 04/23 but then presented back to the ER the same day due to continued difficulty with his urination. Of note, he had refused Dill catheter at every hospitalization. His initial urine cultures were negative for 04/16. Urine culture on 04/22 positive for ESBL Klebsiella. The patient again has bilateral hydronephrosis and concerns for cystitis and enlarged prostate. He continues to refuse Dill catheter and wishes to self cath. He was started on meropenem. ID service has been consulted for management during this patient's hospital stay. 1. ESBL Klebsiella associated complicated UTI 2 obstructive uropathy 3. BALWINDER on CKD The patient continues to refuse Dill catheter, insists on self-catheterization Has BALWINDER and QTc prolonged, does not have appropriate p.o. options for his UTI Recommend 7 days of IV antibiotics Meropenem dose adjusted to 0.5 g every 12 based on renal function Recommendations: 1. Can continue meropenem 0.5 g every 12H based on current renal function to end on 05/03, if going home can be transition to IV ertapenem for ease of administration 0.5 g every 24H based on renal function, same end of treatment 05/03, if going to SNF then can continue meropenem ID to sign off I personally spent 61 minutes in this encounter. This included performing a detailed chart review, reviewing and independently interpreting labs and other tests ordered by other providers, performinga history and physical, counseling the patient/family, discussing the case with primary team , performing complex medical decision making, coordinating his/her/their plan of care and placing orders, the pt has a highly complex infection for which I am the primary specialist involved in managing antimicrobials, moderate complexity MDM Isolation: contact for esbl Communication: Thank you for the consult. Please do not hesitate to contact me via [employer] with issues or questions Kanika Sow MD [1] Past Medical History: Diagnosis Date DVT (deep venous thrombosis) ([facility] V24, [facility] V28) Hypertension [2] History reviewed. No pertinent surgical history. [3] No family history on file. [4] Social History Tobacco Use Smoking status: Former Types: Cigarettes Smokeless tobacco: Never Substance Use Topics Alcohol use: Not Currently Drug use: Yes Types: Marijuana/Cannabis [5] Current Facility-Administered Medications: acetaminophen (TYLENOL) tablet 650 mg, 650 mg, oral, q6h PRN, Cresencio Farias MD finasteride (PROSCAR) tablet 5 mg, 5 mg, oral, Daily, Cresencio Farias MD, 5 mg at 04/26/25952 furosemide (LASIX) injection 40 mg, 40 mg, intravenous, BID 02-10, Abraham May MD, 40 mg at 04/26/251816 meropenem (MERREM) 500 mg in sodium chloride 0.9 % 50 mL IVPB, 500 mg, intravenous, q12h, Rafita Contreras MD, Stopped at 04/26/25 132 naloxone (NARCAN) injection 0.04 mg, 0.04 mg, intravenous, PRN, Cresencio Farias MD ondansetron ODT (ZOFRAN-ODT) disintegrating tablet 4 mg, 4 mg, oral, q8h PRN OR ondansetron (PF) (ZOFRAN) injection 4 mg, 4 mg, intravenous, q8h PRN, Cresencio Farias MD polyethylene glycol (MIRALAX) packet 17 g, 17 g, oral, Nightly, Cresencio Farias MD, 17 g at 04/24/252055 senna (SENOKOT) tablet 17.2 mg, 2 tablet, oral, BID, Cresencio Farias MD, 17.2 mg at 04/24/252055 Insert peripheral IV, , , Once AND Maintain IV access, , , Until discontinued AND Saline lock IV, , , Once AND sodium chloride 0.9 % flush 10 mL, 10 mL, intravenous, BID, 10 mL at 04/26/25952 AND sodium chloride 0.9 % flush 10 mL, 10 mL, intravenous, PRN, Cresencio Farias MD tamsulosin (FLOMAX) 24 hr capsule 0.8 mg, 0.8 mg, oral, Nightly, Cresencio Farias MD, 0.8 mg at 04/25/252148 [6] PRN medications: acetaminophen, naloxone, ondansetron (ZOFRAN-ODT) disintegrating tablet ORondansetron, Insert peripheral IV AND Maintain IV access AND Saline lock IV AND sodium chloride AND sodium chloride * Emily Duncan MD - 04/24/2025 3:40 PM ESTAssociated Order(s): IP CONSULT TO PSYCHIATRY Psychiatry Progress note Hospital Day: 2 LOS: 0 days Patient seen by me, management and nursing report reviewed with the interdisciplinary team, medications and chart history reviewed. REASON FOR HOSPITALIZATION: Acute or unresolved changes in physiologic status Subjective: (reported issues and events over the last 24 hours) Patient seen and examined by this investigative writer. Per RN, Gallito is being reconsulted for decision-making capacity evaluation given some questionable judgement, ie. Sitting in feces seemingly unaware and refusing medical care. Per patient, he is oriented to person, place, date/time. He reports that he waspreviously medication noncompliant for a couple of days but has been compliant again with care recently following prescribed treatment. He reports wanting to get better. He reports that he is eating and hydrating fine but is on fluid restriction. He reports that he tried to urinate into the bed panand accidentally defecated in his pants which has not happened in many years. He reports that he thought he cleaned it all up but he missed a piece of feces and felt upset with himself that his RN had to clean it up. He denies any safety concerns. He reports having some insomnia last night but otherwise normally sleeping okay. He does report having some trouble with breathing and with his heart due to his medical problems. Principal Problem: Obstructive uropathy Objective: Seclusion/Restraint in last 24 hours: No Blood pressure (!) 119/98, pulse 103, temperature 36.5 ??C (97.7 ??F), temperature source Oral, resp. rate 20, height 1.778 m (70 ), weight 86.8 kg (191 lb 6.4 oz), SpO2 100%. Appearance/Grooming: eye contact good Musculoskeletal: Normal Orientation: Appropriate to age, Person, Place, and Time Mood: irritable Affect: mood-congruent, redirectable, and initially a little more irritable and guarded but later more pleasant and less guarded Memory: Recent: fair Remote: fair Attention Span: fair Concentration: fair Language Usage: Appropriate to age Speech: Coherent and Regular rate, rhythm, volume and articulation Fund. Of Knowledge: WNL Thought Processes: Abstract reasoning appropriate to age and Coherent Thought Associations: Logical Thought Abnormalities or Psychosis: Not present Judgement: Appropriate to age and Fair Insight: fair Sleep: normal and just some insomnia only last night Appetite: no change Energy: no change Lab Results: Results for orders placed or performed during the hospital encounter of 04/23/25 Basic metabolic panel Collection Time: 04/24/25 6:47 AM Result Value Ref Range Sodium 139 133 - 145 mmol/L Potassium 4.5 3.5 - 5.5 mmol/L Chloride 106 96 - 110 mmol/L CO2 17 (L) 21 - 32 mmol/L Anion Gap 16 (H) 3 - 11 Glucose 117 (H) 70 - 100 mg/dL BUN 73 (H) 5 - 25 mg/dL Creatinine 3.32 (H) 0.70 - 1.30 mg/dL eGFR 20 (L) >=60 mL/min/1.73m2 BUN/Creatinine Ratio 22.0 Calcium 8.4 (L) 8.5 - 10.5 mg/dL CBC auto differential Collection Time: 04/24/25 6:47 AM Result Value Ref Range WBC 8.3 4.8 - 10.8 K/mcL RBC 4.10 (L) 4.50 - 5.50 M/mcL Hemoglobin 10.8 (L) 13.5 - 17.5 g/dL Hematocrit 34.9 (L) 42.0 - 54.0 % MCV 84.9 79.0 - 98.0 FL MCH 26.3 (L) 27.0 - 32.0 pcg MCHC 30.9 (L) 32.0 - 37.0 g/dL RDW 15.8 (H) 11.0 - 15.0 % Platelets 344 130 - 400 K/mcL MPV 10.4 7.0 - 11.0 FL NRBC 0.0 <1.0 % NRBC Absolute 0.00 <0.10 K/mcL Neutrophils Relative 62.1 % Lymphocytes Relative 26.3 % Monocytes Relative 9.2 % Eosinophils Relative 1.6 % Basophils Relative 0.6 % Immature Granulocytes Relative 0.2 % Neutrophils Absolute 5.14 1.50 - 7.00 K/mcL Lymphocytes Absolute 2.18 1.00 - 5.00 K/mcL Monocytes Absolute 0.76 0.20 - 1.00 K/mcL Eosinophils Absolute 0.13 0.00 - 0.50 K/mcL Basophils Absolute 0.05 0.00 - 0.20 K/mcL Immature Granulocytes Absolute 0.02 0.00 - 0.03 K/mcL Vitamin B12 Collection Time: 04/24/25 6:47 AM Result Value Ref Range Vitamin B-12 1,231 (H) 211 - 911 pcg/mL Treponema pallidum antibody with reflex to RPR and particle agglutination Collection Time: 04/24/25 6:47 AM Result Value Ref Range T. Pallidum Antibodies Negative Negative Medications: Current Medications[1] Diagnosis/Assessment/Plan: Medication Issues: No ADRs Medication Changes: Target symptoms/DX: Continue medical treatment as per primary medical team. Continue medical treatment per primary medical team and Monitor behavior and mental status. Discussed with Dr. Law, primary medical attending. Reason for Continued Stay: Continue medical care. Discharge Planning: Continue per primary medical team. Emily Duncan MD [1] Current Facility-Administered Medications Medication Dose Route Frequency Provider Last Rate Last Admin acetaminophen (TYLENOL) tablet 650 mg 650 mg oral q6h PRN Cresencio Farias MD cefTRIAXone (ROCEPHIN) 1 g in sterile water 10 mL IV syringe 1 g intravenous q24h Cresencio Farias MD 1 g at 04/24/25 1404 finasteride (PROSCAR) tablet 5 mg 5 mg oral Daily Cresencio Farias MD 5 mg at 04/24/25 0821 furosemide (LASIX) injection 40 mg 40 mg intravenous q8h Cresencio Farias MD 40 mg at 04/24/25 1047 naloxone (NARCAN) injection 0.04 mg 0.04 mg intravenous PRN Cresencio Farias MD ondansetron ODT (ZOFRAN-ODT) disintegrating tablet 4 mg 4 mg oral q8h PRN Cresencio Farias MD Or ondansetron (PF) (ZOFRAN) injection 4 mg 4 mg intravenous q8h PRN Cresencio Farias MD polyethylene glycol (MIRALAX) packet 17 g 17 g oral Nightly Cresencio Farias MD senna (SENOKOT) tablet 17.2 mg 2 tablet oral BID Cresencio Farias MD 17.2 mg at 04/24/25 0821 sodium chloride 0.9 % flush 10 mL 10 mL intravenous BID Cresencio Farias MD 10 mL at 04/24/25 0818 And sodium chloride 0.9 % flush 10 mL 10 mL intravenous PRN Cresencio Farias MD tamsulosin (FLOMAX) 24 hr capsule 0.8 mg 0.8 mg oral Nightly Cresencio Farias MD 0.8 mg at 04/24/25 0241 * Daria Christianson MD - 04/24/2025 12:45 PM ESTAssociated Order(s): IP CONSULT TO NEPHROLOGY Images from the original note were not included. 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 He was diagnosied with occlusive right popliteal DVT and eliquis was held with a possible bleeding into his left kidney and patient refuse IVC. Patient was seen for similar issues with heart failure and urinary retention at [facility] in early Mar and he refused Dill. He had a dill for 24 hours and insisted it was removed. He stated he is okwith self-cath and is willing to learn. Patient is currently homeless. He had shortness of breath with leg swelling He has been told several times that he will end up on dialysis if he does not agree with placing a Dill but adamant that he does not want a Dill. He denied any NSAIDS Past Medical History Medical History[1] Surgical History Surgical History[2] Family History Family History[3] Social History Social History[4] Allergies Patient has no known allergies. Medications MEDSSCHEDULED[5] MEDSPRN[6] MEDSCONTINUOUS[7] Current medications reviewed. Review of Systems 10 points review of system negative except for pertinent in HPI Last Recorded Vitals: Visit Vitals BP (!) 114/97 (BP Location: Left arm, Patient Position: Lying) Pulse (!) 112 Temp 36.5 ??C (97.7 ??F) (Oral) Resp 14 Wt Readings from Last 3 Encounters: 04/24/25 86.8 kg (191 lb 6.4 oz) 04/23/25 86.7 kg (191 lb 3.2 oz) 04/16/25 83.9 kg (185 lb) Intake/Output last 3 shifts: Intake/Output Summary (Last 24 hours) at 04/24/2025 1245 Last data filed at 04/24/2025 0818 Gross per 24 hour Intake 660 ml Output 1200 ml Net -540 ml Physical Exam General: No acute distress HEENT: Normocephalic, atraumatic, anicteric Respiratory: unlabored Cardiovascular: S1 S2 normal Gl: Soft no tenderness Extremities: No cyanosis Neurological: Alert Integumentary: no rashes Psych: Calm, cooperative Results Review Results from last 7 days Lab Units 04/24/25 0647 04/23/25 0600 04/22/25 0630 WBC AUTO K/mcL 8.3 7.3 6.2 HEMOGLOBIN g/dL 10.8* 10.3* 10.1* HEMATOCRIT % 34.9* 33.2* 32.3* MCV FL 84.9 84.1 85.0 PLATELETS K/mcL 344 287 271 Results from last 7 days Lab Units 04/24/25 0647 04/23/25 0600 04/22/25 0630 CREATININE mg/dL 3.32* 3.38* 3.13* BUN mg/dL 73* 70* 68* SODIUM mmol/L 139 140 139 POTASSIUM mmol/L 4.5 4.8 5.2 CHLORIDE mmol/L 106 108 107 CO2 mmol/L 17* 20* 19* Phosphorus Date Value Ref Range Status 03/24/2025 4.7 (H) 2.5 - 4.5 mg/dL Final 03/23/2025 5.0 (H) 2.5 - 4.5 mg/dL Final No results found for: IRON , TIBC , FERRITIN No results found for: COLORUA , CLARITYUA , SPECGRAVUA , PHUA , PROTUA , GLUCOSEUA , KETONESUA , BILIRUBINUA , BLOODUA , UROBILINOGUA , NITRITEUA Impression & Plan 64 year old male with history of hypertension, 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 He was diagnosied with occlusive right popliteal DVT and eliquis was held with a possible bleeding into his left kidney and patient refuse IVC. CT without contrast :KIDNEYS/URETERS: Mild bilateral hydronephrosis and hydroureter. No renal or ureteral calculi. Hyperdensity in the lower pole calyces and left renal pelvis, new from prior. 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 His baseline creatinine is about 3-4 He was seen in [facility] early Mar for similar issue: heart failure exacerbation and urinary retention Recs: Creatinine currently 3.1 ( baseline about 3-4) Volume overloaded, continue IV lasix Consider meds for BPH Bladder scan every 4hours as planned and straight cath as needed Patient state if he has an accomodation, he is willing to learn to straight cath Daily weight Monitor output Daria Christianson MD [1] Past Medical History: Diagnosis Date DVT (deep venous thrombosis) ([facility] V24, [facility] V28) Hypertension [2] History reviewed. No pertinent surgical history. [3] No family history on file. [4] Social History Tobacco Use Smoking status: Former Types: Cigarettes Smokeless tobacco: Never Substance Use Topics Alcohol use: Not Currently Drug use: Yes Types: Marijuana/Cannabis [5] cefTRIAXone, 1 g, intravenous, q24h finasteride, 5 mg, oral, Daily furosemide, 40 mg, intravenous, q8h polyetheylene glycol, 17 g, oral, Nightly senna, 2 tablet, oral, BID sodium chloride, 10 mL, intravenous, BID tamsulosin, 0.8 mg, oral, Nightly [6] PRN medications: acetaminophen, naloxone, ondansetron (ZOFRAN-ODT) disintegrating tablet ORondansetron, Insert peripheral IV AND Maintain IV access AND Saline lock IV AND sodium chloride AND sodium chloride [7] documented in this encounter Plan of Treatment Not on file documented as of this encounter Procedures Procedure Name Priority Date/Time Associated Diagnosis Comments SST - GOLD Routine 05/03/2025 5:53 AM EST EXTRA TUBES Routine 05/03/2025 5:53 AM EST CBC WITH AUTO DIFFERENTIAL Timed 05/03/2025 5:53 AM EST CBC AND DIFFERENTIAL Timed 05/03/2025 5:53 AM EST CBC WITH AUTO DIFFERENTIAL Timed 05/02/2025 6:22 AM EST CBC AND DIFFERENTIAL Timed 05/02/2025 6:22 AM EST PHOSPHORUS Routine 05/02/2025 6:22 AM EST MAGNESIUM Routine 05/02/2025 6:22 AM EST BASIC METABOLIC PANEL Routine 05/02/2025 6:22 AM EST CBC WITH AUTO DIFFERENTIAL Timed 05/01/2025 7:11 AM EST CBC AND DIFFERENTIAL Timed 05/01/2025 7:11 AM EST PHOSPHORUS Routine 05/01/2025 7:11 AM EST MAGNESIUM Routine 05/01/2025 7:11 AM EST BASIC METABOLIC PANEL Routine 05/01/2025 7:11 AM EST CBC WITH AUTO DIFFERENTIAL Timed 04/30/2025 7:04 AM EST CBC AND DIFFERENTIAL Timed 04/30/2025 7:04 AM EST PHOSPHORUS Routine 04/30/2025 7:04 AM EST MAGNESIUM Routine 04/30/2025 7:04 AM EST BASIC METABOLIC PANEL Routine 04/30/2025 7:04 AM EST CBC WITH AUTO DIFFERENTIAL Timed 04/29/2025 7:18 AM EST CBC AND DIFFERENTIAL Timed 04/29/2025 7:18 AM EST PHOSPHORUS Routine 04/29/2025 7:18 AM EST MAGNESIUM Routine 04/29/2025 7:18 AM EST BASIC METABOLIC PANEL Routine 04/29/2025 7:18 AM EST OXYGEN THERAPY, ADULT Routine 04/28/2025 8:02 AM EST CBC WITH AUTO DIFFERENTIAL Timed 04/28/2025 6:00 AM EST CBC AND DIFFERENTIAL Timed 04/28/2025 6:00 AM EST SST - GOLD Routine 04/28/2025 5:57 AM EST EXTRA TUBES Routine 04/28/2025 5:57 AM EST BASIC METABOLIC PANEL Add-On 04/28/2025 5:57 AM EST OXYGEN THERAPY, ADULT Routine 04/27/2025 1:06 PM EST OXYGEN THERAPY, ADULT Routine 04/27/2025 1:06 PM EST XR CHEST 1 VIEW Routine 04/27/2025 12:44 PM EST ECG 12-LEAD STAT 04/27/2025 12:19 PM EST CBC WITH AUTO DIFFERENTIAL Timed 04/27/2025 6:44 AM EST CBC AND DIFFERENTIAL Timed 04/27/2025 6:44 AM EST PHOSPHORUS Routine 04/27/2025 6:44 AM EST MAGNESIUM Routine 04/27/2025 6:44 AM EST BASIC METABOLIC PANEL Routine 04/27/2025 6:44 AM EST CBC WITH AUTO DIFFERENTIAL Timed 04/26/2025 6:49 AM EST PROTHROMBIN TIME WITH INR Routine 04/26/2025 6:49 AM EST CBC AND DIFFERENTIAL Timed 04/26/2025 6:49 AM EST PHOSPHORUS Routine 04/26/2025 6:49 AM EST MAGNESIUM Routine 04/26/2025 6:49 AM EST BASIC METABOLIC PANEL Routine 04/26/2025 6:49 AM EST US EXTREMITY NONVASCULAR LIMITED LEFT Routine 04/25/2025 4:08 PM EST VAS US DUPLEX LOWER EXT VENOUS BILAT Routine 04/25/2025 4:08 PM EST Bilateral leg edema CBC WITH AUTO DIFFERENTIAL Timed 04/25/2025 7:07 AM EST CBC AND DIFFERENTIAL Timed 04/25/2025 7:07 AM EST PHOSPHORUS Routine 04/25/2025 7:07 AM EST MAGNESIUM Routine 04/25/2025 7:07 AM EST COMPREHENSIVE METABOLIC PANEL Routine 04/25/2025 7:07 AM EST TREPONEMA PALLIDUM ANTIBODY WITH REFLEX TO RPR AND PARTICLE AGGLUTINATION Add-On 04/24/2025 6:47 AM EST CBC WITH AUTO DIFFERENTIAL Timed 04/24/2025 6:47 AM EST CBC AND DIFFERENTIAL Timed 04/24/2025 6:47 AM EST C-REACTIVE PROTEIN Add-On 04/24/2025 6: 47 AM EST VITAMIN B12 Add-On 04/24/2025 6:47 AM EST BASIC METABOLIC PANEL Routine 04/24/2025 6:47 AM EST documented in this encounter Results * SST tube (05/03/2025 5:53 AM EST) Pathologist [facility] Extra Tube Hold for add-ons. 05/03/2025 8:02 AM EST [facility] Comment:Auto resulted. Blood Venous blood specimen / Unknown Venipuncture / Unknown 05/03/2025 5:53 AM EST 05/03/2025 6:19 AM EST us Ricardo Loredo MD LAB BLOOD ORDERABLES Final Resul t [facility] [address] [place] [address], * (ABNORMAL) CBC auto differential (05/03/2025 5:53 AM EST) [facility] WBC 9.1 4.8 - 10.8 K/mcL LAB HEMETOLOGY METHOD 05/03/2025 6:28 AM [facility] RBC 4.10(L) 4.50 - 5.50 M/mcL LAB HEMETOLOGY METHOD 05/03/2025 6:28 AM [facility] Hemoglobin 10.4(L) 13.5 - 17.5 g/dL LAB HEMETOLOGY METHOD 05/03/2025 6:28 AM [facility] Hematocrit 33.1(L) 42.0 - 54.0 % LAB HEMETOLOGY METHOD 05/03/2025 6:28 AM [facility] MCV 81.7 79.0 - 98.0 FL LAB HEMETOLOGY METHOD 05/03/2025 6:28 AM [facility] MCH 25.7(L) 27.0 - 32.0 pcg LAB HEMETOLOGY METHOD 05/03/2025 6:28 AM [facility] MCHC 31.4(L) 32.0 - 37.0 g/dL LAB HEMETOLOGY METHOD 05/03/2025 6:28 AM [facility] RDW 15.5(H) 11.0 - 15.0 % LAB HEMETOLOGY METHOD 05/03/2025 6:28 AM [facility] Platelets 301 130 - 400 K/mcL LAB HEMETOLOGY METHOD 05/03/2025 6:28 AM [facility] MPV 10.8 7.0 - 11.0 FL LAB HEMETOLOGY METHOD 05/03/2025 6:28 AM [facility] NRBC 0.0 <1.0 % LAB HEMETOLOGY METHOD 05/03/2025 6:28 AM [facility] NRBC Absolute 0.00 <0.10 K/mcL LAB HEMETOLOGY METHOD 05/03/2025 6:28 AM [facility] Neutrophils Relative 67.0 % LAB HEMETOLOGY METHOD 05/03/2025 6:28 AM [facility] Lymphocytes Relative 18.2 % LAB HEMETOLOGY METHOD 05/03/2025 6:28 AM [facility] Monocytes Relative 12.8 % LAB HEMETOLOGY METHOD 05/03/2025 6:28 AM [facility] Eosinophils Relative 0.8 % LAB HEMETOLOGY METHOD 05/03/2025 6:28 AM [facility] Basophils Relative 0.6 % LAB HEMETOLOGY METHOD 05/03/2025 6:28 AM [facility] Immature Granulocytes Relative 0.6 % LAB HEMETOLOGY METHOD 05/03/2025 6:28 AM [facility] Neutrophils Absolute 6.07 1.50 - 7.00 K/[facility] LAB HEMETOLOGY METHOD 05/03/2025 6:28 AM EST [facility] Lymphocytes Absolute 1.65 1.00 - 5.00 K/[facility] LAB HEMETOLOGY METHOD 05/03/2025 6:28 AM [facility] Monocytes Absolute 1.16(H) 0.20 - 1.00 K/[facility] LAB HEMETOLOGY METHOD 05/03/2025 6:28 AM EST [facility] Eosinophils Absolute 0.07 0.00 - 0.50 K/[facility] LAB HEMETOLOGY METHOD 05/03/2025 6:28 AM EST [facility] Basophils Absolute 0.05 0.00 - 0.20 K/[facility] LAB HEMETOLOGY METHOD 05/03/2025 6:28 AM [facility] Immature Granulocytes Absolute 0.05(H) 0.00 - 0.03 K/[facility] LAB HEMETOLOGY METHOD 05/03/2025 6:28 AM [facility] Blood Venous blood specimen / Unknown Venipuncture / Unknown 05/03/2025 5:53 AM EST 05/03/2025 6:16 AM EST us Cresencio Farias MD LAB BLOOD ORDERABLES Final Result [facility] [address] [place] [address], * (ABNORMAL) CBC auto differential (05/02/2025 6:22 AM EST) WBC 10.8 4.8 - 10.8 K/[facility] HEMETOLOGY METHOD 05/02/2025 6:56 AM [facility] RBC 4.10(L) 4.50 - 5.50 M/[facility] LAB HEMETOLOGY METHOD 05/02/2025 6:56 AM [facility] Hemoglobin 10.6(L) 13.5 - 17.5 g/dL LAB HEMETOLOGY METHOD 05/02/2025 6:56 AM [facility] Hematocrit 33.7(L) 42.0 - 54.0 % LAB HEMETOLOGY METHOD 05/02/2025 6:56 AM [facility] MCV 82.4 79.0 - 98.0 FL LAB HEMETOLOGY METHOD 05/02/2025 6:56 AM [facility] MCH 25.9(L) 27.0 - 32.0 pcg LAB HEMETOLOGY METHOD 05/02/2025 6:56 AM [facility] MCHC 31.5(L) 32.0 - 37.0 g/dL LAB HEMETOLOGY METHOD 05/02/2025 6:56 AM [facility] RDW 15.4(H) 11.0 - 15.0 % LAB HEMETOLOGY METHOD 05/02/2025 6:56 AM [facility] Platelets 302 130 - 400 K/mcL LAB HEMETOLOGY METHOD 05/02/2025 6:56 AM [facility] MPV 10.7 7.0 - 11.0 FL LAB HEMETOLOGY METHOD 05/02/2025 6:56 AM [facility] NRBC 0.0 <1.0 % LAB HEMETOLOGY METHOD 05/02/2025 6:56 AM [facility] NRBC Absolute 0.00 <0.10 K/mcL LAB HEMETOLOGY METHOD 05/02/2025 6:56 AM [facility] Neutrophils Relative 66.9 % LAB HEMETOLOGY METHOD 05/02/2025 6:56 AM [facility] Lymphocytes Relative 19.1 % LAB HEMETOLOGY METHOD 05/02/2025 6:56 AM [facility] Monocytes Relative 11.9 % LAB HEMETOLOGY METHOD 05/02/2025 6:56 AM [facility] Eosinophils Relative 1.2 % LAB HEMETOLOGY METHOD 05/02/2025 6:56 AM [facility] Basophils Relative 0.5 % LAB HEMETOLOGY METHOD 05/02/2025 6:56 AM [facility] Immature Granulocytes Relative 0.4 % LAB HEMETOLOGY METHOD 05/02/2025 6:56 AM EST [facility] Neutrophils Absolute 7.20(H) 1.50 - 7.00 K/mcL LAB HEMETOLOGY METHOD 05/02/2025 6:56 AM [facility] Lymphocytes Absolute 2.05 1.00 - 5.00 K/mcL LAB HEMETOLOGY METHOD 05/02/2025 6:56 AM [facility] Monocytes Absolute 1.28(H) 0.20 - 1.00 K/mcL LAB HEMETOLOGY METHOD 05/02/2025 6:56 AM EST [facility] Eosinophils Absolute 0.13 0.00 - 0.50 K/mcL LAB HEMETOLOGY METHOD 05/02/2025 6:56 AM EST [facility] Basophils Absolute 0.05 0.00 - 0.20 K/mcL LAB HEMETOLOGY METHOD 05/02/2025 6:56 AM [facility] Immature Granulocytes Absolute 0.04(H) 0.00 - 0.03 K/mcL LAB HEMETOLOGY METHOD 05/02/2025 6:56 AM [facility] Blood Venous blood specimen / Unknown Venipuncture / Unknown 05/02/2025 6:22 AM EST 05/02/2025 6:45 AM EST us Cresencio Farias MD LAB BLOOD ORDERABLES Final Result [facility] [address] [place] [address], * (ABNORMAL) Phosphorus (05/02/2025 6:22 AM EST) Pathologist [facility] Phosphorus 6.9(H) 2.5 - 4.5 mg/dL 05/02/2025 7:19 AM EST [facility] Blood Venous blood specimen / Unknown Venipuncture / Unknown 05/02/2025 6:22 AM EST 05/02/2025 6:45 AM EST us Rafita Contreras MD LAB BLOOD ORDERABLES F inal Result [facility] [address] [place] [address], [place] [phone] * Magnesium (05/02/2025 6:22 AM EST) [facility] Magnesium 1.9 1.9 - 2.6 mg/dL 05/02/2025 7:18 AM EST [facility] Blood Venous blood specimen / Unknown Venipuncture / Unknown 05/02/2025 6:22 AM EST 05/02/2025 6:45 AM EST us Rafita Contreras MD LAB BLOOD ORDERABLES F inal Result [facility] [address] [place] [address], [place] [phone] * (ABNORMAL) Basic metabolic panel (05/02/2025 6:22 AM EST) [facility] Sodium 131(L) 133 - 145 mmol/L 05/02/2025 7:22 AM EST [facility] Potassium 4.8 3.5 - 5.5 mmol/L 05/02/2025 7:22 AM EST [facility] Chloride 99 96 - 110 mmol/L 05/02/2025 7:22 AM EST [facility] CO2 18(L) 21 - 32 mmol/L 05/02/2025 7:22 AM [facility] Anion Gap 14(H) 3 - 11 05/02/2025 7:22 AM [facility] Glucose 95 70 - 100 mg/dL 05/02/2025 7:22 AM [facility] BUN 98(H) 5 - 25 mg/dL 05/02/2025 7:22 AM [facility] Creatinine 3.48(H) 0.70 - 1.30 mg/dL 05/02/2025 7:22 AM [facility] eGFR 19(L) >=60 mL/min/1. 73m2 05/02/2025 7:22 AM [facility] Comment:Calculation based on the Chronic Kidney Disease Epidemiology Collaboration (CKD-EPI) equation refit without adjustment for race. BUN/Creatinine Ratio 28.2 05/02/2025 7:22 AM [facility] Calcium 7.7(L) 8.5 - 10.5 mg/dL 05/02/2025 7:22 AM [facility] Blood Venous blood specimen / Unknown Venipuncture / Unknown 05/02/2025 6:22 AM EST 05/02/2025 6:45 AM EST us Rafita Contreras MD LAB BLOOD ORDERABLES F inal Result [facility] [address] [place] [address], * (ABNORMAL) CBC auto differential (05/01/2025 7:11 AM EST) Pathologist [facility] WBC 9.5 4.8 - 10.8 K/mcL LAB HEMETOLOGY METHOD 05/01/2025 8:11 AM [facility] RBC 4.20(L) 4.50 - 5.50 M/mcL LAB HEMETOLOGY METHOD 05/01/2025 8:11 AM [facility] Hemoglobin 10.7(L) 13.5 - 17.5 g/dL LAB HEMETOLOGY METHOD 05/01/2025 8:11 AM [facility] Hematocrit 34.7(L) 42.0 - 54.0 % LAB HEMETOLOGY METHOD 05/01/2025 8:11 AM [facility] MCV 82.4 79.0 - 98.0 FL LAB HEMETOLOGY METHOD 05/01/2025 8:11 AM [facility] MCH 25.4(L) 27.0 - 32.0 pcg LAB HEMETOLOGY METHOD 05/01/2025 8:11 AM [facility] MCHC 30.8(L) 32.0 - 37.0 g/dL LAB HEMETOLOGY METHOD 05/01/2025 8:11 AM [facility] RDW 15.5(H) 11.0 - 15.0 % LAB HEMETOLOGY METHOD 05/01/2025 8:11 AM [facility] Platelets 301 130 - 400 K/mcL LAB HEMETOLOGY METHOD 05/01/2025 8:11 AM [facility] MPV 10.8 7.0 - 11.0 FL LAB HEMETOLOGY METHOD 05/01/2025 8:11 AM [facility] NRBC 0.0 <1.0 % LAB HEMETOLOGY METHOD 05/01/2025 8:11 AM [facility] NRBC Absolute 0.00 <0.10 K/mcL LAB HEMETOLOGY METHOD 05/01/2025 8:11 AM [facility] Neutrophils Relative 64.2 % LAB HEMETOLOGY METHOD 05/01/2025 8:11 AM [facility] Lymphocytes Relative 20.2 % LAB HEMETOLOGY METHOD 05/01/2025 8:11 AM EST [facility] Monocytes Relative 12.9 % LAB HEMETOLOGY METHOD 05/01/2025 8:11 AM [facility] Eosinophils Relative 1.6 % LAB HEMETOLOGY METHOD 05/01/2025 8:11 AM [facility] Basophils Relative 0.7 % LAB HEMETOLOGY METHOD 05/01/2025 8:11 AM [facility] Immature Granulocytes Relative 0.4 % LAB HEMETOLOGY METHOD 05/01/2025 8:11 AM [facility] Neutrophils Absolute 6.09 1.50 - 7.00 K/mcL LAB HEMETOLOGY METHOD 05/01/2025 8:11 AM [facility] Lymphocytes Absolute 1.92 1.00 - 5.00 K/mcL LAB HEMETOLOGY METHOD 05/01/2025 8:11 AM [facility] Monocytes Absolute 1.23(H) 0.20 - 1.00 K/mcL LAB HEMETOLOGY METHOD 05/01/2025 8:11 AM [facility] Eosinophils Absolute 0.15 0.00 - 0.50 K/mcL LAB HEMETOLOGY METHOD 05/01/2025 8:11 AM [facility] Basophils Absolute 0.07 0.00 - 0.20 K/mcL LAB HEMETOLOGY METHOD 05/01/2025 8:11 AM [facility] Immature Granulocytes Absolute 0.04(H) 0.00 - 0.03 K/mcL LAB HEMETOLOGY METHOD 05/01/2025 8:11 AM [facility] Blood Venous blood specimen / Unknown Venipuncture / Unknown 05/01/2025 7:11 AM EST 05/01/2025 7:35 AM EST us Cresencio Farias MD LAB BLOOD ORDERABLES Final Result [facility] [address] [place] [address], * (ABNORMAL) Phosphorus (05/01/2025 7:11 AM EST) [facility] Phosphorus 6.1(H) 2.5 - 4.5 mg/dL 05/01/2025 8:21 AM EST [facility] Blood Venous blood specimen / Unknown Venipuncture / Unknown 05/01/2025 7:11 AM EST 05/01/2025 7:34 AM EST us Rafita Contreras MD LAB BLOOD ORDERABLES F inal Result Performing Organization Address City/[facility]/ZIP Co de Phone Number [facility] [address] [place] [address], [place] [phone] * Magnesium (05/01/2025 7:11 AM EST) [facility] Magnesium 2.0 1.9 - 2.6 mg/dL 05/01/2025 8:21 AM EST [facility] Blood Venous blood specimen / Unknown Venipuncture / Unknown 05/01/2025 7:11 AM EST 05/01/2025 7:34 AM EST us Rafita Contreras MD LAB BLOOD ORDERABLES F inal Result [facility] [address] [place] [address], [place] [phone] * (ABNORMAL) Basic metabolic panel (05/01/2025 7:11 AM EST) [facility] Sodium 134 133 - 145 mmol/L 05/01/2025 8:36 AM EST [facility] Potassium 4.6 3.5 - 5.5 mmol/L 05/01/2025 8:36 AM EST [facility] Chloride 102 96 - 110 mmol/L 05/01/2025 8:36 AM [facility] CO2 18(L) 21 - 32 mmol/L 05/01/2025 8:36 AM [facility] Anion Gap 14(H) 3 - 11 05/01/2025 8:36 AM [facility] Glucose 92 70 - 100 mg/dL 05/01/2025 8:36 AM [facility] BUN 95(H) 5 - 25 mg/dL 05/01/2025 8:36 AM [facility] Creatinine 3.47(H) 0.70 - 1.30 mg/dL 05/01/2025 8:36 AM [facility] eGFR 19(L) >=60 mL/min/1. 73m2 05/01/2025 8:36 AM [facility] Comment:Calculation based on the Chronic Kidney Disease Epidemiology Collaboration (CKD-EPI) equation refit without adjustment for race. BUN/Creatinine Ratio 27.4 05/01/2025 8:36 AM [facility] Calcium 8.3(L) 8.5 - 10.5 mg/dL 05/01/2025 8:36 AM [facility] Blood Venous blood specimen / Unknown Venipuncture / Unknown 05/01/2025 7:11 AM EST 05/01/2025 7:34 AM EST us Rafita Contreras MD LAB BLOOD ORDERABLES F inal Result [facility] [address] [place] [address], * (ABNORMAL) CBC auto differential (04/30/2025 7:04 AM EST) WBC 8.3 4.8 - 10.8 K/[facility] HEMETOLOGY METHOD 04/30/2025 7:37 AM [facility] RBC 3.70(L) 4.50 - 5.50 M/mcL LAB HEMETOLOGY METHOD 04/30/2025 7:37 AM [facility] Hemoglobin 9.8(L) 13.5 - 17.5 g/dL LAB HEMETOLOGY METHOD 04/30/2025 7:37 AM [facility] Hematocrit 30.2(L) 42.0 - 54.0 % LAB HEMETOLOGY METHOD 04/30/2025 7:37 AM [facility] MCV 80.7 79.0 - 98.0 FL LAB HEMETOLOGY METHOD 04/30/2025 7:37 AM [facility] MCH 26.2(L) 27.0 - 32.0 pcg LAB HEMETOLOGY METHOD 04/30/2025 7:37 AM [facility] MCHC 32.5 32.0 - 37.0 g/dL LAB HEMETOLOGY METHOD 04/30/2025 7:37 AM [facility] RDW 15.2(H) 11.0 - 15.0 % LAB HEMETOLOGY METHOD 04/30/2025 7:37 AM [facility] Platelets 271 130 - 400 K/mcL LAB HEMETOLOGY METHOD 04/30/2025 7:37 AM [facility] MPV 10.2 7.0 - 11.0 FL LAB HEMETOLOGY METHOD 04/30/2025 7:37 AM [facility] NRBC 0.0 <1.0 % LAB HEMETOLOGY METHOD 04/30/2025 7:37 AM [facility] NRBC Absolute 0.00 <0.10 K/mcL LAB HEMETOLOGY METHOD 04/30/2025 7:37 AM [facility] Neutrophils Relative 65.8 % LAB HEMETOLOGY METHOD 04/30/2025 7:37 AM [facility] Lymphocytes Relative 20.3 % LAB HEMETOLOGY METHOD 04/30/2025 7:37 AM [facility] Monocytes Relative 12.0 % LAB HEMETOLOGY METHOD 04/30/2025 7:37 AM [facility] Eosinophils Relative 0.8 % LAB HEMETOLOGY METHOD 04/30/2025 7:37 AM [facility] Basophils Relative 0.6 % LAB HEMETOLOGY METHOD 04/30/2025 7:37 AM [facility] Immature Granulocytes Relative 0.5 % LAB HEMETOLOGY METHOD 04/30/2025 7:37 AM [facility] Neutrophils Absolute 5.47 1.50 - 7.00 K/mcL LAB HEMETOLOGY METHOD 04/30/2025 7:37 AM [facility] Lymphocytes Absolute 1.69 1.00 - 5.00 K/mcL LAB HEMETOLOGY METHOD 04/30/2025 7:37 AM [facility] Monocytes Absolute 1.00 0.20 - 1.00 K/mcL LAB HEMETOLOGY METHOD 04/30/2025 7:37 AM [facility] Eosinophils Absolute 0.07 0.00 - 0.50 K/mcL LAB HEMETOLOGY METHOD 04/30/2025 7:37 AM [facility] Basophils Absolute 0.05 0.00 - 0.20 K/mcL LAB HEMETOLOGY METHOD 04/30/2025 7:37 AM [facility] Immature Granulocytes Absolute 0.04(H) 0.00 - 0.03 K/mcL LAB HEMETOLOGY METHOD 04/30/2025 7:37 AM [facility] Blood Venous blood specimen / Unknown Venipuncture / Unknown 04/30/2025 7:04 AM EST 04/30/2025 7:21 AM EST Cresencio Farias MD LAB BLOOD ORDERABLES Final Result [facility] [address] [place] [address], * (ABNORMAL) Phosphorus (04/30/2025 7:04 AM EST) Phosphorus 5.9(H) 2.5 - 4.5 mg/dL 04/30/2025 8:08 AM EST [facility] Blood Venous blood specimen / Unknown Venipuncture / Unknown 04/30/2025 7:04 AM EST 04/30/2025 7:20 AM EST us Rafita Contreras MD LAB BLOOD ORDERABLES F inal Result Performing Organization Address [facility]/ZIP Co de Phone Number [facility] [address] [place] [address], * (ABNORMAL) Magnesium (04/30/2025 7:04 AM EST) Magnesium 1.8(L) 1.9 - 2.6 mg/dL 04/30/2025 8:05 AM EST [facility] Blood Venous blood specimen / Unknown Venipuncture / Unknown 04/30/2025 7:04 AM EST 04/30/2025 7:20 AM EST us Rafita Contreras MD LAB BLOOD ORDERABLES F inal Result Performing Organization Address City/[facility]/ZIP Co de Phone Number [facility] [address] [place] [address], * (ABNORMAL) Basic metabolic panel (04/30/2025 7:04 AM EST) Sodium 135 133 - 145 mmol/L 04/30/2025 8:11 AM EST [facility] Potassium 4.2 3.5 - 5.5 mmol/L 04/30/2025 8:11 AM [facility] Chloride 102 96 - 110 mmol/L 04/30/2025 8:11 AM [facility] CO2 19(L) 21 - 32 mmol/L 04/30/2025 8:11 AM [facility] Anion Gap 14(H) 3 - 11 04/30/2025 8:11 AM [facility] Glucose 89 70 - 100 mg/dL 04/30/2025 8:11 AM [facility] BUN 92(H) 5 - 25 mg/dL 04/30/2025 8:11 AM [facility] Creatinine 3.35(H) 0.70 - 1.30 mg/dL 04/30/2025 8:11 AM [facility] eGFR 20(L) >=60 mL/min/1. 73m2 04/30/2025 8:11 AM [facility] Comment:Calculation based on the Chronic Kidney Disease Epidemiology Collaboration (CKD-EPI) equation refit without adjustment for race. BUN/Creatinine Ratio 27.5 04/30/2025 8:11 AM [facility] Calcium 7.9(L) 8.5 - 10.5 mg/dL 04/30/2025 8:11 AM [facility] Blood Venous blood specimen / Unknown Venipuncture / Unknown 04/30/2025 7:04 AM EST 04/30/2025 7:20 AM EST us Rafita Contreras MD LAB BLOOD ORDERABLES F inal Result [facility] [address] [place] [address], * (ABNORMAL) CBC auto differential (04/29/2025 7:18 AM EST) [facility] WBC 11.1(H) 4.8 - 10.8 K/mcL LAB HEMETOLOGY METHOD 04/29/2025 7:57 AM [facility] RBC 4.30(L) 4.50 - 5.50 M/mcL LAB HEMETOLOGY METHOD 04/29/2025 7:57 AM [facility] Hemoglobin 11.0(L) 13.5 - 17.5 g/dL LAB HEMETOLOGY METHOD 04/29/2025 7:57 AM [facility] Hematocrit 35.0(L) 42.0 - 54.0 % LAB HEMETOLOGY METHOD 04/29/2025 7:57 AM [facility] MCV 82.4 79.0 - 98.0 FL LAB HEMETOLOGY METHOD 04/29/2025 7:57 AM [facility] MCH 25.9(L) 27.0 - 32.0 pcg LAB HEMETOLOGY METHOD 04/29/2025 7:57 AM [facility] MCHC 31.4(L) 32.0 - 37.0 g/dL LAB HEMETOLOGY METHOD 04/29/2025 7:57 AM [facility] RDW 15.5(H) 11.0 - 15.0 % LAB HEMETOLOGY METHOD 04/29/2025 7:57 AM [facility] Platelets 337 130 - 400 K/mcL LAB HEMETOLOGY METHOD 04/29/2025 7:57 AM [facility] MPV 10.9 7.0 - 11.0 FL LAB HEMETOLOGY METHOD 04/29/2025 7:57 AM [facility] NRBC 0.0 <1.0 % LAB HEMETOLOGY METHOD 04/29/2025 7:57 AM [facility] NRBC Absolute 0.00 <0.10 K/mcL LAB HEMETOLOGY METHOD 04/29/2025 7:57 AM [facility] Neutrophils Relative 67.8 % LAB HEMETOLOGY METHOD 04/29/2025 7:57 AM [facility] Lymphocytes Relative 18.9 % LAB HEMETOLOGY METHOD 04/29/2025 7:57 AM [facility] Monocytes Relative 11.6 % LAB HEMETOLOGY METHOD 04/29/2025 7:57 AM [facility] Eosinophils Relative 0.6 % LAB HEMETOLOGY METHOD 04/29/2025 7:57 AM [facility] Basophils Relative 0.6 % LAB HEMETOLOGY METHOD 04/29/2025 7:57 AM [facility] Immature Granulocytes Relative 0.5 % LAB HEMETOLOGY METHOD 04/29/2025 7:57 AM [facility] Neutrophils Absolute 7.53(H) 1.50 - 7.00 K/mcL LAB HEMETOLOGY METHOD 04/29/2025 7:57 AM [facility] Lymphocytes Absolute 2.10 1.00 - 5.00 K/mcL LAB HEMETOLOGY METHOD 04/29/2025 7:57 AM [facility] Monocytes Absolute 1.29(H) 0.20 - 1.00 K/mcL LAB HEMETOLOGY METHOD 04/29/2025 7:57 AM [facility] Eosinophils Absolute 0.07 0.00 - 0.50 K/mcL LAB HEMETOLOGY METHOD 04/29/2025 7:57 AM [facility] Basophils Absolute 0.07 0.00 - 0.20 K/mcL LAB HEMETOLOGY METHOD 04/29/2025 7:57 AM [facility] Immature Granulocytes Absolute 0.05(H) 0.00 - 0.03 K/mcL LAB HEMETOLOGY METHOD 04/29/2025 7:57 AM [facility] Blood Venous blood specimen / Unknown Venipuncture / Unknown 04/29/2025 7:18 AM EST 04/29/2025 7:36 AM EST us Cresencio Farias MD LAB BLOOD ORDERABLES Final Result Performing Organization Address City/[facility]/ZIP Co de Phone Number [facility] [address] [place] [address], [place] [phone] * (ABNORMAL) Phosphorus (04/29/2025 7:18 AM EST) Phosphorus 5.9(H) 2.5 - 4.5 mg/dL 04/29/2025 8:18 AM EST [facility] Blood Venous blood specimen / Unknown Venipuncture / Unknown 04/29/2025 7:18 AM EST 04/29/2025 7:35 AM EST us Rafita Contreras MD LAB BLOOD ORDERABLES F inal Result Performing Organization Address [facility]/ZIP Co de Phone Number [facility] [address] [place] [address], [place] [phone] * (ABNORMAL) Magnesium (04/29/2025 7:18 AM EST) Magnesium 1.8(L) 1.9 - 2.6 mg/dL 04/29/2025 8:15 AM EST [facility] Blood Venous blood specimen / Unknown Venipuncture / Unknown 04/29/2025 7:18 AM EST 04/29/2025 7:35 AM EST us Rafita Contreras MD LAB BLOOD ORDERABLES F inal Result [facility] [address] [place] [address], [place] [phone] * (ABNORMAL) Basic metabolic panel (04/29/2025 7:18 AM EST) Sodium 136 133 - 145 mmol/L 04/29/2025 8:22 AM [facility] Potassium 4.4 3.5 - 5.5 mmol/L 04/29/2025 8:22 AM [facility] Chloride 101 96 - 110 mmol/L 04/29/2025 8:22 AM [facility] CO2 21 21 - 32 mmol/L 04/29/2025 8:22 AM [facility] Anion Gap 14(H) 3 - 11 04/29/2025 8:22 AM [facility] Glucose 94 70 - 100 mg/dL 04/29/2025 8:22 AM [facility] BUN 92(H) 5 - 25 mg/dL 04/29/2025 8:22 AM [facility] Creatinine 3.68(H) 0.70 - 1.30 mg/dL 04/29/2025 8:22 AM [facility] eGFR 18(L) >=60 mL/min/1. 73m2 04/29/2025 8:22 AM [facility] Comment:Calculation based on the Chronic Kidney Disease Epidemiology Collaboration (CKD-EPI) equation refit without adjustment for race. BUN/Creatinine Ratio 25.0 04/29/2025 8:22 AM [facility] Calcium 8.2(L) 8.5 - 10.5 mg/dL 04/29/2025 8:22 AM [facility] Blood Venous blood specimen / Unknown Venipuncture / Unknown 04/29/2025 7:18 AM EST 04/29/2025 7:35 AM EST us Rafita Contreras MD LAB BLOOD ORDERABLES F inal Result [facility] [address] [place] [address], * (ABNORMAL) CBC auto differential (04/28/2025 6:00 AM EST) [facility] WBC 9.9 4.8 - 10.8 K/mcL LAB HEMETOLOGY METHOD 04/28/2025 6:42 AM [facility] RBC 4.00(L) 4.50 - 5.50 M/mcL LAB HEMETOLOGY METHOD 04/28/2025 6:42 AM [facility] Hemoglobin 10.6(L) 13.5 - 17.5 g/dL LAB HEMETOLOGY METHOD 04/28/2025 6:42 AM [facility] Hematocrit 32.7(L) 42.0 - 54.0 % LAB HEMETOLOGY METHOD 04/28/2025 6:42 AM [facility] MCV 81.5 79.0 - 98.0 FL LAB HEMETOLOGY METHOD 04/28/2025 6:42 AM [facility] MCH 26.4(L) 27.0 - 32.0 pcg LAB HEMETOLOGY METHOD 04/28/2025 6:42 AM [facility] MCHC 32.4 32.0 - 37.0 g/dL LAB HEMETOLOGY METHOD 04/28/2025 6:42 AM [facility] RDW 15.4(H) 11.0 - 15.0 % LAB HEMETOLOGY METHOD 04/28/2025 6:42 AM [facility] Platelets 299 130 - 400 K/mcL LAB HEMETOLOGY METHOD 04/28/2025 6:42 AM [facility] MPV 9.9 7.0 - 11.0 FL LAB HEMETOLOGY METHOD 04/28/2025 6:42 AM [facility] NRBC 0.0 <1.0 % LAB HEMETOLOGY METHOD 04/28/2025 6:42 AM [facility] NRBC Absolute 0.00 <0.10 K/mcL LAB HEMETOLOGY METHOD 04/28/2025 6:42 AM [facility] Neutrophils Relative 68.3 % LAB HEMETOLOGY METHOD 04/28/2025 6:42 AM [facility] Lymphocytes Relative 17.7 % LAB HEMETOLOGY METHOD 04/28/2025 6:42 AM [facility] Monocytes Relative 12.2 % LAB HEMETOLOGY METHOD 04/28/2025 6:42 AM [facility] Eosinophils Relative 0.8 % LAB HEMETOLOGY METHOD 04/28/2025 6:42 AM [facility] Basophils Relative 0.5 % LAB HEMETOLOGY METHOD 04/28/2025 6:42 AM [facility] Immature Granulocytes Relative 0.5 % LAB HEMETOLOGY METHOD 04/28/2025 6:42 AM [facility] Neutrophils Absolute 6.76 1.50 - 7.00 K/mcL LAB HEMETOLOGY METHOD 04/28/2025 6:42 AM [facility] Lymphocytes Absolute 1.75 1.00 - 5.00 K/mcL LAB HEMETOLOGY METHOD 04/28/2025 6:42 AM [facility] Monocytes Absolute 1.21(H) 0.20 - 1.00 K/mcL LAB HEMETOLOGY METHOD 04/28/2025 6:42 AM [facility] Eosinophils Absolute 0.08 0.00 - 0.50 K/mcL LAB HEMETOLOGY METHOD 04/28/2025 6:42 AM [facility] Basophils Absolute 0.05 0.00 - 0.20 K/mcL LAB HEMETOLOGY METHOD 04/28/2025 6:42 AM [facility] Immature Granulocytes Absolute 0.05(H) 0.00 - 0.03 K/mcL LAB HEMETOLOGY METHOD 04/28/2025 6:42 AM [facility] Blood Venous blood specimen / Unknown Venipuncture / Unknown 04/28/2025 6:00 AM EST 04/28/2025 6:23 AM EST us Cresencio Farias MD LAB BLOOD ORDERABLES Final Result [facility] [address] [place] [address], * (ABNORMAL) Basic metabolic panel (04/28/2025 5:57 AM EST) Sodium 137 133 - 145 mmol/L 04/28/2025 9:27 AM [facility] Potassium 4.2 3.5 - 5.5 mmol/L 04/28/2025 9:27 AM [facility] Chloride 103 96 - 110 mmol/L 04/28/2025 9:27 AM [facility] CO2 20(L) 21 - 32 mmol/L 04/28/2025 9:27 AM [facility] Anion Gap 14(H) 3 - 11 04/28/2025 9:27 AM [facility] Glucose 89 70 - 100 mg/dL 04/28/2025 9:27 AM [facility] BUN 87(H) 5 - 25 mg/dL 04/28/2025 9:27 AM [facility] Creatinine 3.71(H) 0.70 - 1.30 mg/dL 04/28/2025 9:27 AM [facility] eGFR 18(L) >=60 mL/min/1. 73m2 04/28/2025 9:27 AM [facility] Comment:Calculation based on the Chronic Kidney Disease Epidemiology Collaboration (CKD-EPI) equation refit without adjustment for race. BUN/Creatinine Ratio 23.5 04/28/2025 9:27 AM EST [facility] Calcium 8.1(L) 8.5 - 10.5 mg/dL 04/28/2025 9:27 AM EST [facility] Blood Venous blood specimen / Unknown Venipuncture / Unknown 04/28/2025 5:57 AM EST 04/28/2025 6:23 AM EST us Rafita Contreras MD LAB BLOOD ORDERABLES F inal Result [facility] [address] [place] [address], [place] [phone] * SST tube (04/28/2025 5:57 AM EST) Extra Tube Hold for add-ons. 04/28/2025 8:01 AM EST [facility] Comment:Auto resulted. Blood Venous blood specimen / Unknown Venipuncture / Unknown 04/28/2025 5:57 AM EST 04/28/2025 6:23 AM EST us Rafita Contreras MD LAB BLOOD ORDERABLES F inal Result [facility] [address] [place] [address], [place] [phone] * XR Chest 1 View (04/27/2025 12:44 PM EST) Anatomical Region Laterality Modality Body Radiographic Makenna ging 04/27/2025 12:5 1 PM EST Impressions 04/27/2025 12:56 PM EST Patchy opacities at both bases appears slightly more prominent than on the previous study. Trace right pleural effusion or pleural thickening. -------- FINAL REPORT -------- Dictated By: Uche Ham Dictated Date: 04/27/2025 12:51 ET Assigned Physician: Uche Ham Reviewed and Electronically Signed By: Uche Ham Signed Date: 04/27/2025 12:56 ET Workstation ID: [id number] Transcribed By: Self Edit Transcribed Date: 04/27/2025 12:51 ET Narrative 04/27/2025 12:56 PM EST PROCEDURE: AP chest radiograph. HISTORY: SOB, pulmonary edema suspected. COMPARISON: 04/15/2025. FINDINGS: Mildly hypoventilatory inspiratory effort. Patchy linear opacities at the bases, left greater than right, more extensive than on the previous study. Slight blunting of the right costophrenic angle, pleural thickening versus a trace pleural effusion. Stable mild cardiac enlargement. Mild degenerative changes of the spine and shoulders. Procedure Note cUhe Ham MD - 04/27/2025 PROCEDURE: AP chest radiograph. HISTORY: SOB, pulmonary edema suspected. COMPARISON: 04/15/2025. FINDINGS: Mildly hypoventilatory inspiratory effort. Patchy linear opacities at thebases, left greater than right, more extensive than on the previous study.Slight blunting of the right costophrenic angle, pleural thickeningversus a trace pleural effusion. Stable mild cardiac enlargement. Milddegenerative changes of the spine and shoulders. IMPRESSION: Patchy opacities at both bases appears slightly more prominent than on theprevious study. Trace right pleural effusion or pleural thickening. -------- FINAL REPORT -------- Dictated By: Uche Ham Dictated Date: 04/27/2025 12:51 ET Assigned Physician: Uche Ham Reviewed and Electronically Signed By: Uche Ham Signed Date: 04/27/2025 12:56 ET Workstation ID: [id number] Transcribed By: Self Edit Transcribed Date: 04/27/2025 12:51 ET Rafita Contreras MD IMG XR PROCEDURES Nidia l Result * ECG 12 lead (04/27/2025 12:19 PM EST) Ventricular Rate ECG 110 BPM GEMUSE Atrial Rate 110 BPM GEMUSE P-R Interval 132 ms GEMUSE QRS Duration 96 ms GEMUSE Q-T Interval 350 ms GEMUSE QTc 473 ms GEMUSE P Wave [place] 44 degrees GEMUSE R [place] 28 degrees GEMUSE T [place] -169 degrees GEMUSE ECG Interpretation Sinus tachycardia with occasional Premature ventricular complexes Nonspecific T wave abnormality Abnormal ECG When compared with ECG of 23-APR-2025 07:50, Premature ventricular complexes are now Present Nonspecific T wave abnormality, worse in Inferior leads Nonspecific T wave abnormality now evident in Lateral leads Confirmed by TRINITY VIVAR ([id number]) on 04/27/2025 7:09:04 PM GEMUSE 04/27/2025 12:1 9 PM EST 04/27/2025 7:09 PM EST us Rafita Contreras MD ECG ORDERABLES Final Result GEMUSE * (ABNORMAL) CBC auto differential (04/27/2025 6:44 AM EST) WBC 8.9 4.8 - 10.8 K/mcL LAB HEMETOLOGY METHOD 04/27/2025 7:38 AM [facility] RBC 4.10(L) 4.50 - 5.50 M/mcL LAB HEMETOLOGY METHOD 04/27/2025 7:38 AM [facility] Hemoglobin 10.6(L) 13.5 - 17.5 g/dL LAB HEMETOLOGY METHOD 04/27/2025 7:38 AM [facility] Hematocrit 33.6(L) 42.0 - 54.0 % LAB HEMETOLOGY METHOD 04/27/2025 7:38 AM [facility] MCV 82.2 79.0 - 98.0 FL LAB HEMETOLOGY METHOD 04/27/2025 7:38 AM [facility] MCH 25.9(L) 27.0 - 32.0 pcg LAB HEMETOLOGY METHOD 04/27/2025 7:38 AM [facility] MCHC 31.5(L) 32.0 - 37.0 g/dL LAB HEMETOLOGY METHOD 04/27/2025 7:38 AM [facility] RDW 15.5(H) 11.0 - 15.0 % LAB HEMETOLOGY METHOD 04/27/2025 7:38 AM [facility] Platelets 326 130 - 400 K/mcL LAB HEMETOLOGY METHOD 04/27/2025 7:38 AM [facility] MPV 10.0 7.0 - 11.0 FL LAB HEMETOLOGY METHOD 04/27/2025 7:38 AM [facility] NRBC 0.0 <1.0 % LAB HEMETOLOGY METHOD 04/27/2025 7:38 AM [facility] NRBC Absolute 0.00 <0.10 K/mcL LAB HEMETOLOGY METHOD 04/27/2025 7:38 AM [facility] Neutrophils Relative 65.3 % LAB HEMETOLOGY METHOD 04/27/2025 7:38 AM [facility] Lymphocytes Relative 19.8 % LAB HEMETOLOGY METHOD 04/27/2025 7:38 AM [facility] Monocytes Relative 12.2 % LAB HEMETOLOGY METHOD 04/27/2025 7:38 AM [facility] Eosinophils Relative 1.5 % LAB HEMETOLOGY METHOD 04/27/2025 7:38 AM [facility] Basophils Relative 0.8 % LAB HEMETOLOGY METHOD 04/27/2025 7:38 AM [facility] Immature Granulocytes Relative 0.4 % LAB HEMETOLOGY METHOD 04/27/2025 7:38 AM [facility] Neutrophils Absolute 5.82 1.50 - 7.00 K/mcL LAB HEMETOLOGY METHOD 04/27/2025 7:38 AM [facility] Lymphocytes Absolute 1.77 1.00 - 5.00 K/mcL LAB HEMETOLOGY METHOD 04/27/2025 7:38 AM EST [facility] Monocytes Absolute 1.09(H) 0.20 - 1.00 K/[facility] HEMETOLOGY METHOD 04/27/2025 7:38 AM EST [facility] Eosinophils Absolute 0.13 0.00 - 0.50 K/[facility] HEMETOLOGY METHOD 04/27/2025 7:38 AM EST [facility] Basophils Absolute 0.07 0.00 - 0.20 K/[facility] HEMETOLOGY METHOD 04/27/2025 7:38 AM EST [facility] Immature Granulocytes Absolute 0.04(H) 0.00 - 0.03 K/[facility] HEMETOLOGY METHOD 04/27/2025 7:38 AM EST [facility] Blood Venous blood specimen / Unknown Venipuncture / Unknown 04/27/2025 6:44 AM EST 04/27/2025 6:54 AM EST Cresencio Farias MD LAB BLOOD ORDERABLES Final Result Performing Organization Address City/[facility]/ZIP Co de Phone Number [facility] [address] [place] [id number], * (ABNORMAL) Phosphorus (04/27/2025 6:44 AM EST) Phosphorus 5.4(H) 2.5 - 4.5 mg/dL 04/27/2025 7:44 AM EST [facility] Blood Venous blood specimen / Unknown Venipuncture / Unknown 04/27/2025 6:44 AM EST 04/27/2025 6:54 AM EST Rafita Contreras MD LAB BLOOD ORDERABLES F inal Result [facility] [address] [place] [address], [place] [phone] * (ABNORMAL) Magnesium (04/27/2025 6:44 AM EST) [facility] Magnesium 1.8(L) 1.9 - 2.6 mg/dL 04/27/2025 7:41 AM [facility] Blood Venous blood specimen / Unknown Venipuncture / Unknown 04/27/2025 6:44 AM EST 04/27/2025 6:54 AM EST us Rafita Contreras MD LAB BLOOD ORDERABLES F inal Result [facility] [address] [place] [address], [place] [phone] * (ABNORMAL) Basic metabolic panel (04/27/2025 6:44 AM EST) [facility] Sodium 138 133 - 145 mmol/L 04/27/2025 7:44 AM [facility] Potassium 4.1 3.5 - 5.5 mmol/L 04/27/2025 7:44 AM [facility] Chloride 103 96 - 110 mmol/L 04/27/2025 7:44 AM [facility] CO2 20(L) 21 - 32 mmol/L 04/27/2025 7:44 AM [facility] Anion Gap 15(H) 3 - 11 04/27/2025 7:44 AM [facility] Glucose 89 70 - 100 mg/dL 04/27/2025 7:44 AM [facility] BUN 83(H) 5 - 25 mg/dL 04/27/2025 7:44 AM [facility] Creatinine 3.58(H) 0.70 - 1.30 mg/dL 04/27/2025 7:44 AM [facility] eGFR 18(L) >=60 mL/min/1. 73m2 04/27/2025 7:44 AM [facility] Comment:Calculation based on the Chronic Kidney Disease Epidemiology Collaboration (CKD-EPI) equation refit without adjustment for race. BUN/Creatinine Ratio 23.2 04/27/2025 7:44 AM [facility] Calcium 8.3(L) 8.5 - 10.5 mg/dL 04/27/2025 7:44 AM [facility] Blood Venous blood specimen / Unknown Venipuncture / Unknown 04/27/2025 6:44 AM EST 04/27/2025 6:54 AM EST Rafita Contreras MD LAB BLOOD ORDERABLES F inal Result [facility] [address] [place] [address], * (ABNORMAL) CBC auto differential (04/26/2025 6:49 AM EST) WBC 7.1 4.8 - 10.8 K/mcL LAB HEMETOLOGY METHOD 04/26/2025 7:28 AM [facility] RBC 4.10(L) 4.50 - 5.50 M/mcL LAB HEMETOLOGY METHOD 04/26/2025 7:28 AM [facility] Hemoglobin 10.8(L) 13.5 - 17.5 g/dL LAB HEMETOLOGY METHOD 04/26/2025 7:28 AM [facility] Hematocrit 35.4(L) 42.0 - 54.0 % LAB HEMETOLOGY METHOD 04/26/2025 7:28 AM [facility] MCV 86.3 79.0 - 98.0 FL LAB HEMETOLOGY METHOD 04/26/2025 7:28 AM [facility] MCH 26.3(L) 27.0 - 32.0 pcg LAB HEMETOLOGY METHOD 04/26/2025 7:28 AM [facility] MCHC 30.5(L) 32.0 - 37.0 g/dL LAB HEMETOLOGY METHOD 04/26/2025 7:28 AM [facility] RDW 15.7(H) 11.0 - 15.0 % LAB HEMETOLOGY METHOD 04/26/2025 7:28 AM [facility] Platelets 311 130 - 400 K/mcL LAB HEMETOLOGY METHOD 04/26/2025 7:28 AM [facility] MPV 10.4 7.0 - 11.0 FL LAB HEMETOLOGY METHOD 04/26/2025 7:28 AM [facility] NRBC 0.0 <1.0 % LAB HEMETOLOGY METHOD 04/26/2025 7:28 AM [facility] NRBC Absolute 0.00 <0.10 K/mcL LAB HEMETOLOGY METHOD 04/26/2025 7:28 AM [facility] Neutrophils Relative 62.3 % LAB HEMETOLOGY METHOD 04/26/2025 7:28 AM [facility] Lymphocytes Relative 23.7 % LAB HEMETOLOGY METHOD 04/26/2025 7:28 AM [facility] Monocytes Relative 11.4 % LAB HEMETOLOGY METHOD 04/26/2025 7:28 AM [facility] Eosinophils Relative 1.3 % LAB HEMETOLOGY METHOD 04/26/2025 7:28 AM [facility] Basophils Relative 0.7 % LAB HEMETOLOGY METHOD 04/26/2025 7:28 AM [facility] Immature Granulocytes Relative 0.6 % LAB HEMETOLOGY METHOD 04/26/2025 7:28 AM [facility] Neutrophils Absolute 4.41 1.50 - 7.00 K/mcL LAB HEMETOLOGY METHOD 04/26/2025 7:28 AM EST [facility] Lymphocytes Absolute 1.68 1.00 - 5.00 K/mcL LAB HEMETOLOGY METHOD 04/26/2025 7:28 AM EST [facility] Monocytes Absolute 0.81 0.20 - 1.00 K/[facility] HEMETOLOGY METHOD 04/26/2025 7:28 AM EST [facility] Eosinophils Absolute 0.09 0.00 - 0.50 K/[facility] HEMETOLOGY METHOD 04/26/2025 7:28 AM EST [facility] Basophils Absolute 0.05 0.00 - 0.20 K/[facility] HEMETOLOGY METHOD 04/26/2025 7:28 AM [facility] Immature Granulocytes Absolute 0.04(H) 0.00 - 0.03 K/[facility] HEMETOLOGY METHOD 04/26/2025 7:28 AM EST [facility] Blood Venous blood specimen / Unknown Venipuncture / Unknown 04/26/2025 6:49 AM EST 04/26/2025 7:04 AM EST Cresencio Farias MD LAB BLOOD ORDERABLES Final Result [facility] [address] [place] [address], * (ABNORMAL) Prothrombin time with INR (04/26/2025 6:49 AM EST) Protime 17.9(H) 10.6 - 13.9 sec LAB COAGULATION METHOD 04/26/2025 7:32 AM EST [facility] INR 1.4 LAB COAGULATION METHOD 04/26/2025 7:32 AM EST [facility] Blood Venous blood specimen / Unknown Venipuncture / Unknown 04/26/2025 6:49 AM EST 04/26/2025 7:04 AM EST us Chandan Law MD LAB BLOOD ORDERABLES Final Resu lt Performing Organization Address [facility] Co de Phone Number [facility] [address] [place] [address], [place] [phone] * (ABNORMAL) Magnesium (04/26/2025 6:49 AM EST) Magnesium 1.8(L) 1.9 - 2.6 mg/dL 04/26/2025 7:41 AM EST [facility] Blood Venous blood specimen / Unknown Venipuncture / Unknown 04/26/2025 6:49 AM EST 04/26/2025 7:03 AM EST us Chandan Law MD LAB BLOOD ORDERABLES Final Resu lt Performing Organization Address [facility] Co de Phone Number [facility] [address] [place] [address], [place] [phone] * (ABNORMAL) Phosphorus (04/26/2025 6:49 AM EST) Phosphorus 5.3(H) 2.5 - 4.5 mg/dL 04/26/2025 7:43 AM EST [facility] Blood Venous blood specimen / Unknown Venipuncture / Unknown 04/26/2025 6:49 AM EST 04/26/2025 7:03 AM EST us Chandan Law MD LAB BLOOD ORDERABLES Final Resu lt Performing Organization Address City/[facility]/ZIP Co de Phone Number [facility] [address] [place] [address], [place] [phone] * (ABNORMAL) Basic metabolic panel (04/26/2025 6:49 AM EST) Sodium 137 133 - 145 mmol/L 04/26/2025 7:47 AM [facility] Potassium 4.3 3.5 - 5.5 mmol/L 04/26/2025 7:47 AM [facility] Chloride 104 96 - 110 mmol/L 04/26/2025 7:47 AM [facility] CO2 17(L) 21 - 32 mmol/L 04/26/2025 7:47 AM [facility] Anion Gap 16(H) 3 - 11 04/26/2025 7:47 AM [facility] Glucose 95 70 - 100 mg/dL 04/26/2025 7:47 AM [facility] BUN 79(H) 5 - 25 mg/dL 04/26/2025 7:47 AM [facility] Creatinine 3.51(H) 0.70 - 1.30 mg/dL 04/26/2025 7:47 AM [facility] eGFR 19(L) >=60 mL/min/1. 73m2 04/26/2025 7:47 AM [facility] Comment:Calculation based on the Chronic Kidney Disease Epidemiology Collaboration (CKD-EPI) equation refit without adjustment for race. BUN/Creatinine Ratio 22.5 04/26/2025 7:47 AM [facility] Calcium 8.2(L) 8.5 - 10.5 mg/dL 04/26/2025 7:47 AM [facility] Blood Venous blood specimen / Unknown Venipuncture / Unknown 04/26/2025 6:49 AM EST 04/26/2025 7:03 AM EST us Chandan Law MD LAB BLOOD ORDERABLES Final Resu lt [facility] [address] [place] [address], * Vascular US duplex lower extremity venous bilateral (04/25/2025 4:08 PM EST) Anatomical Region Laterality Modality Vascular, Abdomen Ultrasound 04/25/2025 4:44 PM EST Impressions 04/25/2025 4:44 PM EST 1. Unchanged occlusive deep vein thrombosis within the right popliteal vein. No other thrombus seen within the right leg. 2. No deep vein thrombosis in the left lower extremity. This document has been electronically signed by: Shashi Fleming MD on 04/25/2025 16:44:54 Narrative 04/25/2025 4:44 PM EST INDICATION: edema Venous duplex ultrasound bilateral lower extremity Comparison: US/OH/SR - VAS US DUPLEX LOW EXT VENOUS BILAT - 04/22/25 15:21 EST Findings: There is occlusive thrombus again seen within the right popliteal vein. Otherwise, the visualized deep veins are fully compressible with normal Doppler color flow and spectral tracings. No popliteal cyst. Procedure Note Shashi Fleming MD - 04/25/2025 INDICATION: edema Venous duplex ultrasound bilateral lower extremity Comparison: US/OH/SR - VAS US DUPLEX LOW EXT VENOUS BILAT - 04/22/2515:21 EST Findings: There is occlusive thrombus again seen within the right popliteal vein. Otherwise, the visualized deep veins are fully compressible with normal Doppler color flow and spectral tracings. No popliteal cyst. IMPRESSION: 1. Unchanged occlusive deep vein thrombosis within the right popliteal vein. No other thrombus seen within the right leg. 2. No deep vein thrombosis in the left lower extremity. This document has been electronically signed by: Shashi Fleming MD on 04/25/2025 16:44:54 us Chandan Law MD CV VASCULAR PROCEDURES Final Re sult * US Extremity Nonvascular Limited Left (04/25/2025 4:08 PM EST) Anatomical Region Laterality Modality Extremity Left Ultrasound 04/25/2025 4:48 PM EST Impressions 04/25/2025 4:48 PM EST No change in medial lower left thigh hematoma. This document has been electronically signed by: Shashi Fleming MD on 04/25/2025 16:48:54 Narrative 04/25/2025 4:48 PM EST INDICATION: pain Left lower extremity nonvascular limited ultrasound Comparison: US/[place]/SR - US EXT NONVASCULAR LIMITED LT - 04/22/25 15:44 EST Findings: In the medial lower left thigh there is a 5.2 x 2.5 x 6.4 cm hypoechoic collection with internal reticulations. No internal vascularity and no significant increased peripheral vascularity. Collections not significantly changed in size from prior. Procedure Note Shashi Fleming MD - 04/25/2025 INDICATION: pain Left lower extremity nonvascular limited ultrasound Comparison: US/[place]/SR - US EXT NONVASCULAR LIMITED LT - 04/22/25 15:44EST Findings: In the medial lower left thigh there is a 5.2 x 2.5 x 6.4 cm hypoechoic collection with internal reticulations. No internal vascularity and no significant increased peripheral vascularity. Collections not significantly changed in size from prior. IMPRESSION: No change in medial lower left thigh hematoma. This document has been electronically signed by: Shashi Fleming MD on 04/25/2025 16:48:54 us Chandan Law MD IMG US PROCEDURES Final Result * (ABNORMAL) CBC auto differential (04/25/2025 7:07 AM EST) [facility] WBC 7.7 4.8 - 10.8 K/mcL LAB HEMETOLOGY METHOD 04/25/2025 7:28 AM [facility] RBC 4.00(L) 4.50 - 5.50 M/mcL LAB HEMETOLOGY METHOD 04/25/2025 7:28 AM [facility] Hemoglobin 10.7(L) 13.5 - 17.5 g/dL LAB HEMETOLOGY METHOD 04/25/2025 7:28 AM [facility] Hematocrit 33.5(L) 42.0 - 54.0 % LAB HEMETOLOGY METHOD 04/25/2025 7:28 AM [facility] MCV 83.5 79.0 - 98.0 FL LAB HEMETOLOGY METHOD 04/25/2025 7:28 AM [facility] MCH 26.7(L) 27.0 - 32.0 pcg LAB HEMETOLOGY METHOD 04/25/2025 7:28 AM [facility] MCHC 31.9(L) 32.0 - 37.0 g/dL LAB HEMETOLOGY METHOD 04/25/2025 7:28 AM [facility] RDW 15.7(H) 11.0 - 15.0 % LAB HEMETOLOGY METHOD 04/25/2025 7:28 AM [facility] Platelets 350 130 - 400 K/mcL LAB HEMETOLOGY METHOD 04/25/2025 7:28 AM [facility] MPV 10.7 7.0 - 11.0 FL LAB HEMETOLOGY METHOD 04/25/2025 7:28 AM [facility] NRBC 0.0 <1.0 % LAB HEMETOLOGY METHOD 04/25/2025 7:28 AM [facility] NRBC Absolute 0.00 <0.10 K/mcL LAB HEMETOLOGY METHOD 04/25/2025 7:28 AM [facility] Neutrophils Relative 59.5 % LAB HEMETOLOGY METHOD 04/25/2025 7:28 AM [facility] Lymphocytes Relative 25.0 % LAB HEMETOLOGY METHOD 04/25/2025 7:28 AM [facility] Monocytes Relative 12.7 % LAB HEMETOLOGY METHOD 04/25/2025 7:28 AM [facility] Eosinophils Relative 1.8 % LAB HEMETOLOGY METHOD 04/25/2025 7:28 AM [facility] Basophils Relative 0.7 % LAB HEMETOLOGY METHOD 04/25/2025 7:28 AM [facility] Immature Granulocytes Relative 0.3 % LAB HEMETOLOGY METHOD 04/25/2025 7:28 AM EST [facility] Neutrophils Absolute 4.58 1.50 - 7.00 K/mcL LAB HEMETOLOGY METHOD 04/25/2025 7:28 AM EST [facility] Lymphocytes Absolute 1.92 1.00 - 5.00 K/mcL LAB HEMETOLOGY METHOD 04/25/2025 7:28 AM EST [facility] Monocytes Absolute 0.98 0.20 - 1.00 K/mcL LAB HEMETOLOGY METHOD 04/25/2025 7:28 AM EST [facility] Eosinophils Absolute 0.14 0.00 - 0.50 K/mcL LAB HEMETOLOGY METHOD 04/25/2025 7:28 AM [facility] Basophils Absolute 0.05 0.00 - 0.20 K/mcL LAB HEMETOLOGY METHOD 04/25/2025 7:28 AM [facility] Immature Granulocytes Absolute 0.02 0.00 - 0.03 K/[facility] LAB HEMETOLOGY METHOD 04/25/2025 7:28 AM [facility] Blood Venous blood specimen / Unknown Venipuncture / Unknown 04/25/2025 7:07 AM EST 04/25/2025 7:17 AM EST us Cresencio Farias MD LAB BLOOD ORDERABLES Final Result [facility] [address] [place] [address], * (ABNORMAL) Phosphorus (04/25/2025 7:07 AM EST) Phosphorus 4.7(H) 2.5 - 4.5 mg/dL 04/25/2025 8:07 AM EST [facility] Blood Venous blood specimen / Unknown Venipuncture / Unknown 04/25/2025 7:07 AM EST 04/25/2025 7:17 AM EST us Chandan Law MD LAB BLOOD ORDERABLES Final Resu lt Performing Organization Address City/[facility]/ZIP Co de Phone Number [facility] [address] [place] [address], [place] [phone] * (ABNORMAL) Magnesium (04/25/2025 7:07 AM EST) Magnesium 1.7(L) 1.9 - 2.6 mg/dL 04/25/2025 8:07 AM [facility] Blood Venous blood specimen / Unknown Venipuncture / Unknown 04/25/2025 7:07 AM EST 04/25/2025 7:17 AM EST us Chandan Law MD LAB BLOOD ORDERABLES Final Resu lt Performing Organization Address [facility]/ZIP Co de Phone Number [facility] [address] [place] [address], [place] [phone] * (ABNORMAL) Comprehensive metabolic panel (04/25/2025 7:07 AM EST) Pathologist [facility] Sodium 138 133 - 145 mmol/L 04/25/2025 9:22 AM [facility] Potassium 4.5 3.5 - 5.5 mmol/L 04/25/2025 9:22 AM [facility] Chloride 106 96 - 110 mmol/L 04/25/2025 9:22 AM [facility] CO2 18(L) 21 - 32 mmol/L 04/25/2025 9:22 AM [facility] Anion Gap 14(H) 3 - 11 04/25/2025 9:22 AM [facility] Glucose 104(H) 70 - 100 mg/dL 04/25/2025 9:22 AM [facility] BUN 75(H) 5 - 25 mg/dL 04/25/2025 9:22 AM [facility] Creatinine 3.38(H) 0.70 - 1.30 mg/dL 04/25/2025 9:22 AM [facility] eGFR 20(L) >=60 mL/min/1. 73m2 04/25/2025 9:22 AM [facility] Comment:Calculation based on the Chronic Kidney Disease Epidemiology Collaboration (CKD-EPI) equation refit without adjustment for race. BUN/Creatinine Ratio 22.2 04/25/2025 9:22 AM [facility] Calcium 8.3(L) 8.5 - 10.5 mg/dL 04/25/2025 9:22 AM [facility] AST (SGOT) 99(H) 10 - 42 unit/L 04/25/2025 9:22 AM [facility] ALT (SGPT) 63(H) 10 - 60 unit/L 04/25/2025 9:22 AM [facility] Alkaline Phosphatase 327(H) 42 - 121 unit/L 04/25/2025 9:22 AM [facility] Total Protein 5.8(L) 6.0 - 8.0 g/dL 04/25/2025 9:22 AM [facility] Albumin 3.1(L) 3.2 - 5.0 g/dL 04/25/2025 9:22 AM [facility] Total Bilirubin 0.6 0.0 - 1.4 mg/dL 04/25/2025 9:22 AM [facility] Blood Venous blood specimen / Unknown Venipuncture / Unknown 04/25/2025 7:07 AM EST 04/25/2025 7:17 AM EST us Chandan Law MD LAB BLOOD ORDERABLES Final Resu lt [facility] [address] [place] [address], [place] [phone] * (ABNORMAL) C-reactive protein (04/24/2025 6:47 AM EST) [facility] C-Reactive Protein 3.33(H) <=0.50 mg/dL 04/24/2025 5:14 PM EST [facility] Blood Venous blood specimen / Unknown Venipuncture / Unknown 04/24/2025 6:47 AM EST 04/24/2025 7:03 AM EST us Chandan Law MD LAB BLOOD ORDERABLES Final Resu lt [facility] [address] [place] [address], [place] [phone] * Treponema pallidum antibody with reflex to RPR and particle agglutination (04/24/2025 6:47 AM EST) [facility] T. Pallidum Antibodies Negative Negative 04/24/2025 11:15 AM EST [facility] Blood Venous blood specimen / Unknown Venipuncture / Unknown 04/24/2025 6:47 AM EST 04/24/2025 7:03 AM EST us Chandan Law MD LAB BLOOD ORDERABLES Final Resu lt [facility] [address] [place] [address], [place] [phone] * (ABNORMAL) Vitamin B12 (04/24/2025 6:47 AM EST) Pathologist [facility] Vitamin B-12 1,231(H) 211 - 911 pcg/mL 04/24/2025 11:09 AM EST [facility] Blood Venous blood specimen / Unknown Venipuncture / Unknown 04/24/2025 6:47 AM EST 04/24/2025 7:03 AM EST us Chandan Law MD LAB BLOOD ORDERABLES Final Resu lt [facility] [address] [place] [address], * (ABNORMAL) CBC auto differential (04/24/2025 6:47 AM EST) WBC 8.3 4.8 - 10.8 K/mcL LAB HEMETOLOGY METHOD 04/24/2025 7:24 AM EST [facility] RBC 4.10(L) 4.50 - 5.50 M/[facility] LAB HEMETOLOGY METHOD 04/24/2025 7:24 AM [facility] Hemoglobin 10.8(L) 13.5 - 17.5 g/dL LAB HEMETOLOGY METHOD 04/24/2025 7:24 AM [facility] Hematocrit 34.9(L) 42.0 - 54.0 % LAB HEMETOLOGY METHOD 04/24/2025 7:24 AM [facility] MCV 84.9 79.0 - 98.0 FL LAB HEMETOLOGY METHOD 04/24/2025 7:24 AM [facility] MCH 26.3(L) 27.0 - 32.0 pcg LAB HEMETOLOGY METHOD 04/24/2025 7:24 AM [facility] MCHC 30.9(L) 32.0 - 37.0 g/dL LAB HEMETOLOGY METHOD 04/24/2025 7:24 AM [facility] RDW 15.8(H) 11.0 - 15.0 % LAB HEMETOLOGY METHOD 04/24/2025 7:24 AM [facility] Platelets 344 130 - 400 K/mcL LAB HEMETOLOGY METHOD 04/24/2025 7:24 AM [facility] MPV 10.4 7.0 - 11.0 FL LAB HEMETOLOGY METHOD 04/24/2025 7:24 AM [facility] NRBC 0.0 <1.0 % LAB HEMETOLOGY METHOD 04/24/2025 7:24 AM [facility] NRBC Absolute 0.00 <0.10 K/mcL LAB HEMETOLOGY METHOD 04/24/2025 7:24 AM [facility] Neutrophils Relative 62.1 % LAB HEMETOLOGY METHOD 04/24/2025 7:24 AM [facility] Lymphocytes Relative 26.3 % LAB HEMETOLOGY METHOD 04/24/2025 7:24 AM [facility] Monocytes Relative 9.2 % LAB HEMETOLOGY METHOD 04/24/2025 7:24 AM [facility] Eosinophils Relative 1.6 % LAB HEMETOLOGY METHOD 04/24/2025 7:24 AM [facility] Basophils Relative 0.6 % LAB HEMETOLOGY METHOD 04/24/2025 7:24 AM [facility] Immature Granulocytes Relative 0.2 % LAB HEMETOLOGY METHOD 04/24/2025 7:24 AM [facility] Neutrophils Absolute 5.14 1.50 - 7.00 K/mcL LAB HEMETOLOGY METHOD 04/24/2025 7:24 AM [facility] Lymphocytes Absolute 2.18 1.00 - 5.00 K/mcL LAB HEMETOLOGY METHOD 04/24/2025 7:24 AM [facility] Monocytes Absolute 0.76 0.20 - 1.00 K/mcL LAB HEMETOLOGY METHOD 04/24/2025 7:24 AM [facility] Eosinophils Absolute 0.13 0.00 - 0.50 K/mcL LAB HEMETOLOGY METHOD 04/24/2025 7:24 AM [facility] Basophils Absolute 0.05 0.00 - 0.20 K/mcL LAB HEMETOLOGY METHOD 04/24/2025 7:24 AM [facility] Immature Granulocytes Absolute 0.02 0.00 - 0.03 K/[facility] LAB HEMETOLOGY METHOD 04/24/2025 7:24 AM [facility] Blood Venous blood specimen / Unknown Venipuncture / Unknown 04/24/2025 6:47 AM EST 04/24/2025 7:02 AM EST us Cresencio Farias MD LAB BLOOD ORDERABLES Final Result [facility] [address] [place] [address], [place] [phone] * (ABNORMAL) Basic metabolic panel (04/24/2025 6:47 AM EST) Sodium 139 133 - 145 mmol/L 04/24/2025 8:06 AM [facility] Potassium 4.5 3.5 - 5.5 mmol/L 04/24/2025 8:06 AM [facility] Chloride 106 96 - 110 mmol/L 04/24/2025 8:06 AM [facility] CO2 17(L) 21 - 32 mmol/L 04/24/2025 8:06 AM [facility] Anion Gap 16(H) 3 - 11 04/24/2025 8:06 AM [facility] Glucose 117(H) 70 - 100 mg/dL 04/24/2025 8:06 AM [facility] BUN 73(H) 5 - 25 mg/dL 04/24/2025 8:06 AM [facility] Creatinine 3.32(H) 0.70 - 1.30 mg/dL 04/24/2025 8:06 AM [facility] eGFR 20(L) >=60 mL/min/1. 73m2 04/24/2025 8:06 AM EST [facility] Comment:Calculation based on the Chronic Kidney Disease Epidemiology Collaboration (CKD-EPI) equation refit without adjustment for race. BUN/Creatinine Ratio 22.0 04/24/2025 8:06 AM EST [facility] Calcium 8.4(L) 8.5 - 10.5 mg/dL 04/24/2025 8:06 AM EST [facility] Blood Venous blood specimen / Unknown Venipuncture / Unknown 04/24/2025 6:47 AM EST 04/24/2025 7:03 AM EST us Cresencio Farias MD LAB BLOOD ORDERABLES Final Result [facility] [address] [place] [address], documented in this encounter Visit Diagnoses Diagnosis Obstructive uropathy- Primary Urinary obstruction, unspecified Urinary retention Unspecified retention of urine Obstructive uropathy Urinary obstruction, unspecified Gross hematuria Bilateral leg edema Edema Urinary retention Unspecified retention of urine documented in this encounter Admitting Diagnoses Diagnosis Obstructive uropathy Urinary obstruction, unspecified Urinary retention Unspecified retention of urine documented in this encounter Administered Medications Inactive Administered Medications - up to 3 most recent administrations Medication Order MAR Action Action Date Dose Rate Site bumetanide (BUMEX) tablet 1 mg 1 mg, oral, Daily, First dose on Sat04/28/25 at 0900, On hold since Sat04/29/2025 at 1240 until manually unheld Given 04/29/2025 8:16 AM EST 1 mg Given 04/28/2025 8:57 AM EST 1 mg bumetanide (BUMEX) tablet 1 mg 1 mg, oral, Daily, First dose on Sat05/01/25 at 0900 Given 05/04/2025 8:17 AM EST 1 mg Given 05/03/2025 8:40 AM EST 1 mg Given 05/02/2025 9:15 AM EST 1 mg carvediloL (COREG) tablet 3.125 mg 3.125 mg, oral, 2 times daily with meals, First dose on Sat04/30/25 at 1830 Given 05/04/2025 8:17 AM EST 3.125 mg Given 05/03/2025 4:55 PM EST 3.125 mg Given 05/03/2025 8:40 AM EST 3.125 mg cefTRIAXone (ROCEPHIN) 1 g in sterile water 10 mL IV syringe 1 g, intravenous, Administer over 3 Minutes, Every 24 hours, First dose (after last modification) on 04/24/25 at 1345, For 5 doses, Do not administer simultaneously with any calcium containing solutions via a Y-site in any patient., Indication: Urinary Tract/Genitourinary Given 04/25/2025 1:19 PM EST 1 g Given 04/24/2025 2:04 PM EST 1 g finasteride (PROSCAR) tablet 5 mg 5 mg, oral, Daily, First dose (after last modification) on 04/24/25 at 0900, Hazardous Medication Intact: - Single pair of ASTM standard [id number] certified gloves - Eye/face protection if vomit or potential to spit up - Do NOT split, crush, or open dosage units Given 05/04/2025 8:17 AM EST 5 mg Given 05/03/2025 8:40 AM EST 5 mg Given 05/02/2025 9:15 AM EST 5 mg furosemide (LASIX) injection 40 mg 40 mg, intravenous, Every 8 hours, First dose (after last modification) on 04/24/25 at 0000 Given 04/26/2025 3:22 AM EST 40 mg Given 04/25/2025 6:52 PM EST 40 mg Ri ght Forearm Given 04/25/2025 11:20 AM EST 40 mg R ight Forearm furosemide (LASIX) injection 40 mg 40 mg, intravenous, BID Diuretic, First dose (after last modification) on 04/26/25 at 1700 Given 04/27/2025 8:44 AM EST 40 mg Given 04/26/2025 6:17 PM EST 40 mg lactated Ringer's infusion 100 mL/hr, intravenous, See admin instructions, Starting on Grace 04/29/25 at 1131, For 20 hours New Bag 04/29/2025 10:42 PM EST 100 mL/hr 100 mL/hr New Bag 04/29/2025 12:19 PM EST 100 mL/hr 100 mL/hr LORazepam (ATIVAN) tablet 0.5 mg 0.5 mg, oral, Every 12 hours PRN, anxiety, Starting on Grace 04/29/25 at 1525 Given 04/29/2025 3:45 PM EST 0.5 mg magnesium oxide (MAG-OX) tablet 400 mg 400 mg, oral, Once, On Grace 04/29/25 at 1015, For 1 dose Given 04/29/2025 10:38 AM EST 400 mg magnesium oxide (MAG-OX) tablet 400 mg 400 mg, oral, 2 times daily, First dose on Sat04/30/25 at 1000, For 2 doses Given 04/30/2025 8:31 PM EST 400 mg Given 04/30/2025 9:34 AM EST 400 mg meropenem (MERREM) 500 mg in sodium chloride 0.9 % 50 mL IVPB 500 mg, intravenous, at 100 mL/hr, Administer over 30 Minutes, Every 12 hours, First dose on Sat04/26/25 at 1100, For 7 days, Indication: Urinary Tract/Genitourinary, Authorizing ID: Approval Pending New Bag 05/02/2025 11:26 PM EST 500 mg 100 mL/hr New Bag 05/02/2025 12:07 PM EST 500 mg 100 mL/hr New Bag 05/01/2025 11:22 PM EST 500 mg 100 mL/hr ondansetron (PF) (ZOFRAN) injection 4 mg 4 mg, intravenous, Every 8 hours PRN, vomiting, nausea, Starting on 04/24/25 at 0006, -ONLY give IV if patient is unable to take orally. -If inadequate response within 30 minutes, proceed to next-line agent or contact provider if no further options ordered. ondansetron ODT (ZOFRAN-ODT) disintegrating tablet 4 mg 4 mg, oral, Every 8 hours PRN, vomiting, nausea, Starting on 04/24/25 at 0006, -Give IV if patient is unable to take orally. -If inadequate response within 30 minutes, proceed to next-line agent or contact provider if no further options ordered. For ODT tablets: -Do not remove from blister pack until just before administering. -Patient should allow tablet to dissolve on tongue. polyethylene glycol (MIRALAX) packet 17 g 17 g, oral, Nightly, First dose (after last modification) on Sat04/23/25 at 2353, Bowel Regimen - for prevention of constipation Given 05/02/2025 8:03 PM EST 17 g Given 04/24/2025 8:56 PM EST 17 g senna (SENOKOT) tablet 17.2 mg 17.2 mg (2 tablet), oral, 2 times daily, First dose (after last modification) on Sat04/23/25 at 2353 Given 05/03/2025 8:40 AM EST 17.2 mg Given 05/02/2025 8:03 PM EST 17.2 mg Given 04/24/2025 8:56 PM EST 17.2 mg sodium bicarbonate tablet 650 mg 650 mg, oral, 2 times daily, First dose on Sat05/03/25 at 1130 Given 05/04/2025 8:16 AM EST 650 mg Given 05/03/2025 12:03 PM EST 650 mg sodium chloride 0.9 % flush 10 mL 10 mL, intravenous, 2 times daily, First dose (after last modification) on Sat04/23/25 at 2353 Given 05/04/2025 8:21 AM EST 10 mL Given 05/03/2025 9:21 PM EST 10 mL Given 05/03/2025 8:44 AM EST 10 mL sodium chloride 0.9 % flush 10 mL 10 mL, intravenous, As needed, line care, Starting on Sat04/23/25 at 2352 tamsulosin (FLOMAX) 24 hr capsule 0.8 mg 0.8 mg, oral, Nightly, First dose (after last modification) on Sat04/23/25 at 2353, For oral administration: capsules should be swallowed whole (Do not crush, chew, or open). For tube administration: open capsule and administer with water (granules should NOT be crushed). Given 05/03/2025 9:20 PM EST 0.8 mg Given 05/02/2025 8:03 PM EST 0.8 mg Given 05/01/2025 8:10 PM EST 0.8 mg documented in this encounter Discontinued Medications Medication Sig Discontinue Reason Start Date End Da te furosemide (LASIX) 20 mg tabletIndications:bere a Take 1 tablet (20 mg total) by mouth 1 (one) time each day. Stop Taking at Discharge 05/04/2025 documented as of this encounter Active and Recently Administered Medications Times are shown in EST. Scheduled Medication Order 05/02/2025 05/03/2025 05/04/2025 bumetanide (BUMEX) tablet 1 mg 1 mg, oral, Daily, First dose on 05/01/25 at 0900 0915 (Given - Provider: Jean Claude Garrett RN) 0840 (Given - Provider: Cari Norman RN) 0817 (Given - Provider: Cari Norman RN) carvediloL (COREG) tablet 3.125 mg 3.125 mg, oral, 2 times daily with meals, First dose on Sat04/30/25 at 1830 0915 (Given - Provider: Jean Claude Garrett RN - Comment: workflow)1707 (Given - Provider: Jean Claude Garrett RN) 0840 (Given - Provider: Cari Norman RN)1655 (Given - Provider: Cari Norman RN) 0817 (Given - Provider: Cari Norman RN)1700 (Canceled Entry - Provider: Automatic Discharge Provider - Comment: Automatically canceled at discontinue of medication order) finasteride (PROSCAR) tablet 5 mg 5 mg, oral, Daily, First dose (after last modification) on 04/24/25 at 0900, Hazardous Medication Intact: - Single pair of ASTM standard [id number] certified gloves - Eye/face protection if vomit or potential to spit up - Do NOT split, crush, or open dosage units 0915 (Given - Provider: Jean Claude Garrett RN) 0840 (Given - Provider: Cari Norman RN) 0817 (Given - Provider: Cari Norman RN) meropenem (MERREM) 500 mg in sodium chloride 0.9 % 50 mL IVPB (COMPLETED) 500 mg, intravenous, at 100 mL/hr, Administer over 30 Minutes, Every 12 hours, First dose on 04/26/25 at 1100, For 7 days, Indication: Urinary Tract/Genitourinary, Authorizing ID: Approval Pending [id number] (New Bag - Provider: Jean Claude Garrett RN - Comment: workflow)1220 (Stopped - Provider: Jean Claude Garrett RN)5246 (New Bag - Provider: Pasha Washington, ROLY)2356 (Stopped - Provider: Pasha Washington RN) polyethylene glycol (MIRALAX) packet 17 g 17 g, oral, Nightly, First dose (after last modification) on Sat04/23/25 at 2353, Bowel Regimen - for prevention of constipation 2002 (Given - Provider: Pasha Washington RN) 2120 (Not Given - Provider: Janey Sarkar, ROLY - Reason: Patient/Resident/Age nt refused - education provided ) senna (SENOKOT) tablet 17.2 mg 17.2 mg (2 tablet), oral, 2 times daily, First dose (after last modification) on Sat04/23/25 at 2353 0908 (Not Given - Provider: Jean Claude Garrett RN - Reason: Patient/Resident/Age nt refused - education provided )2002 (Given - Provider: Pasha Washington RN) 0840 (Given - Provider: Cari Norman RN)2120 (Not Given - Provider: Janey Sarkar RN - Reason: Patient/Resident/Age nt refused - education provided ) 0804 (Not Given - Provider: Cari Norman RN - Reason: Patient/Resident/Agent refused - education provided ) sodium bicarbonate tablet 650 mg 650 mg, oral, 2 times daily, First dose on Sat05/03/25 at 1130 1203 (Given - Provider: Cari Norman RN)2121 (Not Given - Provider: Janey Sarkar RN - Reason: Patient/Resident/Age nt refused - education provided ) 0816 (Given - Provider: Cari Norman, ROLY) sodium chloride 0.9 % flush 10 mL(Linked Group 1) 10 mL, intravenous, 2 times daily, First dose (after last modification) on Sat04/23/25 at 2353 0915 (Given - Provider: Jean Claude Garrett, ROLY)2003 (Given - Provider: Pasha Washington, ROLY) 0844 (Given - Provider: Cari Norman RN)2120 (Given - Provider: Janey Sarkar RN) 0821 (Given - Provider: Cari Norman RN) tamsulosin (FLOMAX) 24 hr capsule 0.8 mg 0.8 mg, oral, Nightly, First dose (after last modification) on Sat04/23/25 at 2353, For oral administration: capsules should be swallowed whole (Do not crush, chew, or open). For tube administration: open capsule and administer with water (granules should NOT be crushed). 2002 (Given - Provider: Pasha Washington, ROLY) 2119 (Given - Provider: Janey Sarkar, ROLY) PRN Medication Order 05/02/2025 05/03/2025 05/04/2025 acetaminophen (TYLENOL) tablet 650 mg 650 mg, oral, Every 6 hours PRN, mild pain, fever - temperature GREATER than 38 C (100.4 F), Starting on Sat04/23/25 at 2352 LORazepam (ATIVAN) tablet 0.5 mg 0.5 mg, oral, Every 12 hours PRN, anxiety, Starting on Grace 04/29/25 at 1525 naloxone (NARCAN) injection 0.04 mg 0.04 mg, intravenous, As needed, opioid reversal, IV Push every 1 min for 10 doses, Starting on Sat04/23/25 at 2352, For 10 doses, To Dilute: -Use 0.4 mg/mL vial , withdraw 1 mL and add 9 mL NS -FOLLOWING DILUTION, dose of 0.04 mg = 1 mL For PARTIAL Opioid Reversal: -For respiratory rate LESS than 10 or [place]ero Opioid-induced Sedation Scale (POSS) equal to 4 -May be repeated at 1 minute intervals to restore adequate respirations -Administer up to 10 doses (0.4 mg) ondansetron (PF) (ZOFRAN) injection 4 mg(Linked Group 2) 4 mg, intravenous, Every 8 hours PRN, vomiting, nausea, Starting on 04/24/25 at 0006, -ONLY give IV if patient is unable to take orally. -If inadequate response within 30 minutes, proceed to next-line agent or contact provider if no further options ordered. ondansetron ODT (ZOFRAN-ODT) disintegrating tablet 4 mg(Linked Group 2) 4 mg, oral, Every 8 hours PRN, vomiting, nausea, Starting on 04/24/25 at 0006, -Give IV if patient is unable to take orally. -If inadequate response within 30 minutes, proceed to next-line agent or contact provider if no further options ordered. For ODT tablets: -Do not remove from blister pack until just before administering. -Patient should allow tablet to dissolve on tongue. sodium chloride 0.9 % flush 10 mL(Linked Group 1) 10 mL, intravenous, As needed, line care, Starting on Sat04/23/25 at 2352 Linked Groups Order Group 1: Insert peripheral IV (CANCELED) STAT, Once, On Sat04/23/25 at 2353, For 1 occurrence And Maintain IV access (CANCELED) Until discontinued, Starting on Sat04/23/25 at 2353, Until Specified And Saline lock IV (CANCELED) Routine, Once, On Sat04/23/25 at 2353, For 1 occurrence And sodium chloride 0.9 % flush 10 mLJump to med 10 mL, intravenous, 2 times daily, First dose (after last modification) on Sat04/23/25 at 2353 And sodium chloride 0.9 % flush 10 mLJump to med 10 mL, intravenous, As needed, line care, Starting on Sat04/23/25 at 2352 Group 2: ondansetron ODT (ZOFRAN-ODT) disintegrating tablet 4 mgJump to med 4 mg, oral, Every 8 hours PRN, vomiting, nausea, Starting on 04/24/25 at 0006, -Give IV if patient is unable to take orally. -If inadequate response within 30 minutes, proceed to next-line agent or contact provider if no further options ordered. For ODT tablets: -Do not remove from blister pack until just before administering. -Patient should allow tablet to dissolve on tongue. Or ondansetron (PF) (ZOFRAN) injection 4 mgJump to med 4 mg, intravenous, Every 8 hours PRN, vomiting, nausea, Starting on 04/24/25 at 0006, -ONLY give IV if patient is unable to take orally. -If inadequate response within 30 minutes, proceed to next-line agent or contact provider if no further options ordered. documented in this encounter Orders Medications Ordered That Elroy ht Not Have Been Administered Count Last Ordered Date First Ordered Date ondansetron (PF) (ZOFRAN) injection 4 mg 2 04/24/2025 04/23/2025 ondansetron ODT (ZOFRAN-ODT) disintegrating tablet 4 mg 1 04/24/2025 acetaminophen (TYLENOL) tablet 650 mg 1 naloxone (NARCAN) injection 0.04 mg 1 04/23 sodium chloride 0.9 % flush 10 mL 1 025 Diet Count Last Ordered Date First Orde red Date ADULT DISCHARGE DIET 1 05/04/2025 Nursing Count Last Ordered Date First Orde red Date ACTIVITY 1 05/04/2025 FOLLOW UP PRIMARY PHYSICIAN 1 05/04/2025 STRAIGHT CATH 1 04/23/2025 Consult Count Last Ordered Date First Orde red Date IP CONSULT TO INFECTIOUS DISEASES 1 025 IP CONSULT TO PSYCHIATRY 1 04/24/2025 IP CONSULT TO SOCIAL WORK 1 04/24/2025 IP CONSULT TO NEPHROLOGY 1 04/23/2025 Respiratory Care Count Last Ordered Date First Ordered Date OXYGEN THERAPY, ADULT 3 04/28/20252024 Admission Count Last Ordered Date First Orde red Date ADMIT TO INPATIENT 1 04/25/2025 INITIATE OBSERVATION STATUS 1 04/23/2025 Transfer Count Last Ordered Date First Orde red Date ED TO FLOOR BED REQUEST 1 04/23/2025 Discharge Count Last Ordered Date First Orde red Date DISCHARGE PATIENT 1 05/04/2025 documented in this encounter Additional Health Concerns Infection Onset Date Last Indicated Resolved Time ESBL 04/22/2025 04/22/2025 documented as of this encounter Care Teams Physician Ophthalmologist Relationship Specialty Start Date End Date Physician, No Pcp PCP - General 03/04/25 documented as of this encounter
[2025-05-04 22:17] VITALS: BP 122/79; PULSE 78; RESP 16; TEMP 36.4; O2SAT 99
--- NOTE | 2025-05-05 00:19 | ED_ITS ---
HPI - General Adult General Chief complaint: General Medical Stated complaint: arrived @ [facility] 2hrs. does not want to be there Time Seen by Provider: 05/05/25 00:09 Source: patient and EMS Mode of arrival: EMS Limitations: no limitations History of Present Illness ED Provider: DR. Chow HPI narrative: 64-year-old male PMHx HTN, CKD, prostatomegaly, BPH, HF are EF 28% anemia of chronic disease, right lower extremity DVT on Eliquis had a recent admission to [facility] for obstructive uropathy with urinary retention, patient now require self catheterization because can not tolerate Colvin catheter, patient was discharged from [facility] to [facility] last night patient did not like the Rehab place 2 hours after his arrival to the rehab place, called 911 patient was brought to [facility] for further evaluation. Patient currently has no complaints he just want to be placed in the different rehab facility. Related Data Allergies Allergy/AdvReac Type Severity Reaction Status Date / Time No Known Allergies Allergy Verified 05/04/25 22:20 Review of Systems Review of Systems: all other systems are reviewed and are negative Constitutional: Reports as per HPI and Reports no additional constitutional complaints Eyes: Reports as per HPI and Reports no additional eye complaints Reports system reviewed and no additional complaints, except as documented Cardiovascular: Reports as per HPI and Reports no additional cardiovascular complaints Respiratory: Reports as per HPI and Reports no additional respiratory complaints Gastrointestinal: Reports as per HPI and Reports no additional gastrointestinal complaints Genitourinary: Reports no additional female genitourinary complaints Musculoskeletal: Reports no additional musculoskeletal complaints Skin/Breast: Reports system reviewed and no additional complaints, except as docu Psychiatric: Reports no additional psychiatric complaints Endocrine: Reports no additional endocrine complaints Hematologic/Lymphatic: Reports no additional hematologic/lymphatic complaints Allergic/Immunologic: Reports no additional allergic/immunologic complaints Reports system reviewed and no additional complaints, except as documented and Reports Abnormal speech present PMFSH Social History Social History Advance Directives: No Advance Directives Information Provided: Yes Do you have a plan to hurt others: No Plan Physical Exam ED Vital Signs: Vital Signs - 24 hr 05/04/25 22:17 05/05/25 05:37 Temperature 97.5 F 97.9 F Pulse Rate 78 77 Respiratory Rate 16 18 Blood Pressure 122/79 106/79 Pulse Oximetry 99 95 Oxygen Delivery Method Room Air Room Air BMI result Body Mass Index 30.0 Vital signs have been reviewed and appear to be correct. Blood pressure elevated. Heart rate normal. Respiratory rate normal. Temperature normal. Oxygen saturation normal. Appearance: Alert. Oriented X3. No acute distress. Head: Normal external exam. Normocephalic. Atraumatic. No Lema signs noted. No raccoon eyes noted Eyes: PERRLA. EOMI. Conjunctiva and sclera normal. Eyelids normal. ENT: TM's Normal. Pharynx normal. Uvula midline. Moist mucous membranes. No trismus noted. No drooling noted. No muffled voice noted. Neck: Normal inspection. Neck supple. FROM. No adenopathy. Thyroid Normal. No meningeal signs. No neck mass noted. CVS: Normal heart rate and rhythm. Heart sound normal. No murmurs noted. Pulses normal throughout. Respiratory: No respiratory distress. Painless inspiration. Breath sounds normal. No wheezes/rales/rhonchi noted. Chest nontender. No accessory muscle usage noted or decreased air movement noted. Abdomen: Soft and nontender. Bowel sounds normal in all 4 quadrants. No distention noted. No organomegaly noted. No visible injury noted. Back: No CVA tenderness. Full range of motion noted. Skin: Skin warm and dry. Normal skin color. Normal skin turgor. No rashes/lesions/lacerations noted. Extremities: No lower extremity edema. Extremities exhibit normal range of motion. Extremities nontender. Neuro: Oriented X 3. Cranial nerve exam: II-XII are grossly intact No motor deficit. No sensory deficit. Reflexes normal. Course Reevaluation(s) Reevaluation #1: Start physician observation for placement, labs from [facility] was reviewed and was unremarkable, will get case management consultation for placement. Time: 01:30 Reevaluation #2: 05/05/2025 0914 Kimmie Anthony PA-C ---> Had an extensive conversation with the patient who confirmed he does not want to be here or have any help with placement at a different short term rehab facility. Patient states that he would like to be discharged so that he can Uber to another location where he has resources / contacts. Upon reviewing the patient's notes from [facility], the patient does NOT have a guardian and was deemed to have medical decision capacity on 04/23/2025 and this was further reinforced with documentation from [facility]. Patient declined to have his morning medications dosed and states that he will take all of that when he gets to where he is going. Patient cleared for discharge. Observation ended at 0914 on 05/05/2025. Medical Decision Making Differential Diagnosis Differential Diagnoses: The differential diagnosis associated with the presentation includes ( Medical clearance, placement.) Admission/Observation Consideration of admission/observation: Escalation of care including admission/observation considered Discharge Plan Discharge Clinical Impression: Normal physical exam Patient Disposition: Home, Self-Care Instructions: Normal Exam (ED) Additional Instructions: IF you are prescribed home medications and/or you are taking over the counter medications at home - it is very important you continue to do so as prescribed / directed unless told otherwise by a healthcare provider. Follow up with your primary care provider. Do your best to stay well hydrated and rest. Return to the emergency department immediately if your symptoms worsen or if you develop any numbness, tingling, dizziness, shortness of breath, difficulty breathing, chest pain, blurry vision, loss of vision, nausea, vomiting, abdominal pain, fever, chills, back pain, or any other complaints. Please see the information below about our Patient Portal. If you are not yet enrolled in the [facility] Patient Portal, you will receive an enrollment email invitation following your visit to any [facility] care setting. You may also self-enroll in the Patient Portal by visiting our website: [email or web address] The following information is required to access the Patient Portal: - Your [facility] Medical Record Number - Your personal home email address (must match what is in your electronic medical record, Registration staff can assist with this) - Name - Date of Capabilities of the Patient Portal: - Message some providers - View upcoming appointments - Access your health summary, medical history, and visit history - View current conditions and allergies - View procedure and lab results - View your medications, including guidelines, side effects, and precautions - Complete pre-appointment questionnaires requested by your provider - Ready summary reports of your office visits and procedures To access the Patient Portal Mobile Maddie, follow these directions: - Search [employer] in the [employer] Store or [employer] Store - Download the Maddie - Search for [facility] - Enter your login/password Print Language: Slovenian
--- OUTSIDE RECORDS SUMMARY | 2025-05-05 01:40 | XMS_ITS | Clinical Summary ---
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 Active tamsulosin (FLOMAX) 0.4 mg 24 hr capsule Take 2 capsules (0.8 mg total) by mouth 1 (one) time each day. Capsules should be taken 30 minutes following the same meal each day. Active bumetanide (BUMEX) 1 mg tablet Take 1 tablet (1 mg total) by mouth 1 (one) time each day. 5 05/05/20 26 Active carvediloL (COREG) 3.125 mg tablet Take 1 tablet (3.125 mg total) by mouth 2 (two) times a day with meals. 5 05/04/20 Active finasteride (PROSCAR) 5 mg tablet Take 1 tablet (5 mg total) by mouth 1 (one) time each day. Do not crush, chew, or split. 5 05/05/20 Active senna (SENOKOT) 8.6 mg tablet Take 2 tablets (17.2 mg total) by mouth 2 (two) times a day. 5 05/04/20 26 Active sodium bicarbonate 650 mg tablet Take 1 tablet (650 mg total) by mouth 2 (two) times a day. 5 05/04/20 Active furosemide (LASIX) 20 mg tabletIndicatio ns:edema Take 1 tablet (20 mg total) by mouth 1 (one) time each day. 05/04/20 25 Discontinu ed(Stop Taking at Discharge) Active Problems Problem Noted Date Diagnosed Date Obstructive uropathy 04/23/2025 Urinary retention 04/22/2025 Left leg pain 03/22/2025 ARF (acute renal failure) 03/21/2025 Encounters Date Type Department Care Team Description 04/23/2025 8:11 PM EST - 05/04/2025 5:00 PM EST Hospital Encounter [facility] Medical Surgical Unit [address] [place] [phone] Micki Hayes MD Jones, Christopher, MD Nasser, Nada S, MD Zipagan, James T, MD Santoyo-Pacheco, Omar D, MD Rasul, Yar M, MD Urinary retention (Primary Dx); Obstructive uropathy; Gross hematuria; Bilateral leg edema Discharge Disposition: Fdc Facility 04/22/2025 5:31 AM EST - 04/23/2025 4:03 PM EST Hospital Encounter [facility] Urology Unit [address] [place] [phone] Lalita Moseley MD Killelea, Alison G, MD Flores, Carlos M, MD Rasul, Yar M, MD Urinary retention (Primary Dx); Hydronephrosis, unspecified hydronephrosis type; Anasarca; Bilateral pleural effusion; Bilateral leg edema; Hematoma of thigh, left, subsequent encounter; Noncompliance by refusing intervention or support Discharge Disposition: Left Against Medical Advice 04/16/2025 11:16 AM EST - 04/16/2025 4:38 PM [facility] Emergency [facility] Emergency [address] [place] [phone] Urinary retention due to benign prostatic hyperplasia (Primary Dx); Unhoused person; Malingering Discharge Disposition: Home or Self Care 04/12/2025 6:50 PM EST - 04/12/2025 9:08 PM [facility] Emergency [facility] Emergency [address] [place] [phone] Lalita Carrillo MD Homeless (Primary Dx) Discharge Disposition: Home or Self Care 03/21/2025 3:17 PM EDT - 03/24/2025 2:59 PM EDT Hospital Encounter [facility] Intermediate Care Unit [address] [place] [address] Remigio Saab MD Ishtiaq, Rizwan, MD Kela, Hetcor Goff MD Left leg pain (Primary Dx); Homelessness; Uncontrolled hypertension; Acute renal failure, unspecified acute renal failure type ([facility] V24) Discharge Disposition: Home or Self Care 03/05/2025 12:16 PM EDT - 03/05/2025 2:11 PM EDT Emergency [facility] Emergency [address] [place] [phone] Frantz Morales MD Cellulitis of left lower extremity (Primary Dx) Discharge Disposition: Left Against Medical Advice 03/05/2025 1:30 AM EDT - 03/05/2025 1:55 AM EDT Emergency [facility] Emergency [address] [place] [phone] Malingering (Primary Dx) Discharge Disposition: Home or Self Care 03/04/2025 5:58 PM EDT - 03/04/2025 9:37 PM EDT Emergency [facility] Emergency [address] [place] [phone] Malingering (Primary Dx) Discharge Disposition: Home or Self Care 03/04/2025 3:30 AM EDT - 03/04/2025 3:39 AM EDT Emergency [facility] Emergency [address] [place] [phone] Pyuria due to bacterial urinary tract infection (Primary Dx); Skin irritation Discharge Disposition: Home or Self Care from Last 3 Months Medical History Medical History Date Comments Hypertension DVT (deep venous thrombosis) (CMS/HCC V24, CMS/H CC V28) Social History Tobacco Use Types Packs/Day Years Used Date Smoking Tobacco: Former Cigarettes Smokeless Tobacco: Never Tobacco Cessation:Counseling Given: Not Answered Alcohol Use Standard Drinks/Week Comments Not Currently [...] your doctor or pharmacy? Not on file 025 Financial Risk Answer Date Recorded How hard [...] for your loved ones. For example, child and family services specialist or elderly care for an older adult? [...] on file Sexual Orientation Not on file Last Filed Vital Signs Vital Sign Reading [...] Mass Index 27.16 04/23/2025 6:42 PM EST Plan of Treatment Health Maintenance Due Date Last Done Comments Colorectal Cancer Screening: Colonoscopy 1961 DTaP,Tdap,and Td Vaccines (1 - Tdap) 1980 Hepatitis A Vaccines (1 of 2 - Risk 2-dose series) 1980 Pneumococcal Vaccine: 50+ Years (1 of 2 - PCV) 1980 RSV Immunization Adult Patients (1 - Risk 50-74 years 1-dose series) 2011 Zoster Vaccines (1 of 2) 2011 HIV Screening 06/25/2023 Hepatitis C Screening 06/25/2023 Cholesterol Screening (Lipid Panel) 10/10/2023 10/09/2018, 10/09/2018, 04/09/2018 Depression Screening 05/27/2024 COVID-19 Vaccine ( - season) 2025 Influenza Vaccine (#1) 2025 Social Influencers of Health Screening 03/22/2026 03/22/2025 Hypertension/CHF/CAD Annual BMP Blood Test 05/02/2026 05/02/2025, 05/01/2025, 04/30/2025, Additional history exists HIB Vaccines Aged Out No longer eligi ble based on patient's age to complete this topic HPV Vaccines Aged Out No longer eligi ble based on patient's age to complete this topic Hepatitis B Vaccines Aged Out No long er eligible based on patient's age to complete this topic IPV Vaccines Aged Out No longer eligi ble based on patient's age to complete this topic MMR Vaccines Aged Out No longer eligi ble based on patient's age to complete this topic Meningococcal ACWY Vaccine Aged Out N o longer eligible based on patient's age to complete this topic Meningococcal B Vaccine Aged Out No l onger eligible based on patient's age to complete this topic RSV Immunization Patients Under 20 months Aged Out No longer eligible based on patient's age to complete this topic Varicella Vaccines Aged Out No longer eligible based on patient's age to complete this topic Procedures Procedure Name Priority Date/Time Associated Diagnosis Comments SST - GOLD Routine 05/03/2025 5:53 AM EST EXTRA TUBES Routine 05/03/2025 5:53 AM EST CBC WITH AUTO DIFFERENTIAL Timed 05/03/2025 5:53 AM EST CBC AND DIFFERENTIAL Timed 05/03/2025 5:53 AM EST CBC WITH AUTO DIFFERENTIAL Timed 05/02/2025 6:22 AM EST PHOSPHORUS Routine 05/02/2025 6:22 AM EST MAGNESIUM Routine 05/02/2025 6:22 AM EST BASIC METABOLIC PANEL Routine 05/02/2025 6:22 AM EST CBC AND DIFFERENTIAL Timed 05/02/2025 6:22 AM EST CBC WITH AUTO DIFFERENTIAL Timed 05/01/2025 7:11 AM EST PHOSPHORUS Routine 05/01/2025 7:11 AM EST MAGNESIUM Routine 05/01/2025 7:11 AM EST BASIC METABOLIC PANEL Routine 05/01/2025 7:11 AM EST CBC AND DIFFERENTIAL Timed 05/01/2025 7:11 AM EST CBC WITH AUTO DIFFERENTIAL Timed 04/30/2025 7:04 AM EST PHOSPHORUS Routine 04/30/2025 7:04 AM EST MAGNESIUM Routine 04/30/2025 7:04 AM EST BASIC METABOLIC PANEL Routine 04/30/2025 7:04 AM EST CBC AND DIFFERENTIAL Timed 04/30/2025 7:04 AM EST CBC WITH AUTO DIFFERENTIAL Timed 04/29/2025 7:18 AM EST PHOSPHORUS Routine 04/29/2025 7:18 AM EST MAGNESIUM Routine 04/29/2025 7:18 AM EST BASIC METABOLIC PANEL Routine 04/29/2025 7:18 AM EST CBC AND DIFFERENTIAL Timed 04/29/2025 7:18 AM EST OXYGEN THERAPY, ADULT Routine 04/28/2025 8:02 AM EST CBC WITH AUTO DIFFERENTIAL Timed 04/28/2025 6:00 AM EST CBC AND DIFFERENTIAL Timed 04/28/2025 6:00 AM EST BASIC METABOLIC PANEL Add-On 04/28/2025 5:57 AM EST SST - GOLD Routine 04/28/2025 5:57 AM EST EXTRA TUBES Routine 04/28/2025 5:57 AM EST OXYGEN THERAPY, ADULT Routine 04/27/2025 1:06 PM EST OXYGEN THERAPY, ADULT Routine 04/27/2025 1:06 PM EST XR CHEST 1 VIEW Routine 04/27/2025 12:44 PM EST ECG 12-LEAD STAT 04/27/2025 12:19 PM EST CBC WITH AUTO DIFFERENTIAL Timed 04/27/2025 6:44 AM EST PHOSPHORUS Routine 04/27/2025 6:44 AM EST MAGNESIUM Routine 04/27/2025 6:44 AM EST BASIC METABOLIC PANEL Routine 04/27/2025 6:44 AM EST CBC AND DIFFERENTIAL Timed 04/27/2025 6:44 AM EST CBC WITH AUTO DIFFERENTIAL Timed 04/26/2025 6:49 AM EST PROTHROMBIN TIME WITH INR Routine 04/26/2025 6:49 AM EST MAGNESIUM Routine 04/26/2025 6:49 AM EST PHOSPHORUS Routine 04/26/2025 6:49 AM EST BASIC METABOLIC PANEL Routine 04/26/2025 6:49 AM EST CBC AND DIFFERENTIAL Timed 04/26/2025 6:49 AM EST VAS US DUPLEX LOWER EXT VENOUS BILAT Routine 04/25/2025 4:08 PM EST Bilateral leg edema US EXTREMITY NONVASCULAR LIMITED LEFT Routine 04/25/2025 4:08 PM EST CBC WITH AUTO DIFFERENTIAL Timed 04/25/2025 7:07 AM EST PHOSPHORUS Routine 04/25/2025 7:07 AM EST MAGNESIUM Routine 04/25/2025 7:07 AM EST COMPREHENSIVE METABOLIC PANEL Routine 04/25/2025 7:07 AM EST CBC AND DIFFERENTIAL Timed 04/25/2025 7:07 AM EST C-REACTIVE PROTEIN Add-On 04/24/2025 6: 47 AM EST TREPONEMA PALLIDUM ANTIBODY WITH REFLEX TO RPR AND PARTICLE AGGLUTINATION Add-On 04/24/2025 6:47 AM EST VITAMIN B12 Add-On 04/24/2025 6:47 AM EST CBC WITH AUTO DIFFERENTIAL Timed 04/24/2025 6:47 AM EST CBC AND DIFFERENTIAL Timed 04/24/2025 6:47 AM EST BASIC METABOLIC PANEL Routine 04/24/2025 6:47 AM EST XR CHEST 2 VIEWS Routine 04/23/2025 9:47 AM EST ECG 12-LEAD Routine 04/23/2025 7:50 AM EST PROSTATE SPECIFIC ANTIGEN DIAGNOSTIC Add-On 04/23/2025 6:00 AM EST CBC WITH AUTO DIFFERENTIAL Routine 04/23/2025 6:00 AM EST B-TYPE NATRIURETIC PEPTIDE Routine 04/23/2025 6:00 AM EST CBC AND DIFFERENTIAL Routine 04/23/2025 6:00 AM EST MAGNESIUM Routine 04/23/2025 6:00 AM EST BASIC METABOLIC PANEL Routine 04/23/2025 6:00 AM EST VAS US DUPLEX LOWER EXT VENOUS BILAT Routine 04/22/2025 3:52 PM EST Bilateral leg edema Hematoma of thigh, left, subsequent encounter US EXTREMITY NONVASCULAR LIMITED LEFT Routine 04/22/2025 3:[address] CHEST WO CONTRAST STAT 04/22/2025 10:[address] ABDOMEN PELVIS WO CONTRAST STAT 04/22/2025 10:23 AM EST HEPATIC FUNCTION PANEL Add-On 6:30 AM EST CBC WITH AUTO DIFFERENTIAL STAT 04/22/2025 6:30 AM EST CBC AND DIFFERENTIAL STAT 04/22/2025 6:30 AM EST BASIC METABOLIC PANEL STAT 04/22/2025 6:30 AM EST URINALYSIS WITH REFLEX MICROSCOPIC STAT 04/22/2025 6:21 AM EST URINALYSIS WITH REFLEX MICROSCOPIC STAT 04/22/2025 6:21 AM EST MCCLOUD URINE CULTURE TUBE Routine 04/22/2025 6:20 AM EST EXTRA TUBES Routine 04/22/2025 6:20 AM EST CULTURE URINE Routine 04/22/2025 6:20 AM EST TROPONIN I HIGH SENSITIVITY STAT 04/16/2025 2:12 PM EST XR CHEST 2 VIEWS STAT 04/16/2025 1:44 PM EST M[place]LOUD URINE CULTURE TUBE STAT 04/16/2025 1:10 PM EST URINALYSIS WITH REFLEX MICROSCOPIC AND CULTURE STAT 04/16/2025 1:10 PM EST URINALYSIS WITH REFLEX MICROSCOPIC AND CULTURE STAT 04/16/2025 1:10 PM EST CULTURE URINE STAT 04/16/2025 1:10 PM EST ECG 12-LEAD STAT 04/16/2025 11:54 AM EST TROPONIN I HIGH SENSITIVITY STAT 04/16/2025 11:49 AM EST CBC WITH AUTO DIFFERENTIAL STAT 04/16/2025 11:27 AM EST LIPASE STAT 04/16/2025 11:27 AM EST COMPREHENSIVE METABOLIC PANEL STAT 04/16/2025 11:27 AM EST CBC AND DIFFERENTIAL STAT 04/16/2025 11:27 AM EST ECG ANNOTATED 03/25/2025 MAGNESIUM Routine 03/24/2025 9:42 AM EDT BASIC METABOLIC PANEL Routine 03/24/2025 9:42 AM EDT COMPLETE BLOOD COUNT Routine 03/24/2025 9:42 AM EDT PHOSPHORUS Routine 03/24/2025 9:42 AM EDT MAGNESIUM Routine 03/23/2025 6:23 AM EDT BASIC METABOLIC PANEL Routine 03/23/2025 6:23 AM EDT COMPLETE BLOOD COUNT Routine 03/23/2025 6:23 AM EDT PHOSPHORUS Routine 03/23/2025 6:23 AM EDT COMPLETE BLOOD COUNT Routine 03/22/2025 4:37 AM EDT BASIC METABOLIC PANEL Routine 03/22/2025 4:[address] LOWER EXTREMITY WO CONTRAST LEFT STAT 03/22/2025 2:28 AM EDT LAVENDER - EDTA Routine 03/21/2025 9:43 PM EDT LT BLUE - NA CITRATE Routine 03/21/2025 9:43 PM EDT EXTRA TUBES Routine 03/21/2025 9:43 PM EDT BASIC METABOLIC PANEL STAT 03/21/2025 9:43 PM EDT URINALYSIS WITH REFLEX MICROSCOPIC STAT 03/21/2025 6:35 PM EDT POTASSIUM, URINE, RANDOM STAT 03/21/2025 6:35 PM EDT OSMOLALITY, URINE STAT 03/21/2025 6:3 5 PM EDT SODIUM, URINE, RANDOM STAT 03/21/2025 6:35 PM EDT URINALYSIS WITH REFLEX MICROSCOPIC STAT 03/21/2025 6:35 PM EDT ECG 12-LEAD STAT 03/21/2025 6:[address] ABDOMEN PELVIS WO CONTRAST STAT 03/21/2025 6:05 PM EDT US EXTREMITY NONVASCULAR LIMITED LEFT STAT 03/21/2025 4:45 PM EDT CREATINE KINASE AND CKMB Add-On 03/21/2025 4:16 PM EDT CBC WITH AUTO DIFFERENTIAL STAT 03/21/2025 4:16 PM EDT CBC AND DIFFERENTIAL STAT 03/21/2025 4:16 PM EDT COMPREHENSIVE METABOLIC PANEL STAT 03/21/2025 4:16 PM EDT from Last 3 Months Results * SST tube (05/03/2025 5:53 AM EST) Only the most recent of2 resultswithin the time period is included. Extra Tube Hold for add-ons. 05/03/2025 8:02 AM EST [facility] Comment:Auto resulted. Blood Venous blood specimen / Unknown Venipuncture / Unknown 05/03/2025 5:53 AM EST 05/03/2025 6:19 AM EST us Ricardo Loredo MD LAB BLOOD ORDERABLES Final Resul t [facility] [address] [place] [address], [place] [phone] * (ABNORMAL) CBC auto differential (05/03/2025 5:53 AM EST) Only the most recent of14 resultswithin the time period is included. WBC 9.1 4.8 - 10.8 K/mcL LAB HEMETOLOGY METHOD 05/03/2025 6:28 AM [facility] RBC 4.10(L) 4.50 - 5.50 M/mcL LAB HEMETOLOGY METHOD 05/03/2025 6:28 AM [facility] Hemoglobin 10.4(L) 13.5 - 17.5 g/dL LAB HEMETOLOGY METHOD 05/03/2025 6:28 AM [facility] Hematocrit 33.1(L) 42.0 - 54.0 % LAB HEMETOLOGY METHOD 05/03/2025 6:28 AM [facility] MCV 81.7 79.0 - 98.0 FL LAB HEMETOLOGY METHOD 05/03/2025 6:28 AM [facility] MCH 25.7(L) 27.0 - 32.0 pcg LAB HEMETOLOGY METHOD 05/03/2025 6:28 AM [facility] MCHC 31.4(L) 32.0 - 37.0 g/dL LAB HEMETOLOGY METHOD 05/03/2025 6:28 AM [facility] RDW 15.5(H) 11.0 - 15.0 % LAB HEMETOLOGY METHOD 05/03/2025 6:28 AM [facility] Platelets 301 130 - 400 K/mcL LAB HEMETOLOGY METHOD 05/03/2025 6:28 AM [facility] MPV 10.8 7.0 - 11.0 FL LAB HEMETOLOGY METHOD 05/03/2025 6:28 AM [facility] NRBC 0.0 <1.0 % LAB HEMETOLOGY METHOD 05/03/2025 6:28 AM [facility] NRBC Absolute 0.00 <0.10 K/mcL LAB HEMETOLOGY METHOD 05/03/2025 6:28 AM [facility] Neutrophils Relative 67.0 % LAB HEMETOLOGY METHOD 05/03/2025 6:28 AM [facility] Lymphocytes Relative 18.2 % LAB HEMETOLOGY METHOD 05/03/2025 6:28 AM [facility] Monocytes Relative 12.8 % LAB HEMETOLOGY METHOD 05/03/2025 6:28 AM [facility] Eosinophils Relative 0.8 % LAB HEMETOLOGY METHOD 05/03/2025 6:28 AM [facility] Basophils Relative 0.6 % LAB HEMETOLOGY METHOD 05/03/2025 6:28 AM [facility] Immature Granulocytes Relative 0.6 % LAB HEMETOLOGY METHOD 05/03/2025 6:28 AM [facility] Neutrophils Absolute 6.07 1.50 - 7.00 K/mcL LAB HEMETOLOGY METHOD 05/03/2025 6:28 AM [facility] Lymphocytes Absolute 1.65 1.00 - 5.00 K/mcL LAB HEMETOLOGY METHOD 05/03/2025 6:28 AM [facility] Monocytes Absolute 1.16(H) 0.20 - 1.00 K/mcL LAB HEMETOLOGY METHOD 05/03/2025 6:28 AM [facility] Eosinophils Absolute 0.07 0.00 - 0.50 K/mcL LAB HEMETOLOGY METHOD 05/03/2025 6:28 AM EST [facility] Basophils Absolute 0.05 0.00 - 0.20 K/[facility] HEMETOLOGY METHOD 05/03/2025 6:28 AM EST [facility] Immature Granulocytes Absolute 0.05(H) 0.00 - 0.03 K/[facility] HEMETOLOGY METHOD 05/03/2025 6:28 AM EST [facility] Blood Venous blood specimen / Unknown Venipuncture / Unknown 05/03/2025 5:53 AM EST 05/03/2025 6:16 AM EST Cresencio Farias MD LAB BLOOD ORDERABLES Final Result Performing Organization Address [facility]/ZIP Co de Phone Number [facility] [address] [place] [address], [place] [phone] * (ABNORMAL) Phosphorus (05/02/2025 6:22 AM EST) Only the most recent of9 resultswithin the time period is included. Phosphorus 6.9(H) 2.5 - 4.5 mg/dL 05/02/2025 7:19 AM EST [facility] Blood Venous blood specimen / Unknown Venipuncture / Unknown 05/02/2025 6:22 AM EST 05/02/2025 6:45 AM EST us Rafita Contreras MD LAB BLOOD ORDERABLES F inal Result Performing Organization Address City/[facility]/ZIP Co de Phone Number [facility] [address] [place] [address], [place] [phone] * Magnesium (05/02/2025 6:22 AM EST) Only the most recent of10 resultswithin the time period is included. Magnesium 1.9 1.9 - 2.6 mg/dL 05/02/2025 7:18 AM EST [facility] Blood Venous blood specimen / Unknown Venipuncture / Unknown 05/02/2025 6:22 AM EST 05/02/2025 6:45 AM EST Rafita Contreras MD LAB BLOOD ORDERABLES F inal Result [facility] [address] [place] [address], * (ABNORMAL) Basic metabolic panel (05/02/2025 6:22 AM EST) Only the most recent of14 resultswithin the time period is included. Sodium 131(L) 133 - 145 mmol/L 05/02/2025 7:22 AM [facility] Potassium 4.8 3.5 - 5.5 mmol/L 05/02/2025 7:22 AM [facility] Chloride 99 96 - 110 mmol/L 05/02/2025 7:22 AM [facility] CO2 18(L) 21 - 32 mmol/L 05/02/2025 7:22 AM [facility] Anion Gap 14(H) 3 - 11 05/02/2025 7:22 AM [facility] Glucose 95 70 - 100 mg/dL 05/02/2025 7:22 AM [facility] BUN 98(H) 5 - 25 mg/dL 05/02/2025 7:22 AM [facility] Creatinine 3.48(H) 0.70 - 1.30 mg/dL 05/02/2025 7:22 AM [facility] eGFR 19(L) >=60 mL/min/1. 73m2 05/02/2025 7:22 AM [facility] Comment:Calculation based on the Chronic Kidney Disease Epidemiology Collaboration (CKD-EPI) equation refit without adjustment for race. BUN/Creatinine Ratio 28.2 05/02/2025 7:22 AM EST [facility] Calcium 7.7(L) 8.5 - 10.5 mg/dL 05/02/2025 7:22 AM EST [facility] Blood Venous blood specimen / Unknown Venipuncture / Unknown 05/02/2025 6:22 AM EST 05/02/2025 6:45 AM EST us Rafita Contreras MD LAB BLOOD ORDERABLES F inal Result [facility] [address] [place] [address], [place] [phone] * XR Chest 1 View (04/27/2025 12:44 [...] Signed Date: 04/27/2025 12:56 ET Workstation ID: [id number] Transcribed By: Self Edit Transcribed Date: 04/27/2025 [...] of the spine and shoulders. Procedure Note Uche Ham MD - 04/27/2025 PROCEDURE: AP chest [...] Signed Date: 04/27/2025 12:56 ET Workstation ID: [id number] Transcribed By: Self Edit Transcribed Date: 04/27/2025 12:51 ET Rafita Contreras MD IMG XR PROCEDURES Nidia l Result * ECG 12 lead (04/27/2025 12:19 PM EST) Only the most recent of4 resultswithin the time period is included. Ventricular Rate ECG 110 BPM GEMUSE Atrial Rate 110 BPM GEMUSE P-R Interval 132 ms GEMUSE QRS Duration 96 ms GEMUSE Q-T Interval 350 ms GEMUSE QTc 473 ms GEMUSE P Wave [place] 44 degrees GEMUSE R [place] 28 degrees GEMUSE T [place] -169 degrees GEMUSE ECG Interpretation Sinus tachycardia [...] Rafita Contreras MD ECG ORDERABLES Final Result TIRSO * (ABNORMAL) Prothrombin time with INR (04/26/2025 6:49 AM EST) Protime 17.9(H) 10.6 - 13.9 sec LAB COAGULATION METHOD 04/26/2025 7:32 AM EST [facility] INR 1.4 LAB COAGULATION METHOD 04/26/2025 7:32 AM EST [facility] Blood Venous blood specimen / Unknown Venipuncture / Unknown 04/26/2025 6:49 AM EST 04/26/2025 7:04 AM EST Chandan Law MD LAB BLOOD ORDERABLES Final Resu lt Performing Organization Address [facility] Co de Phone Number [facility] [address] [place] [address], [place] [phone] * US Extremity Nonvascular Limited Left (04/25/2025 4:08 PM EST) Only the most recent of3 resultswithin the time period is included. Anatomical Region Laterality Modality Extremity Left Ultrasound 04/25/2025 4:48 PM EST Impressions 04/25/2025 4:48 PM EST No change in medial lower left thigh hematoma. This document has been electronically signed by: Shashi Fleming MD on 04/25/2025 16:48:54 Narrative 04/25/2025 4:48 PM EST INDICATION: pain Left lower extremity nonvascular limited ultrasound Comparison: US/NC/SR - US EXT NONVASCULAR LIMITED LT - 04/22/25 15:44 EST Findings: In the medial lower left thigh there is a 5.2 x 2.5 x 6.4 cm hypoechoic collection with internal reticulations. No internal vascularity and no significant increased peripheral vascularity. Collections not significantly changed in size from prior. Procedure Note Shashi Fleming MD - 11/30/2025 INDICATION: pain Left lower extremity nonvascular limited ultrasound Comparison: US/NC/SR - US EXT NONVASCULAR LIMITED LT - [...] MD IMG US PROCEDURES Final Result * Vascular US duplex lower extremity venous bilateral (04/25/2025 4:08 PM EST) Only the most recent of2 resultswithin the time period is included. Anatomical Region Laterality Modality Vascular, Abdomen Ultrasound [...] Venous duplex ultrasound bilateral lower extremity Comparison: US/NC/SR - VAS US DUPLEX LOW EXT VENOUS BILAT - 04/22/25 15:21 EST Findings: There is occlusive thrombus again seen within the right popliteal vein. Otherwise, the visualized deep veins are fully compressible with normal Doppler color flow and spectral tracings. No popliteal cyst. Procedure Note Shashi Fleming MD - 04/25/2025 INDICATION: edema Venous duplex ultrasound bilateral lower extremity Comparison: US/NC/SR - VAS US DUPLEX LOW EXT VENOUS [...] by: Shashi Fleming MD on 04/25/2025 16:44:54 Chandan Law MD CV VASCULAR PROCEDURES Final Re sult * (ABNORMAL) Comprehensive metabolic panel (04/25/2025 7:07 AM EST) Only the most recent of3 resultswithin the time period is included. Sodium 138 133 - 145 mmol/L 04/25/2025 9:22 AM [facility] Potassium 4.5 3.5 - 5.5 mmol/L 04/25/2025 9:22 AM [facility] Chloride 106 96 - 110 mmol/L 04/25/2025 9:22 AM [facility] CO2 18(L) 21 - 32 mmol/L 04/25/2025 9:22 AM [facility] Anion Gap 14(H) 3 - 11 04/25/2025 9:22 AM [facility] Glucose 104(H) 70 - 100 mg/dL 04/25/2025 9:22 AM [facility] BUN 75(H) 5 - 25 mg/dL 04/25/2025 9:22 AM [facility] Creatinine 3.38(H) 0.70 - 1.30 mg/dL 04/25/2025 9:22 AM [facility] eGFR 20(L) >=60 mL/min/1. 73m2 04/25/2025 9:22 AM [facility] Comment:Calculation based on the Chronic Kidney Disease Epidemiology Collaboration (CKD-EPI) equation refit without adjustment for race. BUN/Creatinine Ratio 22.2 04/25/2025 9:22 AM [facility] Calcium 8.3(L) 8.5 - 10.5 mg/dL 04/25/2025 9:22 AM [facility] AST (SGOT) 99(H) 10 - 42 unit/L 04/25/2025 9:22 AM [facility] ALT (SGPT) 63(H) 10 - 60 unit/L 04/25/2025 9:22 AM [facility] Alkaline Phosphatase 327(H) 42 - 121 unit/L 04/25/2025 9:22 AM [facility] Total Protein 5.8(L) 6.0 - 8.0 g/dL 04/25/2025 9:22 AM [facility] Albumin 3.1(L) 3.2 - 5.0 g/dL 04/25/2025 9:22 AM [facility] Total Bilirubin 0.6 0.0 - 1.4 mg/dL 04/25/2025 9:22 AM [facility] Blood Venous blood specimen / Unknown Venipuncture / Unknown 04/25/2025 7:07 AM EST 04/25/2025 7:17 AM EST us Chandan Law MD LAB BLOOD ORDERABLES Final Resu lt [facility] [address] [place] [address], * Treponema pallidum antibody with reflex to RPR and particle agglutination (04/24/2025 6:47 AM EST) T. Pallidum Antibodies Negative Negative 04/24/2025 11:15 AM [facility] Blood Venous blood specimen / Unknown Venipuncture / Unknown 04/24/2025 6:47 AM EST 04/24/2025 7:03 AM EST us Chandan Law MD LAB BLOOD ORDERABLES Final Resu lt Performing Organization Address [facility]/ZIP Co de Phone Number [facility] [address] [place] [address], * (ABNORMAL) C-reactive protein (04/24/2025 6:47 AM EST) C-Reactive Protein 3.33(H) <=0.50 mg/dL 04/24/2025 5:14 PM EST [facility] Blood Venous blood specimen / Unknown Venipuncture / Unknown 04/24/2025 6:47 AM EST 04/24/2025 7:03 AM EST us Chandan Law MD LAB BLOOD ORDERABLES Final Resu lt Performing Organization Address [facility] Co de Phone Number [facility] [address] [place] [address], * (ABNORMAL) Vitamin B12 (04/24/2025 6:47 AM EST) Vitamin B-12 1,231(H) 211 - 911 pcg/mL 04/24/2025 11:09 AM EST [facility] Blood Venous blood specimen / Unknown Venipuncture / Unknown 04/24/2025 6:47 AM EST 04/24/2025 7:03 AM EST us Chandan Law MD LAB BLOOD ORDERABLES Final Resu lt Performing Organization Address City/[facility]/ZIP Co de Phone Number [facility] [address] [place] [address], [place] [phone] * XR Chest 2 Views (04/23/2025 9:47 AM EST) Only the most recent of2 resultswithin the time period is included. Anatomical Region Laterality Modality Body Radiographic Makenna ging 04/23/2025 9:51 AM EST Impressions 04/23/2025 9:56 AM EST An alveolar infiltrate consistent with pneumonia is present at the medial aspect of the base of the right lower lobe with, worsened since 04/16/2025. Again seen is a small right pleural effusion, likely associated with the infiltrate. Mild discoid atelectasis versus linear scarring near the left lung base is unchanged. Code 18475 -------- FINAL REPORT -------- Dictated By: Chalino Saldaña Dictated Date: 04/23/2025 09:51 ET Assigned Physician: Chalino Saldaña Reviewed and Electronically Signed By: Chalino Saldaña Signed Date: 04/23/2025 09:56 ET Workstation ID: [id number] Transcribed By: Self Edit Transcribed Date: 04/23/2025 09:51 ET Narrative 04/23/2025 9:56 AM EST HISTORY: The patient is a 64-year-old male with urinary retention. FINDINGS: Sitting AP and lateral radiographs of the chest are obtained. Again seen are degenerative degenerative changes of the thoracic spine, also demonstrated on the prior study performed 04/16/2025. The cardiac silhouette remains borderline enlarged. The aortic knob is calcified. An alveolar infiltrate is present at the medial aspect of the right lung base, likely in the right lower lobe, worsened since the prior study. Again seen is a small right pleural effusion, stable in size. Mild discoid atelectasis versus linear scarring is present at the left lung, unchanged. Procedure Note Chalino Saldaña MD - 04/23/2025 HISTORY: The patient is a 64-year-old male with urinary retention. FINDINGS: Sitting AP and lateral radiographs of the chest are obtained.Again seen are degenerative degenerative changes of the thoracic spine,also demonstrated on the prior study performed 04/16/2025. The cardiacsilhouette remains borderline enlarged. The aortic knob is calcified. Analveolar infiltrate is present at the medial aspect of the right lungbase, likely in the right lower lobe, worsened since the prior study.Again seen is a small right pleural effusion, stable in size. Milddiscoid atelectasis versus linear scarring is present at the left lung,unchanged. IMPRESSION: An alveolar infiltrate consistent with pneumonia is present at the medialaspect of the base of the right lower lobe with, worsened since04/16/2025. Again seen is a small right pleural effusion, likelyassociated with the infiltrate. Mild discoid atelectasis versus linearscarring near the left lung base is unchanged. Code 45733 -------- FINAL REPORT -------- Dictated By: Chalino Saldaña Dictated Date: 04/23/2025 09:51 ET Assigned Physician: Chalino Saldaña Reviewed and Electronically Signed By: Chalino Saldaña Signed Date: 04/23/2025 09:56 ET Workstation ID: [id number] Transcribed By: Self Edit Transcribed Date: 04/23/2025 09:51 ET us Ricardo Loredo MD IMG XR PROCEDURES Final Result * Prostate specific antigen diagnostic (04/23/2025 6:00 AM EST) PSA 1.26 0.00 - 4.00 ng/mL 04/23/2025 9:14 AM EST [facility] Blood Venous blood specimen / Unknown Venipuncture / Unknown 04/23/2025 6:00 AM EST 04/23/2025 6:16 AM EST Narrative [facility] - 04/23/2025 9:14 AM EST The Siemens Atell[employer] IM Chemiluminescent Immunoassay is used. Results obtained with different assay methods or kits cannot be used interchangeably. Results cannot be interpreted as absolute evidence of the presence or absence of malignant disease. us Ricardo Loredo MD LAB BLOOD ORDERABLES Final Resul t [facility] [address] [place] [address], * (ABNORMAL) B-type natriuretic peptide (04/23/2025 6:00 AM EST) BNP 2,137(H) <=100 pcg/mL 04/23/2025 7:01 AM EST [facility] Blood Venous blood specimen / Unknown Venipuncture / Unknown 04/23/2025 6:00 AM EST 04/23/2025 6:16 AM EST Narrative [facility] - 04/23/2025 7:01 AM EST Over the counter supplements containing high doses of biotin may interfere with this assay. If interference is suspected, patients shoud be retested after refraining from biotin supplements for 72 hours. us Lan Chao MD LAB BLOOD ORDERABLES Final Re sult [facility] [address] [place] [address], [place] [phone] * CT Chest wo Contrast (04/22/2025 10:29 AM EST) Anatomical Region Laterality Modality Body Computed Tomogra phy 04/22/2025 11:0 5 AM EST Impressions 04/22/2025 11:08 AM EST Moderate right and small left pleural effusions with adjacent atelectasis. Biatrial and biventricular dilation. Diffuse anasarca. Correlate for congestive heart failure/volume overload. -------- FINAL REPORT -------- Dictated By: NEWTON MOBLEY Dictated Date: 04/22/2025 11:05 ET Assigned Physician: NEWTON MOBLEY Reviewed and Electronically Signed By: NEWTON MOBLEY Signed Date: 04/22/2025 11:08 ET Workstation ID: [id number] Transcribed By: Self Edit Transcribed Date: 04/22/2025 11:05 ET Narrative 04/22/2025 11:08 AM EST PROCEDURE: Chest CT INDICATION: Pain TECHNIQUE: Chest CT without contrast. Multi planar reformats were created and interpreted. The examination was performed utilizing dose reduction techniques. Total DLP 1059 COMPARISON: 04/16/2025. FINDINGS: LUNGS/PLEURA: Central airways are patent. Moderate right and small left pleural effusions with adjacent atelectasis. No pneumothorax MEDIASTINUM: Thyroid gland is normal. Prominent mediastinal and bilateral hilar lymph nodes, likely reactive and related to volume status. Esophagus is normal. Biatrial and biventricular dilation. Severe coronary artery calcification. No pericardial effusion CHEST WALL: No axillary adenopathy. Diffuse anasarca UPPER ABDOMEN:Please see separately dictated CT of the abdomen/pelvis BONES: No acute fracture. Scattered degenerative changes seen throughout the bones. Procedure Note Newton Mobley MD - 04/22/2025 PROCEDURE: Chest CT INDICATION: Pain TECHNIQUE: Chest CT without contrast. Multi planar reformats were createdand interpreted. The examination was performed utilizing dose reductiontechniques. Total DLP 1059 COMPARISON: 04/16/2025. FINDINGS: LUNGS/PLEURA: Central airways are patent. Moderate right and small leftpleural effusions with adjacent atelectasis. No pneumothorax MEDIASTINUM: Thyroid gland is normal. Prominent mediastinal and bilateralhilar lymph nodes, likely reactive and related to volume status.Esophagus is normal. Biatrial and biventricular dilation. Severecoronary artery calcification. No pericardial effusion CHEST WALL: No axillary adenopathy. Diffuse anasarca UPPER ABDOMEN:Please see separately dictated CT of the abdomen/pelvis BONES: No acute fracture. Scattered degenerative changes seen throughoutthe bones. IMPRESSION: Moderate right and small left pleural effusions with adjacent atelectasis.Biatrial and biventricular dilation. Diffuse anasarca. Correlate forcongestive heart failure/volume overload. -------- FINAL REPORT -------- Dictated By: NEWTON MOBLEY Dictated Date: 04/22/2025 11:05 ET Assigned Physician: NEWTON MOBLEY Reviewed and Electronically Signed By: NEWTON MOBLEY Signed Date: 04/22/2025 11:08 ET Workstation ID: [id number] Transcribed By: Self Edit Transcribed Date: 04/22/2025 11:05 ET us Maribel Ramírez MD IMG CT PROCEDURES Final Res ult * CT Abdomen Pelvis wo Contrast (04/22/2025 10:23 AM EST) Only the most recent of2 resultswithin the time period is included. Anatomical Region Laterality Modality Body Computed Tomogra phy 04/22/2025 11:0 5 AM EST Impressions 04/22/2025 11:12 AM EST Enlarged prostate with diffuse bladder wall thickening which may be related to chronic bladder outlet obstruction and/or cystitis. Distended bladder with mild bilateral hydronephrosis. Correlate for urinary retention. Hyperdensity within the left lower pole calyces and left renal pelvis compatible with blood products, new compared to 03/21/2025. -------- FINAL REPORT -------- Dictated By: NEWTON MOBLEY Dictated Date: 04/22/2025 11:05 ET Assigned Physician: NEWTON MOBLEY Reviewed and Electronically Signed By: NEWTON MOBLEY Signed Date: 04/22/2025 11:12 ET Workstation ID: [id number] Transcribed By: Self Edit Transcribed Date: 04/22/2025 11:05 ET Narrative 04/22/2025 11:12 AM EST PROCEDURE: CT abdomen/pelvis INDICATION: Distention, pain TECHNIQUE: CT of the abdomen and pelvis without contrast. Multiplanar reformats. The examination was performed utilizing dose reduction techniques. Total DLP 1105 COMPARISON: 03/21/2025 FINDINGS: LOWER THORAX: Please see separately dictated chest CT for intrathoracic findings. HEPATOBILIARY: Hepatic steatosis. No focal liver lesions. Cholelithiasis. No biliary duct dilatation. SPLEEN: No splenomegaly. PANCREAS: No focal mass or ductal dilatation. ADRENALS: No nodules. KIDNEYS/URETERS: Mild bilateral hydronephrosis and hydroureter. No renal or ureteral calculi. Hyperdensity in the lower pole calyces and left renal pelvis, new from prior. PELVIC ORGANS/BLADDER: Circumferential bladder wall thickening with distended bladder. Enlarged prostate PERITONEUM / RETROPERITONEUM: Small ascites. No fluid collection or free intraperitoneal air. No retroperitoneal or mesenteric lymphadenopathy VESSELS: Abdominal aorta is normal in size GI TRACT: No bowel obstruction or wall thickening. Colonic diverticulosis. Normal appendix. BONES AND SOFT TISSUES: Diffuse anasarca. No mass or fluid collection degenerative changes seen throughout the bones. Old healed fracture deformities of the right superior and inferior pubic rami. No acute fracture. Procedure Note Newton Mobley MD - 04/22/2025 PROCEDURE: CT abdomen/pelvis INDICATION: Distention, pain TECHNIQUE: CT of the abdomen and pelvis without contrast. Multiplanarreformats. The examination was performed utilizing dose reductiontechniques. Total DLP 1105 COMPARISON: 03/21/2025 FINDINGS: LOWER THORAX: Please see separately dictated chest CT for intrathoracicfindings. HEPATOBILIARY: Hepatic steatosis. No focal liver lesions.Cholelithiasis. No biliary duct dilatation. SPLEEN: No splenomegaly. PANCREAS: No focal mass or ductal dilatation. ADRENALS: No nodules. KIDNEYS/URETERS: Mild bilateral hydronephrosis and hydroureter. No renalor ureteral calculi. Hyperdensity in the lower pole calyces and leftrenal pelvis, new from prior. PELVIC ORGANS/BLADDER: Circumferential bladder wall thickening withdistended bladder. Enlarged prostate PERITONEUM / RETROPERITONEUM: Small ascites. No fluid collection or freeintraperitoneal air. No retroperitoneal or mesenteric lymphadenopathy VESSELS: Abdominal aorta is normal in size GI TRACT: No bowel obstruction or wall thickening. Colonicdiverticulosis. Normal appendix. BONES AND SOFT TISSUES: Diffuse anasarca. No mass or fluid collectiondegenerative changes seen throughout the bones. Old healed fracturedeformities of the right superior and inferior pubic rami. No acutefracture. IMPRESSION: Enlarged prostate with diffuse bladder wall thickening which may berelated to chronic bladder outlet obstruction and/or cystitis. Distended bladder with mild bilateral hydronephrosis. Correlate forurinary retention. Hyperdensity within the left lower pole calyces and left renal pelviscompatible with blood products, new compared to 03/21/2025. -------- FINAL REPORT -------- Dictated By: NEWTON MOBLEY Dictated Date: 04/22/2025 11:05 ET Assigned Physician: NEWTON MOBLEY Reviewed and Electronically Signed By: NEWTON MOBLEY Signed Date: 04/22/2025 11:12 ET Workstation ID: [id number] Transcribed By: Self Edit Transcribed Date: 04/22/2025 11:05 ET us Maribel Ramírez MD [facility] [place]ED[place] Final Res ult * (ABNORMAL) Hepatic function panel (04/22/2025 6:30 AM EST) Total Protein 5.5(L) 6.0 - 8.0 g/dL 04/22/2025 7:53 PM EST [facility] Albumin 3.1(L) 3.2 - 5.0 g/dL 04/22/2025 7:53 PM [facility] Total Bilirubin 0.6 0.0 - 1.4 mg/dL 04/22/2025 7:53 PM [facility] Bilirubin, Direct 0.3 0.0 - 0.3 mg/dL 04/22/2025 7:53 PM [facility] Bilirubin, Indirect 0.3 0.0 - 1.1 mg/dL 04/22/2025 7:53 PM [facility] ALT (SGPT) 21 10 - 60 unit/L 04/22/2025 7:53 PM [facility] AST (SGOT) 32 10 - 42 unit/L 04/22/2025 7:53 PM [facility] Alkaline Phosphatase 233(H) 42 - 121 unit/L 04/22/2025 7:53 PM [facility] Blood Venous blood specimen / Unknown Venipuncture / Unknown 04/22/2025 6:30 AM EST 04/22/2025 6:34 AM EST us Lan Chao MD LAB BLOOD ORDERABLES Final Re sult [facility] [address] [place] [address], * (ABNORMAL) Urinalysis with reflex microscopic (04/22/2025 6:21 AM EST) Only the most recent of2 resultswithin the time period is included. Specific [place] Urine 1.013 1.003 - 1.030 LAB URINALYSIS - AUTOMATED METHOD 04/22/2025 7:20 AM [facility] pH, Urine 6.5 5.0 - 8.0 pH LAB URINALYSIS - AUTOMATED METHOD 04/22/2025 7:20 AM [facility] Leukocytes, Urine Large(A) Negative LAB URINALYSIS - AUTOMATED METHOD 04/22/2025 7:20 AM [facility] Nitrite, Urine Negative Negative LAB URINALYSIS - AUTOMATED METHOD 04/22/2025 7:20 AM [facility] Protein, Urine 300(A) <=Trace mg/dL LAB URINALYSIS - AUTOMATED METHOD 04/22/2025 7:20 AM [facility] Glucose, Urine Negative Negative mg/dL LAB URINALYSIS - AUTOMATED METHOD 04/22/2025 7:20 AM [facility] Ketones, Urine Negative Negative mg/dL LAB URINALYSIS - AUTOMATED METHOD 04/22/2025 7:20 AM [facility] Urobilinogen, Urine 0.2 0.2 - 1.0 mg/dL LAB URINALYSIS - AUTOMATED METHOD 04/22/2025 7:20 AM [facility] Bilirubin, Urine Negative Negative LAB URINALYSIS - AUTOMATED METHOD 04/22/2025 7:20 AM [facility] Blood, Urine Large(A) Negative LAB URINALYSIS - AUTOMATED METHOD 04/22/2025 7:20 AM [facility] RBC, Urine >100(H) 0 - 4 /HPF 04/22/2025 7:20 AM [facility] WBC, Urine >100(H) 0 - 4 /HPF 04/22/2025 7:20 AM [facility] Squamous Epithelial, Urine 0 0 - 60 /LPF 04/22/2025 7:20 AM [facility] Bacteria, Urine Negative Negative /HPF 04/22/2025 7:20 AM [facility] Hyaline Casts, Urine 0 0 - 3 /LPF 04/22/2025 7:20 AM [facility] Urine Urine specimen from urinary conduit / Unknown Non-blood Collection / Unknown 04/22/2025 6:21 AM EST 04/22/2025 6:35 AM EST us Lalita Moseley MD LAB URINE ORDERABLES Final Resul t Performing Organization Address [facility] de Phone Number [facility] [address] [place] [address], [place] [phone] * Mccloud urine culture tube (04/22/2025 6:20 AM EST) Only the most recent of2 resultswithin the time period is included. Extra Tube Hold for add-ons. 04/22/2025 8:01 AM EST [facility] Comment:Auto resulted. Urine Urine specimen obtained by clean catch procedure / Unknown 04/22/2025 6:20 AM EST 04/22/2025 6:38 AM EST us Lalita Moseley MD LAB URINE ORDERABLES Final Resul t Performing Organization Address [facility] de Phone Number [facility] [address] [place] [address], [place] [phone] * (ABNORMAL) Culture urine (04/22/2025 6:20 AM EST) Only the most recent of2 resultswithin the time period is included. Culture, Urine >=100,000 CFU/mL Klebsiella oxytoca ESBL(A) ASH 04/26/2025 8:50 AM EST [facility] Comment: THIS ORGANISM IS POSITIVE FOR EXTENDED SPECTRUM BETA-LACTAMASE (ESBL). EXTENDED SPECTRUM BETA-LACTAMASE PRODUCING ORGANISMS DEMONSTRATE DECREASED ACTIVITY WITH PENICILLINS, CEPHALOSPORINS AND AZTREONAM. This is an edited result. Previous organism was Gram negative bacilli on 04/23/2025 at 1132 EST. Edited result: Previously reported as Klebsiella oxytoca on 04/25/2025 at 0839 EST. Urine Urinary bladder structure / Unknown Non-blood Collection / Unknown 04/22/2025 6:20 AM EST 04/22/2025 1:13 PM EST Narrative Organism Antibiotic Method Susceptibility Klebsiella oxytoca ESBL Amoxicillin/Clavulanate ASH >=32 ug/ml: Resistant Klebsiella oxytoca ESBL Ampicillin/Sulbactam ASH >=32 ug/ml: Resistant Klebsiella oxytoca ESBL Cefoxitin ASH <=4 ug/ml: Susceptible Klebsiella oxytoca ESBL Ceftazidime ASH <=0.5 ug/ml: Susceptible Klebsiella oxytoca ESBL Ceftriaxone ASH 8 ug/ml: Resistant Klebsiella oxytoca ESBL Cefepime ASH <=0.12 ug/ml: Susceptible Klebsiella oxytoca ESBL Meropenem ASH <=0.25 ug/ml: Susceptible Klebsiella oxytoca ESBL Amikacin ASH <=1 ug/ml: Susceptible Klebsiella oxytoca ESBL Gentamicin ASH <=1 ug/ml: Susceptible Klebsiella oxytoca ESBL Ciprofloxacin ASH <=0.06 ug/ml: Susceptible Klebsiella oxytoca ESBL Levofloxacin ASH <=0.12 ug/ml: Susceptible Klebsiella oxytoca ESBL Nitrofurantoin ASH <=16 ug/ml: Susceptible Klebsiella oxytoca ESBL Trimethoprim/Sul famethoxazo le ASH <=20 ug/ml: Susceptible Lan Chao MD LAB MICROBIOLOGY - GENERAL OR DERABLES Final Result Performing Organization Address City/[facility]/ZIP Co de Phone Number [facility] [address] [place] [address], * Troponin I high sensitivity (04/16/2025 2:12 PM EST) Only the most recent of2 resultswithin the time period is included. High Sensitivity Troponin I 47 <=53 ng/L 04/16/2025 3:44 PM EST [facility] Blood Venous blood specimen / Unknown Venipuncture / Unknown 04/16/2025 2:12 PM EST 04/16/2025 3:10 PM EST Christina ABDUL LAB BLOOD ORDERABLES Final R esult Performing Organization Address City/[facility]/ZIP Co de Phone Number [facility] [address] [place] [address], [place] [phone] * (ABNORMAL) Urinalysis with reflex microscopic and culture (04/16/2025 1:10 PM EST) Specific [place] Urine 1.011 1.003 - 1.030 LAB URINALYSIS - AUTOMATED METHOD 04/16/2025 1:59 PM [facility] pH, Urine 5.5 5.0 - 8.0 pH LAB URINALYSIS - AUTOMATED METHOD 04/16/2025 1:59 PM [facility] Leukocytes, Urine Small(A) Negative LAB URINALYSIS - AUTOMATED METHOD 04/16/2025 1:59 PM [facility] Nitrite, Urine Negative Negative LAB URINALYSIS - AUTOMATED METHOD 04/16/2025 1:59 PM [facility] Protein, Urine 100(A) <=Trace mg/dL LAB URINALYSIS - AUTOMATED METHOD 04/16/2025 1:59 PM [facility] Glucose, Urine Negative Negative mg/dL LAB URINALYSIS - AUTOMATED METHOD 04/16/2025 1:59 PM [facility] Ketones, Urine Negative Negative mg/dL LAB URINALYSIS - AUTOMATED METHOD 04/16/2025 1:59 PM [facility] Urobilinogen , Urine 0.2 0.2 - 1.0 mg/dL LAB URINALYSIS - AUTOMATED METHOD 04/16/2025 1:59 PM [facility] Bilirubin, Urine Negative Negative LAB URINALYSIS - AUTOMATED METHOD 04/16/2025 1:59 PM [facility] Blood, Urine Large(A) Negative LAB URINALYSIS - AUTOMATED METHOD 04/16/2025 1:59 PM [facility] RBC, Urine 5(H) 0 - 4 /HPF 04/16/2025 1:59 PM [facility] WBC, Urine 25(H) 0 - 4 /HPF 04/16/2025 1:59 PM [facility] Squamous Epithelial, Urine 0 0 - 60 /LPF 04/16/2025 1:59 PM EST [facility] Bacteria, Urine Negative Negative /HPF 04/16/2025 1:59 PM [facility] Hyaline Casts, Urine 0 0 - 3 /LPF 04/16/2025 1:59 PM EST [facility] Other Casts, Urine Rare Coarse Granular casts. /LPF 04/16/2025 1:59 PM [facility] Urine Urine specimen obtained by clean catch procedure / Unknown Non-blood Collection / Unknown 04/16/2025 1:10 PM EST 04/16/2025 1:31 PM EST Christina Silva [place] LAB URINE ORDERABLES Final R esult Performing Organization Address City/[facility]/ZIP Co de Phone Number [facility] [address] [place] [address], [place] [phone] * Lipase (04/16/2025 11:27 AM EST) Pathologist [facility] Lipase 43 12 - 53 unit/L 04/16/2025 12:13 PM [facility] Blood Venous blood specimen / Unknown Venipuncture / Unknown 04/16/2025 11:27 AM EST 04/16/2025 11:42 AM EST [facility] [place] LAB BLOOD ORDERABLES Final R esult [facility] [address] [place] [address], [place] [phone] * ECG-Annotated (03/25/2025) Provider Onbase MD ECG ORDERABLES Final Result * (ABNORMAL) Complete blood count (03/24/2025 9:42 AM EDT) Only the most recent of3 resultswithin the time period is included. WBC 7.6 4.8 - 10.8 K/[facility] HEMETOLOGY METHOD 03/24/2025 10:10 AM [facility] RBC 3.60(L) 4.50 - 5.50 M/[facility] HEMETOLOGY METHOD 03/24/2025 10:10 AM [facility] Hemoglobin 9.7(L) 13.5 - 17.5 g/dL LAB HEMETOLOGY METHOD 03/24/2025 10:10 AM [facility] Hematocrit 31.1(L) 42.0 - 54.0 % LAB HEMETOLOGY METHOD 03/24/2025 10:10 AM [facility] MCV 87.4 79.0 - 98.0 FL LAB HEMETOLOGY METHOD 03/24/2025 10:10 AM [facility] MCH 27.2 27.0 - 32.0 pcg LAB HEMETOLOGY METHOD 03/24/2025 10:10 AM [facility] MCHC 31.2(L) 32.0 - 37.0 g/dL LAB HEMETOLOGY METHOD 03/24/2025 10:10 AM [facility] RDW 16.2(H) 11.0 - 15.0 % LAB HEMETOLOGY METHOD 03/24/2025 10:10 AM [facility] Platelets 262 130 - 400 K/[facility] HEMETOLOGY METHOD 03/24/2025 10:10 AM [facility] MPV 10.4 7.0 - 11.0 [place] LAB HEMETOLOGY METHOD 03/24/2025 10:10 AM [facility] NRBC 0.0 <1.0 % LAB HEMETOLOGY METHOD 03/24/2025 10:10 AM [facility] NRBC Absolute 0.00 <0.10 [facility] [facility] HEMETOLOGY METHOD 03/24/2025 10:10 AM EDT [facility] Blood Venous blood specimen / Unknown Venipuncture / Unknown 03/24/2025 9:42 AM EDT 03/24/2025 10:00 AM EDT Hector Preciado MD LAB BLOOD ORDERABLE S Final Result [facility] [address] [place] [address], [place] [phone] * CT Lower Extremity wo Contrast Left (03/22/2025 2:28 AM EDT) Anatomical Region Laterality Modality Lower Extremities Left Computed Tomog deep 03/22/2025 4:32 AM EDT Impressions 03/22/2025 4:32 AM EDT Impression: 1. Indeterminate 6.0 x 2.0 x 4.8 cm slightly hyperattenuating collection identified within the subcutaneous soft tissues at the medial aspect of the distal left thigh, possibly consistent with a hematoma. Clinical correlation is advised. 2. Edema identified diffusely throughout the included left lower extremity soft tissues. This is nonspecific. Recommend clinical correlation for possible cellulitis. 3. Borderline bladder wall thickening. This is nonspecific, however recommend clinical correlation with urinalysis results to exclude underlying cystitis. This document has been electronically signed by: Gm West MD on 03/22/2025 04:32:54 Narrative 03/22/2025 4:32 AM EDT INDICATION: hematoma vs abscess Left lower extremity CT examination without contrast. Comparison: Comparison is made to left thigh ultrasound examination dated 03/21/2025. Findings: No acute fracture or dislocation injury identified. Old right superior and inferior ischiopubic ramus fractures are present. The left femoral head appears normal in contour and is appropriately positioned with respect to the left acetabulum. The left knee appears intact. Edema identified diffusely throughout the included left lower extremity soft tissues. No significant soft tissue gas identified. There is a focal 6.0 x 2.0 x 4.8 cm within the subcutaneous soft tissues of the medial aspect of the distal left thigh. This collection appears slightly hyperattenuating, possibly consistent with a hematoma. Vascular calcifications are present. Tiny, fat containing left inguinal hernia. Borderline bladder wall thickening. The bladder is incompletely visualized on this examination. Procedure Note Gm West MD - 03/22/2025 INDICATION: hematoma vs abscess Left lower extremity CT examination without contrast. Comparison: Comparison is made to left thigh ultrasound examinationdated 03/21/2025. Findings: No acute fracture or dislocation injury identified. Old right superiorand inferior ischiopubic ramus fractures are present. The left femoral head appears normal in contour and is appropriately positioned with respectto the left acetabulum. The left knee appears intact. Edema identified diffusely throughout the included left lower extremity soft tissues. No significant soft tissue gas identified. There is afocal 6.0 x 2.0 x 4.8 cm within the subcutaneous soft tissues of the medial aspect of the distal left thigh. This collection appears slightly hyperattenuating, possibly consistent with a hematoma. Vascular calcifications are present. Tiny, fat containing left inguinal hernia. Borderline bladder wall thickening. The bladder is incompletely visualized on this examination. IMPRESSION: Impression: 1. Indeterminate 6.0 x 2.0 x 4.8 cm slightly hyperattenuating collection identified within the subcutaneous soft tissues at the medial aspect of the distal left thigh, possibly consistent with a hematoma. Clinical correlation is advised. 2. Edema identified diffusely throughout the included left lowerextremity soft tissues. This is nonspecific. Recommend clinical correlation for possible cellulitis. 3. Borderline bladder wall thickening. This is nonspecific, however recommend clinical correlation with urinalysis results to exclude underlying cystitis. This document has been electronically signed by: Gm West MD on 03/22/2025 04:32:[address] PROCEDURES Final Result * Lavender tube (03/21/2025 9:43 PM EDT) Extra Tube Hold for add-ons. 03/21/2025 11:01 PM EDT [facility] Comment:Auto resulted. Blood Venous blood specimen / Unknown 03/21/2025 9:43 PM EDT 03/21/2025 9:51 PM EDT Juan F Jean MD LAB BLOOD ORDERABLES Final Res ult Performing Organization Address City/[facility]/ZIP Co de Phone Number [facility] [address] [place] [address], [place] [phone] * Light blue tube (03/21/2025 9:43 PM EDT) Extra Tube Hold for add-ons. 03/21/2025 11:01 PM EDT [facility] Comment:Auto resulted. Blood Venous blood specimen / Unknown 03/21/2025 9:43 PM EDT 03/21/2025 9:51 PM EDT Juan F Jean MD LAB BLOOD ORDERABLES Final Res ult Performing Organization Address [facility]/ZIP Co de Phone Number [facility] [address] [place] [address], [place] [phone] * Sodium, urine, random (03/21/2025 6:35 PM EDT) Sodium, Ur 35 mmol/L LAB CHEMISTRY METHOD 03/21/2025 7:19 PM EDT [facility] Urine Urine specimen obtained by clean catch procedure / Unknown Non-blood Collection / Unknown 03/21/2025 6:35 PM EDT 03/21/2025 6:40 PM EDT Vianca Vergara NP LAB URINE ORDERABLES Nidia l Result Performing Organization Address City/[facility]/ZIP Co de Phone Number [facility] [address] [place] [address], [place] [phone] * Potassium, urine, random (03/21/2025 6:35 PM EDT) Potassium, Ur 28.0 mmol/L LAB CHEMISTRY METHOD 03/21/2025 7:19 PM EDT [facility] Urine Urine specimen obtained by clean catch procedure / Unknown Non-blood Collection / Unknown 03/21/2025 6:35 PM EDT 03/21/2025 6:40 PM EDT Vianca Vergraa [employer] LAB URINE ORDERABLES Nidia l Result Performing Organization Address City/[facility]/ZIP Co de Phone Number [facility] [address] [place] [address], [place] [phone] * Osmolality, urine (03/21/2025 6:35 PM EDT) Pathologist [facility] Osmolality, Urine 345 300 - 1,300 mOsm/kg LAB CHEMISTRY METHOD 03/21/2025 7:17 PM EDT [facility] Urine Urine specimen obtained by clean catch procedure / Unknown Non-blood Collection / Unknown 03/21/2025 6:35 PM EDT 03/21/2025 6:40 PM EDT Vianca Vergara [employer] LAB URINE ORDERABLES Nidia l Result Performing Organization Address [facility]/ZIP Co de Phone Number [facility] [address] [place] [address], [place] [phone] * (ABNORMAL) Creatine kinase and CKMB (03/21/2025 4:16 PM EDT) Pathologist [facility] Total CK 96 22 - 269 unit/L LAB CHEMISTRY METHOD 03/21/2025 7:34 PM EDT [facility] CK-MB 4.4(H) 1.0 - 3.6 ng/mL LAB CHEMISTRY METHOD 03/21/2025 7:34 PM EDT [facility] CK-MB Index 0.0 0.0 - 5.0 LAB CHEMISTRY METHOD 03/21/2025 7:34 PM EDT [facility] Blood Venous blood specimen / Unknown Venipuncture / Unknown 03/21/2025 4:16 PM EDT 03/21/2025 4:22 PM EDT Camryn ABDUL LAB BLOOD ORDERABLES Fi nal Result [facility] [address] [place] [address], from Last 3 Months Additional Health Concerns Infection Onset Date Last Indicated ESBL 04/22/2025 04/22/2025 Insurance MEDICAID - [place] Advance Directives * Full Code - Default (Latest Code Status on File) Date Activated Date Inactivated Comments 04/23/2025 11:53 PM 05/04/2025 7:51 PM This is or vahe is used when code status has not been discussed with the patient, or code status is otherwise unknown/unconfirmed To update the patient's code status, place a code status order. Do not modify or discontinue any currently active code status orders. * Full Code - Default Date Activated Date Inactivated Comments 04/22/2025 11:22 AM 04/23/2025 6:13 PM This is o rder is used when code status has not been discussed with the patient, or code status is otherwise unknown/unconfirmed To update the patient's code status, place a code status order. Do not modify or discontinue any currently active code status orders. * Full Code - Default Date Activated Date Inactivated Comments 03/21/2025 6:54 PM 03/24/2025 5:01 PM This is or vahe is used when code status has not been discussed with the patient, or code status is otherwise unknown/unconfirmed To update the patient's code status, place a code status order. Do not modify or discontinue any currently active code status orders. 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
--- NOTE | 2025-05-05 03:39 | MHC.EDTECH ---
pt does not want to change into hospital attire.
[2025-05-05 05:37] VITALS: BP 106/79; PULSE 77; RESP 18; TEMP 36.6; O2SAT 95
--- NOTE | 2025-05-05 09:01 | PC.NURSE ---
Patient declining to provide this RN with his current med list stating he needs to go to [facility] or [facility] because thats where is advoacates are. States he took his meds yesterday and does not want any meds here. Provided with self cath kit per patients request. Deneis pain or discomfort, does not want breakfast he is not hungry. Is alert and oriented x 4 states he wants to be discharged and he will take an uber to where he needs to go .
[2025-05-05 09:26] VITALS: BP 106/79; PULSE 77; RESP 18; TEMP 36.6; O2SAT 95
--- NOTE | 2025-05-05 09:28 | MHC.CM.ED ---
Received case management consult overnight. Patient was d/c'd from [facility] to [facility]. Patient was at [facility] for 2 hours and then called 911 to transport him to the ER. Patient wanted to go to [facility]. However EMS brought patient to [place]. Kimmie ABDUL met with patient. Patient does not want treatment. Just wants a lyft. Lyft booked. Patient, Paulina DUNHAM and Kimmie paniagua. Continue to monitor for d/c needs.
== END 2025-05-05 09:26 | disposition home or self-care (01) ==
PROVIDERS: Emergency Provider Emergency Medicine; PCP Dentist General Practice
DX: Z72.89 Other problems related to lifestyle (principal)
CPT/HCPCS: 99282